=== PATIENT | male | born 1960 | race Caucasian/White ===

== ENCOUNTER 2017-01-05 20:09 | Emergency (ER) | payer BC ==
[~2017-01-05] VITALS: Ht 177.8 cm; Wt 93.2 kg
[~2017-01-05 20:09] MED LIST: AMLO10TA2 PO; ATEN50TA8 PO; CHLO10CA7 PO; OXYC1CAP5 PO; TRMCR130WC TOP; ZOLP10TA6 PO
[2017-01-05 20:14] VITALS: TEMP 36.7
[2017-01-05] MEDS ORDERED: SODIUM CHLORIDE 0.9% 1000ML 1,000 ML IV STA (20:44)
[2017-01-05] MEDS ORDERED: THIAMINE HCL 100 MG/ML 2 ML VIAL IV STA (20:44)
[2017-01-05 20:47] VITALS: Ht 177.8 cm; Wt 93.2 kg
--- NOTE | 2017-01-05 20:47 | EMERGENCY ROOM VISIT NOTE ---
History Report prepared by Shannonibe: Nia Carney Under the Supervision of: Dr. Mil Haskins D.O. First contact with patient: 20:24 Chief Complaint: BILATERAL LEG WEAKNESS Stated Complaint: LEG WEAKNESS History of Present Illness The patient is a 56 year old male who presents to the Emergency Room with complaints of persistent bilateral leg weakness. He is accompanied by his . He reports he was taking his dog for a walk earlier this evening, when as he was throwing sticks for his dog, both of his legs "gave out" and he fell down. He was able to crawl to his truck and call his for help. The patient recently underwent cataract surgery and reports the surgeon told him he had atrial fibrillation and was almost unable to have the surgery. He notes the atrial fibrillation is a very recent diagnoses and he does not take daily blood thinners. The patient reports he "smashed" his left shoulder 2 weeks ago after a fall. He does admit to heavy ETOH use but states he has cut back "90%". He denies any recent fevers, shortness of breath, chest pain, back pain, abdominal pain, nausea or vomiting. He admits to some neck pain but states this is chronic for him. 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 A total of 10 systems reviewed and were otherwise negative. Past Medical & Surgical Medical Problems: (1) Hypertension Surgical Problems: (1) History of appendectomy Family History Cancer Social History Smoking Status: Never Smoker Smokeless Tobacco Use: No Alcohol Use: heavy Drug Use: none Marital Status: Housing Status: lives with family Occupation Status: retired Current/Historical Medications Scheduled Alendronate Sodium (Fosamax), 70 MG PO WK Amlodipine Besylate (Norvasc), 10 MG PO DAILY Atenolol (Tenormin), 50 MG PO DAILY Chlordiazepoxide (Librium), 10 MG PO QID Omeprazole (Prilosec), 20 MG PO DAILY Ranitidine (Zantac), 300 MG PO HS Allergies Coded Allergies: Naltrexone (Verified Allergy, Unknown, Hallucinations, 01/05/17) ROSEANNE Inhibitors (Verified Adverse Reaction, Intermediate, Cough, 06/06/13) Physical Exam Vital Signs Date Time Temp Pulse Resp B/P (MAP) Pulse Ox O2 Delivery O2 Flow Rate FiO2 01/05/17 23:15 111 19 125/96 97 01/05/17 22:27 103 18 135/71 95 Room Air 01/05/17 21:21 108 01/05/17 20:55 94 Room Air 01/05/17 20:55 94 Room Air 01/05/17 20:14 36.7 90 18 124/84 94 Room Air Physical Exam GENERAL: Patient is awake, mildly intoxicated, but not anxious appearing. EYES: Horizontal nystagmus in both directions. The conjunctivae are clear. The pupils are round and reactive. EARS, NOSE, MOUTH AND THROAT: The nose is without any evidence of any deformity. Mucous membranes are moist tongue is midline NECK: The neck is nontender and supple. RESPIRATORY: Normal respiratory effort is noted there is no evidence of wheezing rhonchi or rales CARDIOVASCULAR: Regular rate and rhythm noted there no murmurs rubs or gallops normal S1 normal S2 GASTROINTESTINAL: The abdomen is soft. Bowel sounds are present in all quadrants. Abdomen is nontender MUSCULOSKELETAL/EXTREMITIES: There is no evidence of gross deformity full range of motion is noted in the hips and shoulders SKIN: Abrasions over both knees. Pedal edema noted bilaterally. No signs of cellulitis. There is no obvious evidence of any rash. There are no petechiae, pallor or cyanosis noted. NEUROLOGIC: Patient is awake alert and oriented x3 Patellar tendon reflexes 1+ bilaterally, patient did not have a drift in the lower extremities. Medical Decision & Procedures ER Provider Diagnostic Interpretation: Radiology results as stated below per my review and radiologist interpretation: CERVICAL SPINE CT CT DOSE: HISTORY: Trauma fall TECHNIQUE: Multiaxial CT images of the cervical spine were performed and reformatted in the sagittal and coronal plane without the use of contrast. COMPARISON: None. FINDINGS: No fractures. No subluxation. Prevertebral soft tissues and the C1-C2 interval are intact. No pneumothorax. Degenerative disc changes throughout IMPRESSION: No fractures within the cervical spine. Degenerative change Electronically signed by: Lalito Rowell M.D. 01/05/2017 9:41 PM CHEST ONE VIEW PORTABLE CLINICAL HISTORY: EVALUATE ALTERED MENTAL STATUS/WEAKNESS dyspnea COMPARISON STUDY: 01/03/2013 FINDINGS: Chronic left suprahilar and left apical glottic change. Lungs otherwise appear clear. Mild stable cardia megaly. Diaphragms smooth. IMPRESSION: Chronic change left apex. No acute process. Electronically signed by: Lalito Rowell M.D. 01/05/2017 9:[address]AST CT DOSE: 1143.26 mGy.cm HISTORY: Mental status change EVALUATE ALTERED MENTAL STATUS/WEAKNESS TECHNIQUE: Multiaxial CT images of the head were performed without the use of intravenous contrast. Comparison: None. Findings: The paranasal sinuses and mastoid air cells are clear. The calvarium and skull base are intact. The ventricles and sulci are within normal limits. There is no mass, hematoma, midline shift, or acute infarct. Impression: No acute intracranial abnormality. Electronically signed by: Lalito Rowell M.D. 01/05/2017 9:39 PM Laboratory Results 01/05/17 21:00 Red Blood Count 4.23, Mean Corpuscular Volume 91.3, Mean Corpuscular Hemoglobin 32.9, Mean Corpuscular Hemoglobin Concent 36.0, Mean Platelet Volume 8.8, Neutrophils (%) (Auto) 61.9, Lymphocytes (%) (Auto) 27.0, Monocytes (%) (Auto) 8.5, Eosinophils (%) (Auto) 2.1, Basophils (%) (Auto) 0.4, Neutrophils # (Auto) 4.12, Lymphocytes # (Auto) 1.80, Monocytes # (Auto) 0.57, Eosinophils # (Auto) 0.14, Basophils # (Auto) 0.03 01/05/17 21:00 Test 01/05/17 21:00 01/05/17 21:09 01/05/17 22:25 White Blood Count 6.67 K/uL (4.8-10.8) Red Blood Count 4.23 M/uL (4.7-6.1) Hemoglobin 13.9 g/dL (14.0-18.0) Hematocrit 38.6 % (42-52) Mean Corpuscular Volume 91.3 fL (80-100) Mean Corpuscular Hemoglobin 32.9 pg (25-34) Mean Corpuscular Hemoglobin Concent 36.0 g/dl (32-36) Platelet Count 296 K/uL (130-400) Mean Platelet Volume 8.8 fL (7.4-10.4) Neutrophils (%) (Auto) 61.9 % Lymphocytes (%) (Auto) 27.0 % Monocytes (%) (Auto) 8.5 % Eosinophils (%) (Auto) 2.1 % Basophils (%) (Auto) 0.4 % Neutrophils # (Auto) 4.12 K/uL (1.4-6.5) Lymphocytes # (Auto) 1.80 K/uL (1.2-3.4) Monocytes # (Auto) 0.57 K/uL (0.11-0.59) Eosinophils # (Auto) 0.14 K/uL (0-0.5) Basophils # (Auto) 0.03 K/uL (0-0.2) RDW Standard Deviation 43.7 fL (36.4-46.3) RDW Coefficient of Variation 13.1 % (11.5-14.5) Immature Granulocyte % (Auto) 0.1 % Immature Granulocyte # (Auto) 0.01 K/uL (0.00-0.02) Prothrombin Time 11.3 SECONDS (9.0-12.0) Prothromb Time International Ratio 1.1 (0.9-1.1) Activated Partial Thromboplast Time 27.3 SECONDS (21.0-31.0) Partial Thromboplastin Ratio 1.1 Anion Gap 13.0 mmol/L (3-11) Est Creatinine Clear Calc Drug Dose 105.2 ml/min Estimated GFR () 109.6 Estimated GFR (Non- 94.5 BUN/Creatinine Ratio 6.0 (10-20) Calcium Level 8.6 mg/dl (8.5-10.1) Magnesium Level 1.6 mg/dl (1.8-2.4) Total Bilirubin 0.3 mg/dl (0.2-1) Direct Bilirubin 0.1 mg/dl (0-0.2) Aspartate Amino Transf (AST/SGOT) 45 U/L (15-37) Alanine Aminotransferase (ALT/SGPT) 69 U/L (12-78) Alkaline Phosphatase 49 U/L (45-117) Total Creatine Kinase 177 U/L (39-308) Creatine Kinase MB 2.0 ng/ml (0.5-3.6) Creatine Kinase MB Ratio 1.1 (0-3.0) Troponin I < 0.015 ng/ml (0-0.045) Total Protein 8.0 gm/dl (6.4-8.2) Albumin 4.0 gm/dl (3.4-5.0) Lipase 142 U/L (73-393) Thyroid Stimulating Hormone (TSH) 1.330 uIu/ml (0.300-4.500) Free Thyroxine 1.03 ng/dl (0.80-1.60) Ethyl Alcohol mg/dL 336.0 mg/dl (0-3) Bedside Glucose 104 mg/dl (70-99) Urine Color YELLOW Urine Appearance CLEAR (CLEAR) Urine pH 5.0 (4.5-7.5) Urine Specific [place] 1.009 (1.000-1.030) Urine Protein NEG (NEG) Urine Glucose (UA) NEG (NEG) Urine Ketones NEG (NEG) Urine Occult Blood NEG (NEG) Urine Nitrite NEG (NEG) Urine Bilirubin NEG (NEG) Urine Urobilinogen NEG (NEG) Urine Leukocyte Esterase NEG (NEG) Urine Opiates Screen NEG (NEG) Urine Methadone, Qualitative NEG (NEG) Urine Barbiturates NEG (NEG) Urine Phencyclidine (PCP) Level NEG (NEG) Ur Amphetamine/Methamphetamine NEG (NEG) MDMA (Ecstasy) Screen NEG (NEG) Urine Benzodiazepines Screen POS (NEG) Urine Cocaine Metabolite NEG (NEG) Urine Marijuana (THC) NEG (NEG) Laboratory results per my review. Medications Administered Medications (Trade) Dose Ordered Sig/Oliva Route Start Time Stop Time Status Last Admin Dose Admin Sodium Chloride 1,000 ml @ 999 mls/hr Q1H1M STAT IV 01/05/17 20:44 01/05/17 21:44 DC 01/05/17 21:13 999 MLS/HR Thiamine HCl (Vitamin B-1 Inj) 100 mg NOW STAT IV 01/05/17 20:44 01/05/17 20:45 DC 01/05/17 21:14 100 MG Magnesium Sulfate (Magnesium Sulfate) 1 gm NOW STAT IV 01/05/17 21:38 01/05/17 21:39 DC 01/05/17 21:38 1 GM ECG Indication: weakness (bilateral leg weakness) Rate (beats per minute): 84 Rhythm: atrial fibrillation Findings: other (No PVC's, no acute ST segments abnormalities) Comparison ECG Date: Atrial fibrillation has replaced normal sinus rhythm compared to EKG from December 03, 2012 ED Course 2036: The patient was evaluated in room B2. A complete history and physical examination were performed. 2043: Thiamine HCl 100 mg IV, NSS 1000 ml @ 999 mls/hr IV. 2137: Magnesium Sulfate 1 gm IV. 2299: I reevaluated the patient. I discussed his results and discharge instructions and he verbalized complete understanding and agreement. Medical Decision Medication Reconciliation: I attest that I have personally reviewed the patient' s current medications list. Blood pressure screening: Patient was found to have normal blood pressure on screening and does not require follow-up. Prior records/ancillary studies reviewed and summarized above. Nursing notes reviewed. Differential diagnosis: Etiologies such as metabolic, infection, hypo/hyperglycemia, electrolyte abnormalities, cardiac sources, intracerebral event, toxicologic, neurologic, as well as others were entertained. The patient is a 56-year-old male who presented to the emergency department with his significant other for an evaluation of weakness in his lower extremity' s. The patient discusses that he was at an outdoor area with his dog when he started noticing inability to walk. The patient initially stated that he had a history of alcohol use in the past but states he has not drank alcohol in quite some time. I discussed the patient's laboratory and radiographic studies with him. The patient was found have a significant elevation in his alcohol level but I was more concerned that he would have an electrolyte abnormality such as potassium or magnesium that would be causing the patient's weakness. He did have fine mean and IV fluids in the emergency department. He was also treated with IV magnesium. I discussed the patient's laboratory and radiographic studies with him. On subsequent reevaluation he was feeling much better. I discussed his condition with his significant other is well. The patient was found have atrial fibrillation which she states is not new it was found recently when he was being treated for cataracts. At this time I discussed this diagnosis with him. He his rate is not uncontrolled and this is likely because of his other medications. The patient would not be a good candidate for anticoagulation at this time because of his chronic alcohol use. He states that he does fall from time to time. I discussed this with him as well as his significant other and stated that even his past medical history and age he should receive a formal workup by a pharmacy helper or his primary care physician to determine whether or not he could be started on anticoagulation as well as aggressive management to stop abusing alcohol. The patient was encouraged to rest and avoid any strenuous activity. He was also encouraged to continue all medications as prescribed. He was also encouraged return to the emergency department immediately if symptoms change worsen or the need arises. Impression Primary Impression: Alcohol intoxication Additional Impressions: Hypomagnesemia Weakness Atrial fibrillation Scribe Attestation The scribe's documentation has been prepared under my direction and personally reviewed by me in its entirety. I confirm that the note above accurately reflects all work, treatment, procedures, and medical decision making performed by me. Departure Information Dispostion Home / Self-Care Referrals Saumya Lala M.D. (PCP) Patient Instructions Atrial Fibrillation, ED Alcohol Abuse, My [facility] Additional Instructions Call your family to schedule follow-up appointment. You may require further workup and treatment for the atrial fibrillation. Drink plenty clear liquids. Avoid any further alcoholic beverages. Do not operate any heavy machinery including driving a vehicle for next 24 hours because your alcohol level was very elevated in the emergency department. Return to the emergency apartment immediately symptoms change worsen or the need arises. Problem Qualifiers Primary Impression: Alcohol intoxication Complication of substance-induced condition: uncomplicated Qualified Codes: F10.920 - Alcohol use, unspecified with intoxication, uncomplicated Additional Impressions: Atrial fibrillation Atrial fibrillation type: unspecified Qualified Codes: I48.91 - Unspecified atrial fibrillation
[2017-01-05 20:55] VITALS: O2SAT 94
[2017-01-05 21:15] LABS: BASO % 0.4 %; BASO ABS # 0.03 K/uL (0-0.2); COMPLETE YES; EOS % 2.1 %; HEMATOCRIT 38.6 % (42-52); IG% 0.1 %; MEAN CELL VOLUME 91.3 fL (80-100); MEAN CORPUSCULAR HEMOGLOBIN 32.9 pg (25-34); MEAN PLATELET VOLUME 8.8 fL (7.4-10.4); MONO % 8.5 %; NEUT % 61.9 %; PLATELET COUNT 296 K/uL (130-400); RED BLOOD COUNT 4.23 M/uL (4.7-6.1); WHITE BLOOD COUNT 6.67 K/uL (4.8-10.8)
[2017-01-05] MEDS ORDERED: ALEN70TA4 PO (21:21)
[2017-01-05] MEDS ORDERED: PRLSR20 PO (21:21)
[2017-01-05] MEDS ORDERED: RANI300T2 PO (21:21)
[2017-01-05 21:26] LABS: INR 1.1 (0.9-1.1); PARTIAL THROMBOPLASTIN RATIO 1.1; PROTHROMBIN TIME (PATIENT) 11.3 SECONDS (9.0-12.0)
[2017-01-05 21:30] LABS: ALT/SGPT 69 U/L (12-78); BLOOD UREA NITROGEN 6 mg/dl (7-18); CARBON DIOXIDE 23 mmol/L (21-32); CHLORIDE 95 mmol/L (98-107); CREATININE 0.91 mg/dl (0.60-1.40); GLUCOSE 102 mg/dl (70-99); MAGNESIUM 1.6 mg/dl (1.8-2.4); POTASSIUM 4.3 mmol/L (3.5-5.1); SODIUM 131 mmol/L (136-145)
--- NOTE | 2017-01-05 21:30 | DIAGNOSTIC IMAGING REPORT ---
CHEST ONE VIEW PORTABLE CLINICAL HISTORY: EVALUATE ALTERED MENTAL STATUS/WEAKNESS dyspnea COMPARISON STUDY: 01/03/2013 FINDINGS: Chronic left suprahilar and left apical glottic change. Lungs otherwise appear clear. Mild stable cardia megaly. Diaphragms smooth. IMPRESSION: Chronic change left apex. No acute process. Electronically signed by: Lalito Rowell M.D. 01/05/2017 9:29 PM Dictated Date/Time: 01/05/2017 9:28 PM
[2017-01-05] MEDS ORDERED: MAGNESIUM SULFATE 1GM / D5W 1 GM BAG IV STA (21:38)
[2017-01-05 21:40] LABS: AST/SGOT 45 U/L (15-37)
[2017-01-05 21:41] LABS: ALKALINE PHOSPHATASE 49 U/L (45-117); CKMB/CK RATIO 1.1 (0-3.0)
--- NOTE | 2017-01-05 21:41 | DIAGNOSTIC IMAGING REPORT ---
HEAD CT NONCONTRAST CT DOSE: 1143.26 mGy.cm HISTORY: Mental status change EVALUATE ALTERED MENTAL STATUS/WEAKNESS TECHNIQUE: Multiaxial CT images of the head were performed without the use of intravenous contrast. Comparison: None. Findings: The paranasal sinuses and mastoid air cells are clear. The calvarium and skull base are intact. The ventricles and sulci are within normal limits. There is no mass, hematoma, midline shift, or acute infarct. Impression: No acute intracranial abnormality. Electronically signed by: Lalito Rowell M.D. 01/05/2017 9:39 PM Dictated Date/Time: 01/05/2017 9:38 PM
--- NOTE | 2017-01-05 21:42 | DIAGNOSTIC IMAGING REPORT ---
CERVICAL SPINE CT CT DOSE: HISTORY: Trauma fall TECHNIQUE: Multiaxial CT images of the cervical spine were performed and reformatted in the sagittal and coronal plane without the use of contrast. COMPARISON: None. FINDINGS: No fractures. No subluxation. Prevertebral soft tissues and the C1-C2 interval are intact. No pneumothorax. Degenerative disc changes throughout IMPRESSION: No fractures within the cervical spine. Degenerative change Electronically signed by: Lalito Rowell M.D. 01/05/2017 9:41 PM Dictated Date/Time: 01/05/2017 9:40 PM
[2017-01-05 22:19] LABS: CALCIUM 8.6 mg/dl (8.5-10.1)
[2017-01-05 22:44] LABS: URINE APPEARANCE CLEAR (CLEAR); URINE BILIRUBIN NEG (NEG); URINE COLOR YELLOW; URINE NITRITE NEG (NEG); URINE SPECIFIC GRAVITY 1.009 (1.000-1.030); UROBILINOGEN NEG (NEG)
[2017-01-05 22:49] LABS: MANUAL MICROSCOPIC REQUIRED? NO; REVIEW REQ? NO
[2017-01-05 23:08] LABS: BENZODIAZEPINE, URINE POS (NEG); COCAINE,URINE NEG (NEG); PHENCYCLIDINE, URINE NEG (NEG)
[2017-01-05 23:15] VITALS: BP 125/96; PULSE 111; O2SAT 97
[2017-01-09 11:50] LABS: HYDROXYETHYLFLURAZEPAM CONF NEGATIVE NG/ML (CUTOFF=50); HYDROXYMIDAZOLAM NEGATIVE NG/ML (CUTOFF=50); HYDROXYTRIAZOLAM CONF NEGATIVE NG/ML (CUTOFF=50); TEMAZEPAM CONF NEGATIVE NG/ML (CUTOFF=50)
[2017-01-13] MEDS ORDERED: FLV1 PO (10:34)
[2017-01-13] MEDS ORDERED: METO50TA16 PO (10:34)
[2017-01-13] MEDS ORDERED: LPR100 PO (10:34)
[2017-01-13] MEDS ORDERED: THM100 PO (10:34)
[2017-01-13] MEDS ORDERED: CMD25 PO (10:34)
[2017-01-13] MEDS ORDERED: MULT-589 PO (10:34)
== END 2017-01-05 23:16 | disposition home or self-care (01) ==
LOC: C.EDB 20:11
DX: F10.920 Alcohol use, unspecified with intoxication, uncomplicated (principal); E83.42 Hypomagnesemia; R53.1 Weakness; I48.91 Unspecified atrial fibrillation; I10 Essential (primary) hypertension

== ENCOUNTER 2017-01-07 16:56 | Inpatient (IN) | payer BC ==
[~2017-01-07] VITALS: Ht 177.8 cm; Wt 89.6 kg
[~2017-01-07 16:56] MED LIST changes: +ALEN70TA4 PO; -OXYC1CAP5 PO; +PRLSR20 PO; +RANI300T2 PO; -TRMCR130WC TOP; -ZOLP10TA6 PO
[2017-01-07 18:10] VITALS: O2SAT 99
[2017-01-07] MEDS ORDERED: ONDANSETRON INJ 2 MG/ML 2 ML VIAL IV PRN (18:15)
[2017-01-07] MEDS ORDERED: PATIENT'S HEIGHT AND/OR WEIGHT NEEDED SCH (18:30)
[2017-01-07] MEDS ORDERED: IV FLUIDS COMPLETED PRN (18:30)
[2017-01-07 18:41] LABS: HEMATOCRIT 44.4 % (42-52); MEAN CELL VOLUME 91.4 fL (80-100); MEAN CORPUSCULAR HEMOGLOBIN 32.5 pg (25-34); MEAN PLATELET VOLUME 9.2 fL (7.4-10.4); PLATELET COUNT 331 K/uL (130-400); RED BLOOD COUNT 4.86 M/uL (4.7-6.1); WHITE BLOOD COUNT 6.12 K/uL (4.8-10.8)
[2017-01-07 18:43] LABS: MEAN CORPUSCULAR HGB CONC 35.6 g/dl (32-36)
[2017-01-07] MEDS ORDERED: CHLORDIAZEPOXIDE 10 MG CAP PO STA (18:49)
[2017-01-07 18:51] VITALS: BP 154/93; PULSE 107; TEMP 36.7; O2SAT 99; Ht 177.8 cm; Wt 89.6 kg
[2017-01-07 18:52] LABS: INR 1.1 (0.9-1.1); PROTHROMBIN TIME (PATIENT) 11.3 SECONDS (9.0-12.0)
--- NOTE | 2017-01-07 18:59 | DIAGNOSTIC IMAGING REPORT ---
CHEST ONE VIEW PORTABLE CLINICAL HISTORY: Atrial fibrillation COMPARISON STUDY: [id number] FINDINGS: The heart remains mildly enlarged. There are stable postsurgical changes within the left upper lobe. There is no overt failure. There is no acute parenchymal consolidation.[ No pleural effusions are visualized. IMPRESSION: Chronic left upper lobe changes. No acute findings. Electronically signed by: Manohar Zapata M.D. 01/07/2017 6:58 PM Dictated Date/Time: 01/07/2017 6:56 PM
[2017-01-07] MEDS ORDERED: GABAPENTIN 600 MG TAB PO SCH (19:00)
[2017-01-07] MEDS ORDERED: MAGN1TAB41 PO (19:08)
[2017-01-07] MEDS ORDERED: IBUP-1459 PO (19:08)
[2017-01-07] MEDS ORDERED: POLYSOL50 OPL (19:08)
[2017-01-07] MEDS ORDERED: KETO0.5S22 OPL (19:08)
[2017-01-07] MEDS ORDERED: OXYC1CAP5 PO (19:08)
[2017-01-07] MEDS ORDERED: METOPROLOL TARTRATE 1 MG/ML VIAL IV PRN (19:15)
[2017-01-07] MEDS ORDERED: OXYCODONE HCL IR 5 MG TAB (IMMEDIATE RELEASE) PO PRN (19:15)
[2017-01-07] MEDS ORDERED: RANITIDINE HCL 150 MG TAB PO PRN (19:15)
[2017-01-07] MEDS ORDERED: MULTI-VITAMIN INFUSION INJ 10 ML, THIAMINE HCL INJ 100 MG, FoLIC ACID INJ 1 MG in SODIU... IV STA (19:17)
[2017-01-07] MEDS ORDERED: PRED1SUS17 OPL (19:19)
[2017-01-07 19:27] LABS: BUN/CREATININE RATIO 6.7 (10-20); CALCIUM 8.8 mg/dl (8.5-10.1); CREATININE 0.73 mg/dl (0.60-1.40); MAGNESIUM 1.9 mg/dl (1.8-2.4); POTASSIUM 3.7 mmol/L (3.5-5.1)
[2017-01-07 19:59] LABS: CKMB/CK RATIO 0.9 (0-3.0)
[2017-01-07] MEDS ORDERED: GABAPENTIN 1200MG LOADING DOSE PO SCH (20:00)
[2017-01-07] MEDS: THIAMINE HCL 100 MG TAB PO SCH (20:05)
[2017-01-07] MEDS: CHLORDIAZEPOXIDE 10 MG CAP PO SCH (20:07)
--- NOTE | 2017-01-07 21:12 | History and Physical ---
History & Physical Date & Time of Service: Jan 07, 2017 at 19:19 Chief Complaint: Atrial Fibrillation Primary Care Physician: Saumya Lala M.D. History of Present Illness Source: patient, clinic records, hospital records This is a 56 year old male with PMH of hypertension, alcohol abuse, dyslipidemia , and other problems listed below who presents as a direct admission from Dr. Lala's office for recent onset atrial fibrillation. Patient states Afib was discovered incidentally at outpatient cataract surgery 4 days ago on 01/03. Patient had been sober since beginning of month until he started drinking beer again on Saturday and Saturday, states he drank "a lot" of beer, unclear how much. On Saturday he reports losing control of both of his hips while playing with his dog outside. No fall, injury, head trauma. This resolved after 30 minutes. Patient was seen in ER on Friday 01/[address] head and neck. Pt was noted to be in Afib with controlled rate. Alcohol level was 336. Mag was low and he was given IV replacement. Patient was seen by Dr. Lala today in follow up who noted he was still in Afib and sent him for direct admission. Last drink was yesterday. He reports prior history of alcohol withdrawal. No seizures. Pt has been on Librium at home. He is mildly tremulous with extending the upper extremities. He reports chronic c-spine pain and recent L shoulder fracture 1 month ago. Patient denies fever, chills, URI symptoms, cough, SOB, chest pain, palpitations, dizziness, syncope, abdominal pain, N/V/D, urinary changes, anxiety, calf pain, worsening of chronic BLLE edema. No prior hx of AF, CAD, CHF, DM, TIA, CVA. He reports history of GIB years ago, details unclear, but no recent abnormal bleeding. Past Medical/Surgical History Medical Problems: (1) Adjustment disorder with depressed mood Status: Chronic (2) Alcohol abuse Status: Chronic (3) Alcoholic liver damage Status: Chronic (4) Atrial fibrillation Status: Chronic (5) Cervical spinal stenosis Status: Chronic (6) Dyslipidemia Status: Chronic (7) Lung nodule Status: Chronic (8) Sarcoidosis of lung Status: Chronic Surgical Problems: (1) History of cataract surgery Status: Chronic (2) History of surgical removal of pilonidal cyst Status: Chronic (3) S/P appendectomy Status: Chronic (4) S/P thoracotomy Permanent Comment: 12/31/12- mediastinoscopy, biopsy of right supraclavicular node, biopsy anterior tracheal node, biopsy right 2R node, wedge resection left upper lobe x 2 with lesions Status: Chronic (5) S/P tonsillectomy Status: Chronic (6) S/P vasectomy Status: Chronic Family History Cancer FH: CAD (coronary artery disease) FATHER GRANDFATHER Hypertension FATHER Social History Drinks soda- decaffeinated. Smoking Status: Never Smoker Alcohol Use: heavy Drug Use: none Marital Status: Housing status: lives with significant other Immunizations History of Influenza Vaccine: Yes Influenza Vaccine Date: May 07, 2013 History of Tetanus Vaccine?: Yes Tetanus Immunization Date: Dec 31, 2010 History of Pneumococcal: No History of Hepatitis B Vaccine: No Allergies Coded Allergies: Naltrexone (Verified Allergy, Unknown, Hallucinations, 01/05/17) ROSEANNE Inhibitors (Verified Adverse Reaction, Intermediate, Cough, 06/06/13) Home Medications Scheduled Alendronate Sodium (Fosamax), 70 MG PO WK Amlodipine Besylate (Norvasc), 10 MG PO DAILY Atenolol (Tenormin), 50 MG PO DAILY Chlordiazepoxide (Librium), 10 MG PO QID Ketorolac Tromethamine (Ophth) (Ketorolac Tromethamine), Unknown Dose OPL QID Magnesium Oxide (Magnesium), Unknown Dose PO DAILY Omeprazole (Prilosec), 20 MG PO DAILY Polymyxin/Trimethoprim Oph (Polytrim Oph), Unknown Dose OPL QID Prednisolone Acetate (Ophth) (Prednisolone Acetate), Unknown Dose OPL QID Scheduled PRN Ibuprofen (Motrin), 400 MG PO BID PRN for Pain Oxycodone Hcl (Oxycodone Hcl), 1 CAP PO TID PRN for severe pain Ranitidine (Zantac), 300 MG PO HS PRN for Dyspepsia Review of Systems Ten systems reviewed and negative except as noted in HPI. Physical Exam General Appearance: WD/WN, no apparent distress, + pertinent finding (alert cooperative 56 year old male) Head: normocephalic, atraumatic Eyes: normal inspection, PERRL, EOMI, sclerae normal ENT: hearing grossly normal, pharynx normal Neck: supple, trachea midline Respiratory/Chest: lungs clear, normal breath sounds, no respiratory distress Cardiovascular: no murmur, normal peripheral pulses, + irregularly irregular ( rate 100's) Abdomen/GI: normal bowel sounds, non tender, soft Extremities/Musculoskelatal: no calf tenderness, + pertinent finding (1+ pretibial edema bilaterally- chronic per patient. LUE in sling. ) Neurologic/Psych: alert, normal mood/affect, oriented x 3, + pertinent finding (mild tremor of outstretched upper extremities. no focal deficit on gross examination. ) Skin: normal color, warm/dry, + pertinent finding (superficial abrasions on lower extremities) Diagnostics Laboratory Results Results Past 24 Hours Test 01/07/17 18:11 01/07/17 18:30 01/07/17 18:42 01/07/17 18:44 Range/Units White Blood Count 6.12 4.8-10.8 K/uL Red Blood Count 4.86 4.7-6.1 M/uL Hemoglobin 15.8 14.0-18.0 g/dL Hematocrit 44.4 42-52 % Mean Corpuscular Volume 91.4 80-100 fL Mean Corpuscular Hemoglobin 32.5 25-34 pg Mean Corpuscular Hemoglobin Concent 35.6 32-36 g/dl RDW Standard Deviation 44.6 36.4-46.3 fL RDW Coefficient of Variation 13.3 11.5-14.5 % Platelet Count 331 130-400 K/uL Mean Platelet Volume 9.2 7.4-10.4 fL Prothrombin Time 11.3 9.0-12.0 SECONDS Prothromb Time International Ratio 1.1 0.9-1.1 Activated Partial Thromboplast Time 27.0 21.0-31.0 SECONDS Partial Thromboplastin Ratio 1.0 Creatine Kinase MB Ratio 0-3.0 Test 01/07/17 18:51 01/07/17 19:18 Range/Units Diagnostic Radiology CHEST ONE VIEW PORTABLE CLINICAL HISTORY: Atrial fibrillation COMPARISON STUDY: [id number] FINDINGS: The heart remains mildly enlarged. There are stable postsurgical changes within the left upper lobe. There is no overt failure. There is no acute parenchymal consolidation.[ No pleural effusions are visualized. IMPRESSION: Chronic left upper lobe changes. No acute findings. EKG atrial fibrillation with RVR, 106 bpm, nonspecific T wave inversion in III Impression Assessment and Plan RECENTLY DIAGNOSED ATRIAL FIBRILLATION Discovered incidentally at outpatient eye surgery 01/03/17 Rate stable in 100's TSH was normal on ER visit 01/05, Mag low on 01/05- replaced Electrolytes WNL today, cardiac enzymes WNL Alcohol abuse noted- discussed with patient about importance of cessation CXR- no acute findings Check echo CHADS2 score is 1 for hypertension Start on IV heparin drip Continue atenolol 50 mg daily; add IV Lopressor 2.5 mg PRN HR >130 Consult cardiology in AM ALCOHOL ABUSE Monitor for withdrawal Last drink yesterday 01/06 Check alcohol level, urine drug screen Continue home dose of Librium Gabapentin per protocol Banana bag Thiamine daily 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 Lala for primary care Patient seen in collaboration with Dr. Duncan. Please see his addendum. Attending Addendum:: The patient was seen and examined History of moderate alcohol intake Noted to have Irregular Heart rhythm for the last 1 week Denies any symptoms Was sent in from doctor's office O/E Asymptomatic Hemodynamically stable but tachycardic Chest-clear to ausucltate bilaterally Heart-regular,no murmur Abdomen-benign,no masses,bowel sound present Labs and Imaging studies were reviewed Has AF-started on IV heparin,continue BB,cardiology consult Agree with the assessment and plan. DR Denise Duncan Advanced Directives Existing Living Will: No Existing Power of Cook Syrup Maker: No VTE Prophylaxis VTE Risk Assessment Done? Y/N: Yes Risk Level: Moderate
[2017-01-07] MEDS ORDERED: HEPARIN IV BOLUS 4,000 UNIT in SYRINGE 0 ML IV ONE (21:30)
[2017-01-07] MEDS: HEPARIN 25,000 UNIT/500ML D5W 500 ML IV PRN (21:35)
[2017-01-07 23:26] VITALS: BP 124/81; PULSE 106; TEMP 36.9; O2SAT 97
[2017-01-08 00:30] LABS: BENZODIAZEPINE, URINE POS (NEG); COCAINE,URINE NEG (NEG); PHENCYCLIDINE, URINE NEG (NEG)
[2017-01-08 03:56] LABS: PARTIAL THROMBOPLASTIN RATIO 1.4
[2017-01-08 04:00] VITALS: BP 153/96; PULSE 108; TEMP 36.8; O2SAT 96
[2017-01-08 04:10] LABS: BUN/CREATININE RATIO 6.7 (10-20); CALCIUM 8.8 mg/dl (8.5-10.1); CREATININE 0.88 mg/dl (0.60-1.40); MAGNESIUM 1.9 mg/dl (1.8-2.4); POTASSIUM 4.4 mmol/L (3.5-5.1)
[2017-01-08] MEDS: HEPARIN 25,000 UNIT/500ML D5W 500 ML IV PRN ×3 (04:33→19:20)
[2017-01-08] MEDS ORDERED: HEPARIN IV BOLUS 4,500 UNIT in SYRINGE 0 ML IV ONE (05:00)
[2017-01-08] MEDS: GABAPENTIN 600MG Q6H DOSE PO SCH ×2 (05:32→11:14)
[2017-01-08 07:12] VITALS: BP 120/81; PULSE 101; TEMP 36.9; O2SAT 97
[2017-01-08] MEDS ORDERED: PERFLUTREN LIPID MICROSPHERE (DEFINITY) IV ONE (07:36)
[2017-01-08] MEDS: CHLORDIAZEPOXIDE 10 MG CAP PO SCH ×4 (08:41→21:10)
[2017-01-08] MEDS: ACETAMINOPHEN 325 MG TAB PO PRN ×2 (08:41→16:47)
[2017-01-08] MEDS: AMLODIPINE BESYLATE 5 MG TAB PO SCH (08:42)
[2017-01-08] MEDS: PANTOprazole SOD 40 MG TAB PO SCH (08:42)
--- NOTE | 2017-01-08 08:56 | ECHOCARDIOGRAM REPORT ---
*NOTICE TO RECEIVING REPUBLICAN AGENCY This information is strictly Confidential and protected under [place] law. [place] law prohibits you from making any further disclosure of this information unless further disclosure is expressly permitted by the written consent of the person to whom it pertains or is authorized by law. A general authorization for the release of medical or other information is not sufficient for this purpose. Hospital accepts no responsibility if the information is made available to any other person, INCLUDING THE PATIENT. Interpretation Summary * Name: DAKOTA CID Study Date: 01/08/2017 07:10 AM BP: 153/96 mmHg * Patient Location: .2T\S\E219\S\1 HR: 105 * : 1960 (M/d/yyyy) Gender: Male Height: 70 in * Age: 56 yrs Ethnicity: CA Weight: 197 lb * Ordering Physician: Ary Irby * Referring Physician: Saumya Lala * Performed By: Blessing Escalera RDCS * * Reason For Study: AFIB * BSA: 2.1 m2 * -- Conclusions -- * Normal LV chamber size and wall thickness. * Mildly reduced LV systolic function, EF 40-45%. * Moderate to severe hypokinesis of the anterior, anterolateral, inferolateral and apical brown. * Moderate left atrial enlargement. * No significant valvular pathology. Procedure Details * A contrast injection of Definity was performed to improve assessment of LV function. * Contrast was injected into an intravenous site in the right arm. * One vial of Definity ultrasound contrast was diluted in normal saline to a total volume of 10 ml. A total of '2' ml of solution was administered during imaging. * Lot # [id number] of Definity utilized for procedure. * Expiration date FEB 05. * The attending nurse who injected the contrast agent was PHI AMBROSE. Left Ventricle * The left ventricle is normal in size. * There is normal left ventricular wall thickness. * Ejection Fraction = 40-45%. * Moderate to severe hypokinesis of the anterior, anterolateral, inferolateral and apical brown. Right Ventricle * The right ventricular cavity size is normal (basal dimension <4.2 cm in right ventricular apical 4-chamber view). * The right ventricular systolic function is normal as assessed by tricuspid annular plane systolic excursion (TAPSE) (normal >1.5 cm). Atria * The left atrium is moderately dilated. * Right atrial size is normal. * No ASD detected; PFO is not assessed. Mitral Valve * The mitral valve is normal in structure and function. Tricuspid Valve * The tricuspid valve is normal in structure and function. Aortic Valve * The aortic valve is not well visualized. * No hemodynamically significant valvular aortic stenosis. * There is no significant aortic regurgitation. Pulmonic Valve * The pulmonary valve is not well seen, but the Doppler examination is normal without significant regurgitation or stenosis. Great Vessels * Borderline aortic root dilatation. Pericardium/Pleural * There is no pericardial effusion. MMode 2D Measurements and Calculations IVSd 1.0 cm IVSs 1.8 cm LVIDd 5.5 cm LVIDs 4.3 cm LVPWd 1.1 cm LVPWs 1.3 cm IVS/LVPW 0.93 FS 22.0 % EDV(Teich) 145.3 ml ESV(Teich) 81.5 ml EF(Teich) 43.9 % EDV(cubed) 163.3 ml ESV(cubed) 77.6 ml EF(cubed) 52.5 % % IVS thick 72.1 % % LVPW thick 19.1 % LV mass(C)d 227.6 grams LV mass(C)dI 109.7 grams/m\S\2 LV mass(C)s 263.7 grams LV mass(C)sI 127.1 grams/m\S\2 SV(Teich) 63.8 ml SI(Teich) 30.8 ml/m\S\2 SV(cubed) 85.7 ml SI(cubed) 41.3 ml/m\S\2 Ao root diam 4.1 cm Ao root area 13.0 cm\S\2 LVAd ap4 33.6 cm\S\2 LVLd ap4 8.9 cm EDV(MOD-sp4) 101.5 ml EDV(sp4-el) 108.0 ml LVAs ap4 23.4 cm\S\2 LVLs ap4 7.6 cm ESV(MOD-sp4) 58.0 ml ESV(sp4-el) 60.9 ml EF(MOD-sp4) 42.8 % EF(sp4-el) 43.6 % LVAd ap2 25.1 cm\S\2 LVLd ap2 7.8 cm EDV(MOD-sp2) 66.6 ml EDV(sp2-el) 69.1 ml LVAs ap2 17.6 cm\S\2 LVLs ap2 7.3 cm ESV(MOD-sp2) 35.7 ml ESV(sp2-el) 35.9 ml EF(MOD-sp2) 46.4 % EF(sp2-el) 48.0 % LVLd %diff -14.12 % EDV(MOD-bp) 89.3 ml LVLs %diff -4.45 % ESV(MOD-bp) 45.6 ml EF(MOD-bp) 48.9 % SV(MOD-sp4) 43.5 ml SI(MOD-sp4) 21.0 ml/m\S\2 SV(MOD-sp2) 30.9 ml SI(MOD-sp2) 14.9 ml/m\S\2 SV(MOD-bp) 43.6 ml SI(MOD-bp) 21.0 ml/m\S\2 SV(sp4-el) 47.1 ml SI(sp4-el) 22.7 ml/m\S\2 SV(sp2-el) 33.1 ml SI(sp2-el) 16.0 ml/m\S\2 Doppler Measurements and Calculations MV E max cherelle 94.1 cm/sec MV dec time 0.18 sec Ao V2 max 122.2 cm/sec Ao max PG 6.0 mmHg Ao max PG (full) 4.0 mmHg LV V1 max PG 1.9 mmHg LV V1 max 69.4 cm/sec
[2017-01-08] MEDS ORDERED: POTASSIUM CHLORIDE 10 MEQ TABCR PO STA (10:06)
[2017-01-08 10:36] LABS: PARTIAL THROMBOPLASTIN RATIO 1.7
--- NOTE | 2017-01-08 10:37 | CARDIOLOGY CONSULTATION ---
DATE OF CONSULTATION: 01/08/2017 DATE OF CONSULTATION: 01/08/2017. CONSULTATION REQUESTED BY: Dr. Duncan. REASON FOR CONSULTATION: New onset atrial fibrillation. HISTORY OF PRESENT ILLNESS: Mr. Fountain is a very pleasant 56-year-old gentleman who was sent for direct admission to [facility] on 01/07/2017 from his primary care physician's office for atrial fibrillation. The patient has a longstanding history of alcoholism and he has been following very closely with Dr. Lala as an outpatient; however, recently he underwent cataract surgery on the and was found to be in atrial fibrillation at that time which was a new finding. He was then presented to [facility] on 01/05/2017 after an episode of severe alcohol intoxication for which the patient fell. He was then seen in followup with Dr. Lala on the , he was again found to be in atrial fibrillation and he was directly admitted to [facility] for further treatment. Currently, the patient states he feels fine. He states he has not had any symptoms from a cardiac standpoint and specifically denies experiencing any chest pain, shortness of breath, palpitations, lightheadedness, dizziness, or syncope. Unfortunately, the patient does have ongoing issues with alcohol. He admits to severe heavy alcohol use in the past. He states that he has been trying to get clean lately. He did not drink for several days last week; however, he got some upsetting news last week and so throughout the weekend he admits to drinking approximately 2 cases of beer. Again, this was associated with presentation to the Emergency Department for complaint of fall and being unable to move his legs. At that time the patient was found to be significantly inebriated with no neurologic deficits and he was discharged to home. Currently, the patient states he is very interested in resolving his alcoholism and he states he is never going to have another drink again because he wants to get clean and sober. PAST SURGICAL HISTORY: 1. Vasectomy. 2. Thoracotomy with left wedge resection. 3. Tonsil and adenoidectomy. 4. Appendectomy. 5. Colonoscopy. MEDICAL ILLNESSES: 1. Ongoing alcoholism. 2. History of alcohol withdrawal requiring hospitalization. 3. Alcoholic liver damage. 4. Hypertension. 5. Sarcoidosis. FAMILY HISTORY: Remarkable for mother who has atrial fibrillation and possible coronary artery disease. SOCIAL HISTORY: Denies any tobacco use. Again, he admits to ongoing alcoholism. Denies any recreational drug use. He is and lives at home with his and 2 children. REVIEW OF SYSTEMS: As per HPI, all other review of systems reviewed and negative at this time. ALLERGIES: 1. ROSEANNE INHIBITOR. 2. NALTREXONE. MEDICATIONS AN OUTPATIENT: 1. Oxycodone 5 mg 3 times a day as needed. 2. Librium 4 times a day. 3. Gabapentin 3 times a day. 4. Fosamax weekly. 5. Amlodipine 10 mg daily. 6. Atenolol 10 mg daily. PHYSICAL EXAMINATION: VITALS: Temperature 36.7, pulse 108, respiratory rate 12, blood pressure 125/96. GENERAL: Awake, alert, oriented x3. Resting and intention tremors, stuttering speech. HEAD, EYES, EARS, NOSE, AND THROAT: Normocephalic, atraumatic. Pupils equal, round and react to light and accommodation. Extraocular muscles intact. Anicteric sclerae. Moist mucous membranes. NECK: No JVD, no bruit. CARDIOVASCULAR: Irregularly irregular, unable to appreciate any murmurs, rubs or gallops. PULMONARY: Clear to auscultation bilaterally. No rales, rhonchi, or wheezing. ABDOMEN: Bowel sounds x4, soft. No rebound, guarding, tenderness. No organomegaly. EXTREMITIES: No clubbing, cyanosis or edema. +2 pedal pulses bilaterally. SKIN: Warm and dry. TEST RESULTS: A 12-lead EKG performed upon presentation independently reviewed at this time shows atrial fibrillation with rapid ventricular response at 106 beats per minute, normal axis, normal intervals, no signs of active ischemia. A 2D echocardiogram was read as normal LV chamber size and wall thickness, mildly reduced LV systolic function, EF 40-45%, moderate to severe hypokinesis of the anterior, anterolateral, inferolateral and apical brown. Moderate left atrial enlargement, no significant valvular pathology. IMPRESSIONS: 1. New onset atrial fibrillation with rapid ventricular response. 2. Reduced LV systolic function with wall motion abnormalities. 3. Ongoing alcoholism. 4. Recurrent falls including a humerus fracture. 5. Hypertension. RECOMMENDATIONS: It was my pleasure to see Mr. Fountain in consultation today. The pathophysiology and treatment options for atrial fibrillation were discussed with the patient at great lengths. He was counseled at this point the most prudent course of action will be for rate control as well as initiation of anticoagulation. The patient was counseled though that I am concerned of his ongoing drinking and recurrent falls, and will be hesitant to start anticoagulation. The patient states that he is absolutely done drinking. He is now in fear for his life and would want to avoid stroke at all costs, so as per his preference we will start him on Coumadin today and he will be maintained on a heparin bridge. At the same time, I will discontinue his atenolol, start him on Toprol-XL 25 mg daily for further rate control. I believe in the long-term what we will need to do is follow the patient for the next several months as an outpatient to see if he does remain alcohol free. If he does then we can proceed with possible cardioversion; however should his alcoholism continue then anticoagulation will likely have to be stopped due to concern for falls and possibly life-threatening hemorrhage. In regards to his echocardiogram the wall motion abnormalities are new and they can either be related to the alcoholism, atrial fibrillation or in fact underlying coronary artery disease. So to further discern this we will proceed with cardiac catheterization in the a.m. He will be made n.p.o. after midnight. The patient's last drink was approximately 42 hours ago and I think there is a significant concern for alcohol withdrawal and delirium tremens and the patient should be monitored closely for this. Obviously, should this occur then all cardiac plans will have to be modified.
[2017-01-08 11:15] VITALS: BP 147/84; PULSE 92; TEMP 36.9; O2SAT 95
[2017-01-08] MEDS ORDERED: HEPARIN IV BOLUS 3,000 UNIT in SYRINGE 0 ML IV ONE ×2 (11:30→19:00)
[2017-01-08] MEDS ORDERED: METOPROLOL SUCC 25MG EXT REL TAB PO SCH (12:00)
--- NOTE | 2017-01-08 13:16 | Progress Note ---
Internal Med Progress Note Date of Service: Jan 08, 2017. Provider Documentation: SUBJECTIVE: The patient was seen and examined Denies any symptoms of CP,Palpitation,SOB Agrees to quit drinking OBJECTIVE: Vital Signs-as noted below Exam: General-no distress at rest Eyes-normal ENT-normal Neck-supple Lungs-clear to ausucltate bilaterally Heart-Regular,no murmur appreciated Abdomen-Benign,no masses,bowel sound present Extremities-No edema Neuro-AAOx3 Minimal tremors of the outstretched hands Lab data as noted below. ASSESSMENT & PLAN: RECENTLY DIAGNOSED ATRIAL FIBRILLATION Discovered incidentally at outpatient eye surgery 01/03/17 Rate stable in 100's TSH was normal on ER visit 01/05, Mag low on 01/05- replaced Electrolytes WNL on admission. cardiac enzymes WNL Alcohol abuse noted- discussed with patient about importance of cessation CXR- no acute findings Check echo::: * Normal LV chamber size and wall thickness. * Mildly reduced LV systolic function, EF 40-45%. * Moderate to severe hypokinesis of the anterior, anterolateral, inferolateral and apical borwn. * Moderate left atrial enlargement. * No significant valvular pathology. 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 Lala for primary care Vital Signs: Date Time Temp Pulse Resp B/P (MAP) Pulse Ox O2 Delivery O2 Flow Rate FiO2 01/08/17 12:00 Room Air 01/08/17 11:15 36.9 92 18 147/84 (105) 95 Room Air 01/08/17 08:00 Room Air 01/08/17 07:12 36.9 101 19 120/81 (94) 97 Room Air 01/08/17 04:05 Room Air 01/08/17 04:00 36.8 108 18 153/96 (115) 96 Room Air 01/08/17 03:51 135 154/83 01/08/17 00:00 Room Air 01/07/17 23:26 36.9 106 18 124/81 (95) 97 Room Air 01/07/17 20:00 Room Air 01/07/17 18:51 36.7 107 20 154/93 99 Room Air 01/07/17 18:10 99 Room Air Lab Results: Results Past 24 Hours Test 01/07/17 18:30 01/07/17 18:42 01/07/17 19:44 01/07/17 23:57 Range/Units White Blood Count 6.12 4.8-10.8 K/uL Red Blood Count 4.86 4.7-6.1 M/uL Hemoglobin 15.8 14.0-18.0 g/dL Hematocrit 44.4 42-52 % Mean Corpuscular Volume 91.4 80-100 fL Mean Corpuscular Hemoglobin 32.5 25-34 pg Mean Corpuscular Hemoglobin Concent 35.6 32-36 g/dl RDW Standard Deviation 44.6 36.4-46.3 fL RDW Coefficient of Variation 13.3 11.5-14.5 % Platelet Count 331 130-400 K/uL Mean Platelet Volume 9.2 7.4-10.4 fL Prothrombin Time 11.3 9.0-12.0 SECONDS Prothromb Time International Ratio 1.1 0.9-1.1 Activated Partial Thromboplast Time 27.0 21.0-31.0 SECONDS Partial Thromboplastin Ratio 1.0 Sodium Level 140 136-145 mmol/L Potassium Level 3.7 3.5-5.1 mmol/L Chloride Level 104 98-107 mmol/L Carbon Dioxide Level 24 21-32 mmol/L Anion Gap 12.0 3-11 mmol/L Blood Urea Nitrogen 5 7-18 mg/dl Creatinine 0.73 0.60-1.40 mg/dl Est Creatinine Clear Calc Drug Dose 129.8 ml/min Estimated GFR () 121.0 Estimated GFR (Non- 104.4 BUN/Creatinine Ratio 6.7 10-20 Random Glucose 82 70-99 mg/dl Calcium Level 8.8 8.5-10.1 mg/dl Magnesium Level 1.9 1.8-2.4 mg/dl Total Bilirubin 0.6 0.2-1 mg/dl Aspartate Amino Transf (AST/SGOT) 36 15-37 U/L Alanine Aminotransferase (ALT/SGPT) 56 12-78 U/L Alkaline Phosphatase 54 45-117 U/L Total Creatine Kinase 217 39-308 U/L Creatine Kinase MB 2.0 0.5-3.6 ng/ml Creatine Kinase MB Ratio 0.9 0-3.0 Troponin I < 0.015 0-0.045 ng/ml Total Protein 8.1 6.4-8.2 gm/dl Albumin 4.1 3.4-5.0 gm/dl Globulin 4.0 2.5-4.0 gm/dl Albumin/Globulin Ratio 1.0 0.9-2 Ethyl Alcohol mg/dL 37.0 0-3 mg/dl Vitamin B12 Level 362 211-911 pg/mL Folate 11.17 >5.38 ng/mL Hepatitis C Antibody Screen NEG NEG Urine Opiates Screen NEG NEG Urine Methadone, Qualitative NEG NEG Urine Barbiturates NEG NEG Urine Phencyclidine (PCP) Level NEG NEG Ur Amphetamine/Methamphetamine NEG NEG MDMA (Ecstasy) Screen NEG NEG Urine Benzodiazepines Screen POS NEG Urine Cocaine Metabolite NEG NEG Urine Marijuana (THC) NEG NEG Test 01/08/17 03:40 01/08/17 10:16 Range/Units Activated Partial Thromboplast Time 37.3 44.8 21.0-31.0 SECONDS Partial Thromboplastin Ratio 1.4 1.7 Sodium Level 146 136-145 mmol/L Potassium Level 4.4 3.5-5.1 mmol/L Chloride Level 108 98-107 mmol/L Carbon Dioxide Level 30 21-32 mmol/L Anion Gap 8.0 3-11 mmol/L Blood Urea Nitrogen 6 7-18 mg/dl Creatinine 0.88 0.60-1.40 mg/dl Est Creatinine Clear Calc Drug Dose 107.7 ml/min Estimated GFR () 112.1 Estimated GFR (Non- 96.7 BUN/Creatinine Ratio 6.7 10-20 Random Glucose 95 70-99 mg/dl Calcium Level 8.8 8.5-10.1 mg/dl Magnesium Level 1.9 1.8-2.4 mg/dl
[2017-01-08] MEDS: WARFARIN SOD 5 MG TAB PO SCH (16:06)
[2017-01-08 16:14] VITALS: BP 120/91; PULSE 97; TEMP 36.4; O2SAT 100
[2017-01-08 18:29] LABS: PARTIAL THROMBOPLASTIN RATIO 1.8
[2017-01-08] MEDS: THIAMINE HCL 100 MG TAB PO SCH (19:20)
[2017-01-08] MEDS ORDERED: NURSING VERBAL MED ORDER ONE (19:30)
[2017-01-08 19:42] VITALS: BP 142/92; PULSE 80; TEMP 36.4; O2SAT 96
[2017-01-08] MEDS: OXYCODONE HCL IR 5 MG TAB (IMMEDIATE RELEASE) PO PRN (19:44)
[2017-01-08] MEDS: GABAPENTIN 600MG Q8H DOSE PO SCH (21:07)
[2017-01-08] MEDS: METOPROLOL SUCC 25MG EXT REL TAB PO SCH (21:07)
[2017-01-08] MEDS: POTASSIUM CHLORIDE 20 MEQ TABCR PO SCH (21:08)
[2017-01-09] VITALS (13 sets, daily range): BP systolic 91–134; BP diastolic 62–93; PULSE 56–103; TEMP 36.5–37; O2SAT 93–98
[2017-01-09] MEDS: GABAPENTIN 600MG Q8H DOSE PO SCH ×2 (06:04→14:34)
[2017-01-09] MEDS: METOPROLOL SUCC 25MG EXT REL TAB PO SCH (07:38)
[2017-01-09] MEDS: PANTOprazole SOD 40 MG TAB PO SCH (07:38)
[2017-01-09] MEDS: CHLORDIAZEPOXIDE 10 MG CAP PO SCH ×4 (07:38→22:19)
[2017-01-09] MEDS: POTASSIUM CHLORIDE 20 MEQ TABCR PO SCH ×2 (07:38→20:09)
[2017-01-09] MEDS: AMLODIPINE BESYLATE 5 MG TAB PO SCH (07:38)
[2017-01-09 07:48] LABS: PARTIAL THROMBOPLASTIN RATIO 1.8
[2017-01-09 09:08] LABS: INR 1.2 (0.9-1.1); PROTHROMBIN TIME (PATIENT) 12.7 SECONDS (9.0-12.0)
--- NOTE | 2017-01-09 09:44 | Cardiology Follow-Up ---
Subjective Subjective Date of Service: Jan 09, 2017. Pt evaluation today including: conversation w/ patient, physical exam, chart review, lab review, review of studies, conversation w/ product development consultant, review of inpatient medication list Additional Details: Pt seen and examined, states that he's feeling ok. No active withdrawal overnight. Continues to deny cp, sob, palpitations, lightheadedness or dizziness. Tele reviewed: atrial fibrillation in 's. Problem List Medical Problems: (1) Alcohol intoxication Status: Acute (2) Atrial fibrillation Status: Acute (3) Hypomagnesemia Status: Acute (4) Weakness Status: Acute Review of Systems Respiratory: No see HPI, No cough, No sputum, No wheezing, No shortness of breath, No dyspnea on exertion, No dyspnea at rest, No hemoptysis, No problem reported Cardiac: No see HPI, No chest pain, No orthopnea, No PND, No edema, No claudication, No palpitations, No problem reported Objective Vital Signs Last Vital Signs Documentation Date Time Temp Pulse Resp B/P (MAP) Pulse Ox O2 Delivery O2 Flow Rate FiO2 01/09/17 07:14 36.8 83 17 126/83 (97) 97 Room Air Physical Exam: General Appearance: WD/WN, no apparent distress, + pertinent finding ( intention tremor) Eyes: bilateral eyes normal inspection, bilateral eyes PERRL, bilateral eyes EOMI ENT: normal ENT inspection, hearing grossly normal, pharynx normal Neck: supple, no adenopathy, thyroid normal, no JVD Respiratory/Chest: chest non-tender, lungs clear, normal breath sounds, no respiratory distress, no accessory muscle use Cardiovascular: no edema, no JVD, no murmur, + irregularly irregular Abdomen: normal bowel sounds, non tender, soft, no organomegaly, no pulsatile mass Extremities: normal inspection, no pedal edema, no calf tenderness Neurologic/Psychiatric: dial polisher II-XII nml as tested, no motor/sensory deficits, alert, normal mood/affect, oriented x 3 Skin: normal color, warm/dry, no rash Lymphatic: no adenopathy Assessment and Plan 1. new onset afib heparin and coumadin started, avoiding NOAC due to ongoing alcoholism rates in 100's, will uptitrate metoprolol succinate to 50mg bid goal INR of 2-3 will need heparin until goal INR achieved will follow as an outpatient to determine retirement course of treatment, likely being based on alcohol consumption 2. cardiomyopathy with wall motion abnormalities unclear etiology: cad vs. afib vs. alcoholic cardiomyopathy for cath today 3. alcoholism no sign of withdrawal greater than 48 hours after last drink cont to monitor patient interested in treatment, outpatient vs. inpatient, likely dependent on insurance coverage cont to monitor
[2017-01-09] MEDS ORDERED: METOPROLOL SUCC 25MG EXT REL TAB PO ONE (09:45)
--- NOTE | 2017-01-09 12:21 | Progress Note ---
Subjective Date of Service: Jan 09, 2017. Subjective Pt evaluation today including: conversation w/ patient, physical exam, lab review, review of studies, review of inpatient medication list Saw/examined the patient in room 219 He's doing okay today; no chest pain/palpitations/shortness of breath Eager to quit alcohol intake; willing to take part in outpatient rehab; but states he doesn't need it and has the willpower to stop Problem List Medical Problems: (1) Alcohol intoxication Status: Acute (2) Atrial fibrillation Status: Acute (3) Hypomagnesemia Status: Acute (4) Weakness Status: Acute Review of Systems Constitutional: No fever, No chills, No weakness Respiratory: No shortness of breath Cardiac: No chest pain, No edema, No palpitations Abdomen: No pain, No nausea, No vomiting, No diarrhea Heme: No abnormal bleeding/bruising Medications Current Inpatient Medications Medications (Trade) Dose Ordered Sig/Oliva Route Start Time Stop Time Status Last Admin Dose Admin Acetaminophen (Tylenol Tab) 650 mg Q4H PRN PO 01/07/17 18:15 02/06/17 18:14 01/08/17 16:47 650 MG Ondansetron HCl (Zofran Inj) 4 mg Q6H PRN IV 01/07/17 18:15 02/06/17 18:14 Miscellaneous (Iv Fluids Completed) 1 ea PRN PRN N/A 01/07/17 18:30 01/07/18 18:29 Thiamine HCl (Vitamin B-1 Tab) 100 mg Q24H PO 01/07/17 19:30 02/06/17 19:29 01/08/17 19:20 100 MG Metoprolol Tartrate (Lopressor Iv) 2.5 mg Q6 PRN IV 01/07/17 19:15 02/06/17 19:14 01/08/17 03:51 2.5 MG Alendronate Sodium (Fosamax Tab) 70 mg Mo@0700 PO 01/14/17 07:00 02/13/17 06:59 Amlodipine Besylate (Norvasc Tab) 10 mg DAILY PO 01/08/17 09:00 02/07/17 08:59 01/09/17 07:38 10 MG Chlordiazepoxide (Librium Cap) 10 mg QID PO 01/07/17 21:00 02/06/17 20:59 01/09/17 07:38 10 MG Ranitidine HCl (zANTac TAB) 300 mg HS PRN PO 01/07/17 19:15 02/06/17 19:14 01/08/17 08:42 300 MG Pantoprazole Sodium (Protonix Tab) 40 mg QAM PO 01/08/17 09:00 02/07/17 08:59 01/09/17 07:38 40 MG Gabapentin (Neurontin Tab) 600 mg Q8 PO 01/08/17 22:00 01/09/17 14:01 01/09/17 06:04 600 MG Gabapentin (Neurontin Tab) 600 mg Q12H PO 01/10/17 00:00 01/10/17 12:01 Gabapentin (Neurontin Tab) 600 mg TODAY@1200 PO 01/11/17 12:00 01/11/17 12:01 Heparin Sodium/ Dextrose 500 ml @ 26 mls/hr [id number] PRN IV 01/07/17 21:30 02/06/17 21:29 Future Hold 01/08/17 19:20 26 MLS/HR Warfarin Sodium (Coumadin Tab) 5 mg DAILY@16 PO 01/08/17 16:00 02/07/17 15:59 01/08/17 16:06 5 MG Potassium Chloride (Klor-Con Tab) 20 meq BID PO 01/08/17 21:00 02/07/17 20:59 01/09/17 07:38 20 MEQ Oxycodone HCl (Roxicodone Immediate Rel Tab) 5 mg TID PRN PO 01/08/17 19:45 01/22/17 19:44 01/08/17 19:44 5 MG Metoprolol Succinate (Toprol Xl Tab) 50 mg BID PO 01/09/17 21:00 02/07/17 11:59 Objective Vital Signs Date Time Temp Pulse Resp B/P (MAP) Pulse Ox O2 Delivery O2 Flow Rate FiO2 01/09/17 11:24 36.7 83 17 130/93 (105) 97 Room Air 01/09/17 08:00 Room Air 01/09/17 07:14 36.8 83 17 126/83 (97) 97 Room Air 01/09/17 04:00 Room Air 01/09/17 03:51 36.7 94 18 128/82 (97) 98 Room Air 01/09/17 02:33 36.8 102 18 134/86 96 Room Air 01/09/17 00:00 36.8 102 18 134/86 (102) 96 Room Air 01/08/17 23:59 Room Air 01/08/17 20:00 Room Air 01/08/17 19:42 36.4 80 20 142/92 (109) 96 Room Air 01/08/17 16:14 36.4 97 18 120/91 (101) 100 Room Air 01/08/17 16:00 Room Air Physical Exam General Appearance: no apparent distress, + pertinent finding (tremulousness, slightly anxious) Respiratory/Chest: chest non-tender, lungs clear, normal breath sounds, no respiratory distress, no accessory muscle use Cardiovascular: no edema, no murmur, + tachycardia, + irregularly irregular Abdomen: normal bowel sounds, non tender, soft Extremities: non-tender, normal inspection, no pedal edema Neurologic/Psychiatric: no motor/sensory deficits, alert, + depressed affect ( anxious) Laboratory Results Last 24 Hours Test 01/08/17 18:01 01/09/17 01:40 01/09/17 06:36 01/09/17 06:37 Activated Partial Thromboplast Time 45.7 SECONDS 51.6 SECONDS 47.1 SECONDS Partial Thromboplastin Ratio 1.8 2.0 1.8 Prothrombin Time 12.7 SECONDS Prothromb Time International Ratio 1.2 Assessment and Plan This is a 56 year old male with a PMH of HTN, alcohol abuse, GERD, chronic cervical neck pain, presents with new onset A. Fib discovered incidentally as outpatient New Onset Atrial Fibrillation New onset, continues to be in A. Fib with accelerated rate this was discovered incidentally as outpatient for pre-op for cataract surgery Atenolol changed to Toprol by cardiology and dose is increased today (01/09) currently on IV heparin, bridging to Coumadin concern with alcoholism and bleeding risk - patient assures us that he will not drink again; will need close outpatient monitoring Cardiomyopathy and Wall Motion Abnormalities echo obtained during this admission * Normal LV chamber size and wall thickness. * Mildly reduced LV systolic function, EF 40-45%. * Moderate to severe hypokinesis of the anterior, anterolateral, inferolateral and apical brown. * Moderate left atrial enlargement. * No significant valvular pathology due to the wall motion abnormalities plan is for cardiac cath today to r/o coronary artery disease on 01/09 Alcoholism/Abuse no withdrawal symptoms noted takes Librium at home, Gabapentin protocol started and should continue Thiamine, folic acid, multivitamin check Mg daily social problems specialist consult Chronic Ne[facility] Continue home dose of oxycodone DVT ppx On IV heparin and oral Coumadin FULL CODE
[2017-01-09] MEDS ORDERED: HEPARIN SOD (PORCINE) 1000 UNIT/ML 10 ML VIAL ONE (12:59)
[2017-01-09] MEDS ORDERED: NiCARDipine HCL INJ 2.5 MG/ML 10 ML AMP ONE (12:59)
[2017-01-09] MEDS ORDERED: MIDAZOLAM HCL 1 MG/ML 2ML VIAL ONE (13:00)
[2017-01-09] MEDS ORDERED: FENTANYL CITRATE INJ 50 MCG/1 ML 2 ML VIAL ONE (13:00)
[2017-01-09] MEDS ORDERED: NITROGLYCERIN/D5W 100MCG/ML 20ML SYR ONE (13:00)
--- NOTE | 2017-01-09 13:20 | Procedure Note ---
Pre-Mod Sedation Assessment General Date of Moderate Sedation: Jan 09, 2017. Vital Signs: Vital Signs Past 12 Hours Date Time Temp Pulse Resp B/P (MAP) Pulse Ox O2 Delivery O2 Flow Rate FiO2 01/09/17 12:00 Room Air 01/09/17 11:24 36.7 83 17 130/93 (105) 97 Room Air 01/09/17 08:00 Room Air 01/09/17 07:14 36.8 83 17 126/83 (97) 97 Room Air 01/09/17 04:00 Room Air 01/09/17 03:51 36.7 94 18 128/82 (97) 98 Room Air 01/09/17 02:33 36.8 102 18 134/86 96 Room Air Review Cardiovascular: no gallop, + irregularly irregular Airway Class: II Pre-Sedation Airway Assessment Oral Cavity: Chipped Teeth, WNL Smoking Status: Never Smoker Mallampati Classification: Class III ASA Classification: Class III Procedure Planning Contraindications-for Mod Sed: None Yes Notes The planned sedation has been discussed with the patient and consent obtained. I have identified the patient, determined the appropriateness of sedation and have assessed the patient immediately prior to the procedure. All medicine(s) and interventions are by my order.
[2017-01-09] MEDS ORDERED: SODIUM CHLORIDE 0.9% 1000ML 250 ML IV PRN (14:39)
[2017-01-09] MEDS ORDERED: ACETAMINOPHEN 325 MG TAB PO PRN (14:45)
--- NOTE | 2017-01-09 14:53 | [facility] Post Operative Brief Note ---
Preliminary Procedure Note Procedure Date Jan 09, 2017. Pre-Procedure Diagnosis Cardiomyopathy AUC Score 7 Post-Procedure Diagnosis Mild CAD Procedure(s) Performed Coronary Angiography, Left Heart Cath, LV Angiography Auto [employer] Apprentice Dr. Pieter Simpson Button Buttonhole Marker(s) Elsa Naqvi Estimated Blood Loss <15cc Medication(s) Nicardipine (300mcg intraarterial after radial sheath insertion), Lidocaine 1% ( local infiltration) Preliminary Findings Right dominant coroanry anatomy LM Large caliber with mild irregularities LAD Type 3 with very large first diagonal. MIld atherosclerotic changes mid vessel 20% Ramus Large with mo disease RCA Large dominant with low posterior origin No disease LV diffuse hypokinesis EF 35-40% [id number] Recommendations Medical therapy and/or Counseling Specimens None Fluids (cc crystalloids) 80 Anesthesia Start 13:28 Versed 1mg IV, Fentatnyl 12.5 mcg IV Stop 1405 Procedural Complication(s) None Disposition PCU
[2017-01-09] MEDS: SODIUM CHLORIDE 0.9% 1000ML 1,000 ML IV SCH ×2 (15:00→22:19)
[2017-01-09] MEDS: WARFARIN SOD 5 MG TAB PO SCH (16:04)
[2017-01-09] MEDS: OXYCODONE HCL IR 5 MG TAB (IMMEDIATE RELEASE) PO PRN (16:07)
[2017-01-09] MEDS: THIAMINE HCL 100 MG TAB PO SCH (18:07)
[2017-01-09] MEDS: HEPARIN 25,000 UNIT/500ML D5W 500 ML IV PRN ×2 (19:26→22:38)
[2017-01-09] MEDS: METOPROLOL SUCC 50MG EXT REL TAB PO SCH (20:09)
[2017-01-09 20:57] LABS: PARTIAL THROMBOPLASTIN RATIO 1.5
[2017-01-09] MEDS ORDERED: HEPARIN IV BOLUS 4,500 UNIT in SYRINGE 0 ML IV ONE (22:30)
[2017-01-09] MEDS: GABAPENTIN 600MG Q12H DOSE PO SCH (23:44)
[2017-01-10] VITALS (10 sets, daily range): BP systolic 113–137; BP diastolic 78–90; PULSE 86–111; TEMP 36.5–37.3; O2SAT 95–97
[2017-01-10] MEDS: OXYCODONE HCL IR 5 MG TAB (IMMEDIATE RELEASE) PO PRN ×2 (03:11→21:15)
[2017-01-10 04:32] LABS: HEMATOCRIT 42.5 % (42-52); MEAN CELL VOLUME 95.7 fL (80-100); MEAN CORPUSCULAR HEMOGLOBIN 32.2 pg (25-34); MEAN CORPUSCULAR HGB CONC 33.6 g/dl (32-36); MEAN PLATELET VOLUME 9.5 fL (7.4-10.4); PLATELET COUNT 320 K/uL (130-400); RED BLOOD COUNT 4.44 M/uL (4.7-6.1); WHITE BLOOD COUNT 10.09 K/uL (4.8-10.8)
[2017-01-10 05:07] LABS: INR 1.3 (0.9-1.1); PARTIAL THROMBOPLASTIN RATIO 2.2
[2017-01-10 05:36] LABS: BUN/CREATININE RATIO 7.4 (10-20); CALCIUM 8.7 mg/dl (8.5-10.1); CREATININE 0.96 mg/dl (0.60-1.40); MAGNESIUM 1.9 mg/dl (1.8-2.4); POTASSIUM 4.7 mmol/L (3.5-5.1)
[2017-01-10] MEDS: SODIUM CHLORIDE 0.9% 1000ML 1,000 ML IV SCH (06:30)
[2017-01-10] MEDS: METOPROLOL SUCC 50MG EXT REL TAB PO SCH (07:26)
[2017-01-10] MEDS: PANTOprazole SOD 40 MG TAB PO SCH (07:26)
[2017-01-10] MEDS: POTASSIUM CHLORIDE 20 MEQ TABCR PO SCH ×2 (07:26→21:16)
[2017-01-10] MEDS: FLINTSTONES COMPLETE CHEWABLE TAB PO SCH (07:26)
[2017-01-10] MEDS: CHLORDIAZEPOXIDE 10 MG CAP PO SCH ×4 (07:26→21:15)
[2017-01-10] MEDS: AMLODIPINE BESYLATE 5 MG TAB PO SCH (07:27)
--- NOTE | 2017-01-10 07:39 | CARDIAC CATH REPORT ---
REFERRING: Dr. Victorino Harrison. PRIMARY CARE PHYSICIAN: Dr. Saumya Lala. INDICATIONS: Atrial fibrillation with newly noted diffuse cardiomyopathy. BRIEF CARDIAC HISTORY: The patient is a 56-year-old male, who was found, during a recent procedure, to be in atrial fibrillation by an ill-defined duration. Subsequent inpatient management has demonstrated diffuse LV dysfunction on echocardiogram, EF approximately 40%. In light of new cardiomyopathy, he is referred for diagnostic cardiac catheterization. Currently, patient not manifesting signs of heart failure or angina pectoris, atrial fibrillation rates are coming under control. Pre-catheterization evaluation included an echocardiography. Stress testing was not performed. PROCEDURE: Left heart catheterization, coronary and LV angiography. ACCESS: Right radial artery. CATHETERS: A 6-Indonesian long glide sheath, 5-Indonesian brachial 3.5, 5-Indonesian 3DRC, 5-Indonesian AR1, 5-Indonesian straight pigtail. CONTRAST: Nonionic x165 mL Visipaque. IV FLUIDS: 80 mL normal saline. RADIATION EXPOSURE: 14.6 minutes of fluoroscopy, 2296 milligrays, DAP score 1,6644. SEDATION: Start time 1328, end time 1405. Versed 1 mg IV. Fentanyl 12.5 mcg IV. COMPLICATIONS: None. RESULTS: CORONARY ANGIOGRAPHY: Coronary anatomy is right dominant with large caliber vessels: LEFT MAIN: Left main is large in caliber, modest in length. It trifurcates to give rise to left anterior descending, a moderately large ramus intermedius and the left circumflex. There are minimal irregularities of the distal left main without obstruction. LEFT ANTERIOR DESCENDING: The left anterior descending is type 3 in distribution, gives rise to a large septal branch opposite a large bifurcating diagonal branch in its mid proximal third, then courses to terminate beyond the apex. Within the LAD, beyond the diagonal branch, there is an area of moderate irregularities of 20% or less. There is thinning of the distal vessels, but no obstruction. RAMUS INTERMEDIUS: This is moderately large and free of disease. LEFT CIRCUMFLEX: Left circumflex consists of a large trifurcating obtuse marginal and 2 posterolateral branches that are very thin in caliber along the AV groove. There is no disease other than minor luminal irregularities in the circumflex system. RIGHT CORONARY ARTERY: The right coronary has a low and posterior takeoff, a prominent cedeno's crook and gives rise to a moderate size right ventricular branch in its mid portion, at the AV groove a long posterior descending artery and along the AV groove, 2 posterior ventricular branches, the largest is the most terminal vessel. Within the right coronary, there are mild irregularities and no obstructive disease. LV ANGIOGRAPHY: The left ventricle was nondilated. There is diffuse left ventricular dysfunction, EF 35%-40%. There is no significant mitral insufficiency. HEMODYNAMICS: Initial aortic root pressure was 117/83 with a mean of 99. LV pressure was 114/5 and EDP of 18. Following LV angiography, there is no transaortic valve gradient on pullback. The final aortic root pressure was 122/84 with mean pressure 101. FINAL IMPRESSIONS: 1. Nonischemic cardiomyopathy with diffuse left ventricular dysfunction, EF 35%-40%. 2. Large caliber right-dominant coronary anatomy with [id number] luminal irregularities, most significant 20% within the mid left anterior descending. RECOMMENDATION: Continued medical management.
[2017-01-10] MEDS ORDERED: WARFARIN SOD 5 MG TAB PO ONE (08:51)
--- NOTE | 2017-01-10 08:59 | Cardiology Follow-Up ---
Subjective Subjective Date of Service: Jan 10, 2017. Pt evaluation today including: conversation w/ patient, physical exam, chart review, lab review, review of studies, review of inpatient medication list Additional Details: Pt seen and examined, states that he is feeling well. No complaints, shakiness has resolved, no desire for a drink. Denies cp, sob, palpitations, lightheadedness or dizziness. Tele reviewed: afib, rates in 90's-100's. Problem List Medical Problems: (1) Alcohol intoxication Status: Acute (2) Atrial fibrillation Status: Acute (3) Hypomagnesemia Status: Acute (4) Weakness Status: Acute Review of Systems Constitutional: No fever, No chills, No weakness Respiratory: No shortness of breath Cardiac: No chest pain, No edema, No palpitations Abdomen: No pain, No nausea, No vomiting, No diarrhea Heme: No abnormal bleeding/bruising Objective Vital Signs Last Vital Signs Documentation Date Time Temp Pulse Resp B/P (MAP) Pulse Ox O2 Delivery O2 Flow Rate FiO2 01/10/17 07:31 36.8 86 18 136/90 (105) 96 Room Air Physical Exam: General Appearance: no apparent distress, + pertinent finding (tremulousness, slightly anxious) Eyes: bilateral eyes normal inspection, bilateral eyes PERRL, bilateral eyes EOMI ENT: normal ENT inspection, hearing grossly normal, pharynx normal Neck: supple, no adenopathy, thyroid normal, no JVD Respiratory/Chest: chest non-tender, lungs clear, normal breath sounds, no respiratory distress, no accessory muscle use Cardiovascular: no edema, no murmur, + tachycardia, + irregularly irregular Abdomen: normal bowel sounds, non tender, soft Extremities: non-tender, normal inspection, no pedal edema Neurologic/Psychiatric: no motor/sensory deficits, alert, + depressed affect ( anxious) Skin: normal color, warm/dry, no rash Lymphatic: no adenopathy Assessment and Plan 1. new onset afib heparin and coumadin started, avoiding NOAC due to alcoholism goal INR of 2-3 will need heparin until goal INR achieved will follow as an outpatient to determine termite treater helper course of treatment, likely being based on alcohol consumption will increase metoprolol succinate to 75mg bid 2. cardiomyopathy cardiac cath without obstructive disease likely tachycardia induced, or possibly alcoholic cardiomyopathy will cont BB history of allergy to ROSEANNE, will likely start arb 3. alcoholism no sign of withdrawal greater than 48 hours after last drink cont to monitor patient interested in treatment, outpatient vs. inpatient, likely dependent on insurance coverage cont to monitor
[2017-01-10] MEDS ORDERED: METOPROLOL SUCC 25MG EXT REL TAB PO ONE (09:00)
[2017-01-10] MEDS: GABAPENTIN 600MG Q12H DOSE PO SCH (12:39)
[2017-01-10] MEDS: HEPARIN 25,000 UNIT/500ML D5W 500 ML IV PRN (12:43)
--- NOTE | 2017-01-10 13:27 | Progress Note ---
Subjective Date of Service: Jan 10, 2017. Subjective Pt evaluation today including: conversation w/ patient, physical exam, lab review, review of studies, review of inpatient medication list Saw/examined the patient in room 219 Doing well today; no problem/issues related to his cardiac cath Problem List Medical Problems: (1) Alcohol intoxication Status: Acute (2) Atrial fibrillation Status: Acute (3) Hypomagnesemia Status: Acute (4) Weakness Status: Acute Review of Systems Constitutional: No fever, No chills, No weakness Respiratory: No cough, No sputum, No wheezing, No shortness of breath, No dyspnea on exertion, No dyspnea at rest Cardiac: No chest pain Abdomen: No pain, No nausea, No vomiting, No diarrhea Heme: No abnormal bleeding/bruising Medications Current Inpatient Medications Medications (Trade) Dose Ordered Sig/Oliva Route Start Time Stop Time Status Last Admin Dose Admin Acetaminophen (Tylenol Tab) 650 mg Q4H PRN PO 01/07/17 18:15 02/06/17 18:14 01/08/17 16:47 650 MG Ondansetron HCl (Zofran Inj) 4 mg Q6H PRN IV 01/07/17 18:15 02/06/17 18:14 Miscellaneous (Iv Fluids Completed) 1 ea PRN PRN N/A 01/07/17 18:30 01/07/18 18:29 Thiamine HCl (Vitamin B-1 Tab) 100 mg Q24H PO 01/07/17 19:30 02/06/17 19:29 01/09/17 18:07 100 MG Metoprolol Tartrate (Lopressor Iv) 2.5 mg Q6 PRN IV 01/07/17 19:15 02/06/17 19:14 01/08/17 03:51 2.5 MG Alendronate Sodium (Fosamax Tab) 70 mg Mo@0700 PO 01/14/17 07:00 02/13/17 06:59 Amlodipine Besylate (Norvasc Tab) 10 mg DAILY PO 01/08/17 09:00 02/07/17 08:59 01/10/17 07:27 10 MG Chlordiazepoxide (Librium Cap) 10 mg QID PO 01/07/17 21:00 02/06/17 20:59 01/10/17 12:39 10 MG Ranitidine HCl (zANTac TAB) 300 mg HS PRN PO 01/07/17 19:15 02/06/17 19:14 01/08/17 08:42 300 MG Pantoprazole Sodium (Protonix Tab) 40 mg QAM PO 01/08/17 09:00 02/07/17 08:59 01/10/17 07:26 40 MG Gabapentin (Neurontin Tab) 600 mg TODAY@1200 PO 01/11/17 12:00 01/11/17 12:01 Heparin Sodium/ Dextrose 500 ml @ 29 mls/hr [id number] PRN IV 01/07/17 21:30 02/06/17 21:29 Future hold 01/10/17 12:43 29 MLS/HR Warfarin Sodium (Coumadin Tab) 5 mg DAILY@16 PO 01/08/17 16:00 02/07/17 15:59 01/09/17 16:04 5 MG Potassium Chloride (Klor-Con Tab) 20 meq BID PO 01/08/17 21:00 02/07/17 20:59 01/10/17 07:26 20 MEQ Oxycodone HCl (Roxicodone Immediate Rel Tab) 5 mg TID PRN PO 01/08/17 19:45 01/22/17 19:44 01/10/17 03:11 5 MG Multivitamins (Flintstones Complete Tab) 1 tab QAM PO 01/10/17 09:00 02/09/17 08:59 01/10/17 07:26 1 TAB Folic Acid (Folvite Tab) 1 mg QAM PO 01/10/17 09:00 02/09/17 08:59 01/10/17 07:27 1 MG Sodium Chloride 250 ml @ 999 mls/hr Q16M PRN IV 01/09/17 14:39 02/08/17 14:38 Metoprolol Succinate (Toprol Xl Tab) 75 mg BID PO 01/10/17 21:00 02/07/17 20:59 Objective Vital Signs Date Time Temp Pulse Resp B/P (MAP) Pulse Ox O2 Delivery O2 Flow Rate FiO2 01/10/17 12:00 96 Room Air 01/10/17 11:24 36.8 93 22 137/84 (101) 97 Room Air 01/10/17 08:00 96 Room Air 01/10/17 07:31 36.8 86 18 136/90 (105) 96 Room Air 01/10/17 04:11 36.9 98 22 116/78 (91) 96 Room Air 01/10/17 04:00 Room Air 01/10/17 00:00 Room Air 01/09/17 23:32 37.0 100 20 117/76 (90) 95 Room Air 01/09/17 20:00 Room Air 01/09/17 19:16 36.8 98 18 113/63 (80) 94 Room Air 01/09/17 16:15 36.5 74 20 91/62 (72) 96 Room Air 01/09/17 16:00 Room Air 01/09/17 15:55 113/63 (80) 01/09/17 15:25 56 109/65 (80) 01/09/17 15:10 89 18 111/79 (90) 01/09/17 14:55 103 116/88 (97) 93 01/09/17 14:32 102 18 111/78 (89) 94 01/09/17 14:05 117 16 127/102 (110) 99 Room Air Physical Exam General Appearance: no apparent distress, + pertinent finding (+tremulousness) Respiratory/Chest: chest non-tender, lungs clear, normal breath sounds, no respiratory distress, no accessory muscle use Cardiovascular: no edema, no gallop, no JVD, no murmur, + irregularly irregular Abdomen: normal bowel sounds, non tender, soft Extremities: normal range of motion, non-tender, normal inspection, no pedal edema, no calf tenderness Neurologic/Psychiatric: rn cvor II-XII nml as tested, no motor/sensory deficits, alert, normal mood/affect, oriented x 3 Skin: normal color Lymphatic: no adenopathy Laboratory Results Last 24 Hours Test 01/09/17 20:32 01/10/17 04:15 Activated Partial Thromboplast Time 39.1 SECONDS 56.0 SECONDS Partial Thromboplastin Ratio 1.5 2.2 White Blood Count 10.09 K/uL Red Blood Count 4.44 M/uL Hemoglobin 14.3 g/dL Hematocrit 42.5 % Mean Corpuscular Volume 95.7 fL Mean Corpuscular Hemoglobin 32.2 pg Mean Corpuscular Hemoglobin Concent 33.6 g/dl RDW Standard Deviation 47.6 fL RDW Coefficient of Variation 13.7 % Platelet Count 320 K/uL Mean Platelet Volume 9.5 fL Prothrombin Time 14.0 SECONDS Prothromb Time International Ratio 1.3 Sodium Level 142 mmol/L Potassium Level 4.7 mmol/L Chloride Level 109 mmol/L Carbon Dioxide Level 28 mmol/L Anion Gap 5.0 mmol/L Blood Urea Nitrogen 7 mg/dl Creatinine 0.96 mg/dl Est Creatinine Clear Calc Drug Dose 98.0 ml/min Estimated GFR () 102.7 Estimated GFR (Non- 88.6 BUN/Creatinine Ratio 7.4 Random Glucose 101 mg/dl Calcium Level 8.7 mg/dl Magnesium Level 1.9 mg/dl Chemistry Specimen Hemolysis Assessment and Plan This is a 56 year old male with a PMH of HTN, alcohol abuse, GERD, chronic cervical neck pain, presents with new onset A. Fib discovered incidentally as outpatient New Onset Atrial Fibrillation New onset, continues to be in A. Fib with accelerated rate this was discovered incidentally as outpatient for pre-op for cataract surgery Atenolol changed to Toprol by cardiology - Toprol dose increased to 75mg BID () currently on IV heparin, bridging to Coumadin concern with alcoholism and bleeding risk - patient assures us that he will not drink again; will need close outpatient monitoring Cardiomyopathy and Wall Motion Abnormalities echo obtained during this admission * Normal LV chamber size and wall thickness. * Mildly reduced LV systolic function, EF 40-45%. * Moderate to severe hypokinesis of the anterior, anterolateral, inferolateral and apical brown. * Moderate left atrial enlargement. * No significant valvular pathology due to the wall motion abnormalities plan is for cardiac cath on 01/09 - no acute coronary findings Alcoholism/Abuse no withdrawal symptoms noted takes Librium at home, Gabapentin protocol started and should continue Thiamine, folic acid, multivitamin check Mg daily social services designee consult Chronic Ne[facility] Continue home dose of oxycodone DVT ppx On IV heparin and oral Coumadin FULL CODE
[2017-01-10 15:57] LABS: HYDROXYETHYLFLURAZEPAM CONF NEGATIVE NG/ML (CUTOFF=50); HYDROXYMIDAZOLAM NEGATIVE NG/ML (CUTOFF=50); HYDROXYTRIAZOLAM CONF NEGATIVE NG/ML (CUTOFF=50); TEMAZEPAM CONF NEGATIVE NG/ML (CUTOFF=50)
[2017-01-10] MEDS: WARFARIN SOD 5 MG TAB PO SCH (16:05)
[2017-01-10] MEDS: THIAMINE HCL 100 MG TAB PO SCH (18:53)
[2017-01-10] MEDS ORDERED: METOPROLOL SUCC 50MG EXT REL TAB PO SCH (21:00)
[2017-01-11] MEDS: OXYCODONE HCL IR 5 MG TAB (IMMEDIATE RELEASE) PO PRN (03:55)
[2017-01-11 04:29] VITALS: BP 136/94; PULSE 94; TEMP 36.8; O2SAT 96
[2017-01-11] MEDS: HEPARIN 25,000 UNIT/500ML D5W 500 ML IV PRN (04:47)
[2017-01-11 06:41] LABS: HEMATOCRIT 44.7 % (42-52); MEAN CELL VOLUME 95.5 fL (80-100); MEAN CORPUSCULAR HEMOGLOBIN 32.7 pg (25-34); MEAN CORPUSCULAR HGB CONC 34.2 g/dl (32-36); MEAN PLATELET VOLUME 9.9 fL (7.4-10.4); PLATELET COUNT 306 K/uL (130-400); RED BLOOD COUNT 4.68 M/uL (4.7-6.1); WHITE BLOOD COUNT 9.86 K/uL (4.8-10.8)
[2017-01-11 06:59] LABS: INR 3.7 (0.9-1.1); PARTIAL THROMBOPLASTIN RATIO 2.6; PROTHROMBIN TIME (PATIENT) 42.3 SECONDS (9.0-12.0)
[2017-01-11 07:09] LABS: CALCIUM 9.5 mg/dl (8.5-10.1); POTASSIUM 4.9 mmol/L (3.5-5.1)
[2017-01-11 07:37] VITALS: BP 121/87; PULSE 109; TEMP 36.8; O2SAT 96
--- NOTE | 2017-01-11 08:46 | Cardiology Follow-Up ---
Subjective Subjective Date of Service: Jan 11, 2017. Pt evaluation today including: conversation w/ patient, physical exam, chart review, lab review, review of studies, review of inpatient medication list Additional Details: Pt seen and examined, states that he's feeling well except for shoulder discomfort at the site of previous fracture (patient missed ortho follow up appt with [facility] since being admitted). Denies cp, sob, palpitations, lightheadedness or dizziness. Tele reviewed: afib in100's-120's. Problem List Medical Problems: (1) Alcohol intoxication Status: Acute (2) Atrial fibrillation Status: Acute (3) Hypomagnesemia Status: Acute (4) Weakness Status: Acute Review of Systems Constitutional: No fever, No chills, No weakness Respiratory: No cough, No sputum, No wheezing, No shortness of breath, No dyspnea on exertion, No dyspnea at rest Cardiac: No chest pain Abdomen: No pain, No nausea, No vomiting, No diarrhea Heme: No abnormal bleeding/bruising Objective Vital Signs Last Vital Signs Documentation Date Time Temp Pulse Resp B/P (MAP) Pulse Ox O2 Delivery O2 Flow Rate FiO2 01/11/17 07:37 36.8 109 20 121/87 (98) 96 Room Air Physical Exam: General Appearance: WD/WN, no apparent distress Eyes: bilateral eyes normal inspection, bilateral eyes PERRL, bilateral eyes EOMI ENT: normal ENT inspection, hearing grossly normal, pharynx normal Neck: supple, no adenopathy, thyroid normal, no JVD Respiratory/Chest: chest non-tender, lungs clear, normal breath sounds, no respiratory distress, no accessory muscle use Cardiovascular: no edema, no gallop, no JVD, no murmur, + irregularly irregular Abdomen: normal bowel sounds, non tender, soft Extremities: normal range of motion, non-tender, normal inspection, no pedal edema, no calf tenderness Neurologic/Psychiatric: 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 new onset afib INR jumped from 1.3 to 3.7, unclear as to cause received 3 doses of coumadin hold today's dose and follow will follow as an outpatient to determine intermediate manager course of treatment, likely being based on alcohol consumption will increase metoprolol succinate to 100mg bid may also add po cardizem later today if no improvement 2. cardiomyopathy cardiac cath without obstructive disease likely tachycardia induced, or possibly alcoholic cardiomyopathy will cont BB history of allergy to ROSEANNE, will likely start arb once rates controlled 3. alcoholism no sign of withdrawal greater than 48 hours after last drink cont to monitor patient interested in treatment, outpatient vs. inpatient, likely dependent on insurance coverage 4. humerus fracture spoke with ortho, will repeat shoulder x-ray and the will review appreciate input cont to monitor
[2017-01-11] MEDS ORDERED: METOPROLOL SUCC 50MG EXT REL TAB PO SCH (09:00)
[2017-01-11] MEDS ORDERED: NURSING VERBAL MED ORDER ONE (09:15)
[2017-01-11] MEDS: AMLODIPINE BESYLATE 5 MG TAB PO SCH (09:30)
[2017-01-11] MEDS: FLINTSTONES COMPLETE CHEWABLE TAB PO SCH (09:31)
[2017-01-11] MEDS: PANTOprazole SOD 40 MG TAB PO SCH (09:31)
[2017-01-11] MEDS: POTASSIUM CHLORIDE 20 MEQ TABCR PO SCH ×2 (09:31→20:45)
[2017-01-11] MEDS: CHLORDIAZEPOXIDE 10 MG CAP PO SCH ×4 (09:33→21:15)
--- NOTE | 2017-01-11 11:02 | DIAGNOSTIC IMAGING REPORT ---
LEFT SHOULDER 3 VIEWS CLINICAL HISTORY: Humeral fracture. FINDINGS: 3 portable views of the left shoulder are obtained. No prior studies are available for comparison at the time of dictation. The Skeletal structures are osteopenic. There is a minimally distracted fracture through the greater tuberosity of the humeral head. Mild overlying soft tissue edema is noted. Fracture does not extend through the humeral neck. Productive degenerative change is noted at the acromioclavicular joint. The glenohumeral articulation is preserved. The partially imaged left lung parenchyma appears clear. Suture material seen at the left apex. IMPRESSION: There is a minimally distracted fracture through the greater tuberosity of the left humeral head. Electronically signed by: Gee Suh M.D. 01/11/2017 11:01 AM Dictated Date/Time: 01/11/2017 10:59 AM
[2017-01-11 11:08] VITALS: BP 141/101; PULSE 111; TEMP 36.8; O2SAT 96
--- NOTE | 2017-01-11 11:18 | Progress Note ---
Subjective Date of Service: Jan 11, 2017. Subjective Pt evaluation today including: conversation w/ patient, physical exam, lab review, review of studies, review of inpatient medication list Saw/examined the patient in room 219 doing well today; no chest pain/palpitations/shortness of breath Feeling fine, eating well has some L shoulder pain Problem List Medical Problems: (1) Alcohol intoxication Status: Acute (2) Atrial fibrillation Status: Acute (3) Hypomagnesemia Status: Acute (4) Weakness Status: Acute Review of Systems Constitutional: No fever, No chills, No weakness Respiratory: No shortness of breath Cardiac: No chest pain, No edema, No palpitations Abdomen: No pain, No nausea, No vomiting, No diarrhea Musculoskeletal: + joint pain (L shoulder) Medications Current Inpatient Medications Medications (Trade) Dose Ordered Sig/Oliva Route Start Time Stop Time Status Last Admin Dose Admin Acetaminophen (Tylenol Tab) 650 mg Q4H PRN PO 01/07/17 18:15 02/06/17 18:14 01/08/17 16:47 650 MG Ondansetron HCl (Zofran Inj) 4 mg Q6H PRN IV 01/07/17 18:15 02/06/17 18:14 Miscellaneous (Iv Fluids Completed) 1 ea PRN PRN N/A 01/07/17 18:30 01/07/18 18:29 Thiamine HCl (Vitamin B-1 Tab) 100 mg Q24H PO 01/07/17 19:30 02/06/17 19:29 01/10/17 18:53 100 MG Metoprolol Tartrate (Lopressor Iv) 2.5 mg Q6 PRN IV 01/07/17 19:15 02/06/17 19:14 01/08/17 03:51 2.5 MG Alendronate Sodium (Fosamax Tab) 70 mg Mo@0700 PO 01/14/17 07:00 02/13/17 06:59 Amlodipine Besylate (Norvasc Tab) 10 mg DAILY PO 01/08/17 09:00 02/07/17 08:59 01/11/17 09:30 10 MG Chlordiazepoxide (Librium Cap) 10 mg QID PO 01/07/17 21:00 02/06/17 20:59 01/11/17 09:33 10 MG Ranitidine HCl (zANTac TAB) 300 mg HS PRN PO 01/07/17 19:15 02/06/17 19:14 01/08/17 08:42 300 MG Pantoprazole Sodium (Protonix Tab) 40 mg QAM PO 01/08/17 09:00 02/07/17 08:59 01/11/17 09:31 40 MG Gabapentin (Neurontin Tab) 600 mg TODAY@1200 PO 01/11/17 12:00 01/11/17 12:01 Warfarin Sodium (Coumadin Tab) 5 mg DAILY@16 PO 01/08/17 16:00 02/07/17 15:59 Future Hold 01/10/17 16:05 5 MG Potassium Chloride (Klor-Con Tab) 20 meq BID PO 01/08/17 21:00 02/07/17 20:59 01/11/17 09:31 20 MEQ Oxycodone HCl (Roxicodone Immediate Rel Tab) 5 mg TID PRN PO 01/08/17 19:45 01/22/17 19:44 01/11/17 03:55 5 MG Multivitamins (Flintstones Complete Tab) 1 tab QAM PO 01/10/17 09:00 02/09/17 08:59 01/11/17 09:31 1 TAB Folic Acid (Folvite Tab) 1 mg QAM PO 01/10/17 09:00 02/09/17 08:59 01/11/17 09:31 1 MG Sodium Chloride 250 ml @ 999 mls/hr Q16M PRN IV 01/09/17 14:39 02/08/17 14:38 Metoprolol Succinate (Toprol Xl Tab) 100 mg BID PO 01/11/17 09:00 02/07/17 20:59 01/11/17 09:30 100 MG Objective Vital Signs Date Time Temp Pulse Resp B/P (MAP) Pulse Ox O2 Delivery O2 Flow Rate FiO2 01/11/17 08:00 Room Air 01/11/17 07:37 36.8 109 20 121/87 (98) 96 Room Air 01/11/17 04:29 36.8 94 22 136/94 (108) 96 Room Air 01/11/17 04:00 Room Air 01/10/17 23:59 96 Room Air 01/10/17 23:41 37.3 105 20 122/82 (95) 95 Room Air 01/10/17 20:00 Room Air 01/10/17 19:54 36.7 111 20 113/89 (97) 96 Room Air 01/10/17 16:28 36.5 95 18 127/79 (95) 97 Room Air 01/10/17 16:27 36.5 95 20 127/79 (95) 97 Room Air 01/10/17 16:00 Room Air 01/10/17 12:00 96 Room Air 01/10/17 11:24 36.8 93 22 137/84 (101) 97 Room Air Physical Exam General Appearance: no apparent distress Respiratory/Chest: chest non-tender, lungs clear, normal breath sounds, no respiratory distress, no accessory muscle use Cardiovascular: no edema, no murmur, + irregularly irregular Abdomen: normal bowel sounds, non tender, soft Extremities: normal inspection, no pedal edema, + pertinent finding (painful ROM of the LUE) Laboratory Results Last 24 Hours Test 01/11/17 06:19 White Blood Count 9.86 K/uL Red Blood Count 4.68 M/uL Hemoglobin 15.3 g/dL Hematocrit 44.7 % Mean Corpuscular Volume 95.5 fL Mean Corpuscular Hemoglobin 32.7 pg Mean Corpuscular Hemoglobin Concent 34.2 g/dl RDW Standard Deviation 48.1 fL RDW Coefficient of Variation 13.8 % Platelet Count 306 K/uL Mean Platelet Volume 9.9 fL Prothrombin Time 42.3 SECONDS Prothromb Time International Ratio 3.7 Activated Partial Thromboplast Time 67.9 SECONDS Partial Thromboplastin Ratio 2.6 Sodium Level 138 mmol/L Potassium Level 4.9 mmol/L Chloride Level 103 mmol/L Carbon Dioxide Level 28 mmol/L Anion Gap 7.0 mmol/L Blood Urea Nitrogen 8 mg/dl Creatinine 1.00 mg/dl Est Creatinine Clear Calc Drug Dose 94.8 ml/min Estimated GFR () 97.8 Estimated GFR (Non- 84.4 BUN/Creatinine Ratio 8.0 Random Glucose 97 mg/dl Calcium Level 9.5 mg/dl Magnesium Level 2.0 mg/dl Assessment and Plan This is a 56 year old male with a PMH of HTN, alcohol abuse, GERD, chronic cervical neck pain, presents with new onset A. Fib discovered incidentally as outpatient New Onset Atrial Fibrillation 01/11 appreciate cardiology input HRs still elevated, Toprol increased to 100mg BID INR jumped to >3 stopped IV heparin hold Coumadin for today, recheck INR in AM 01/10 New onset, continues to be in A. Fib with accelerated rate this was discovered incidentally as outpatient for pre-op for cataract surgery Atenolol changed to Toprol by cardiology - Toprol dose increased to 75mg BID () currently on IV heparin, bridging to Coumadin concern with alcoholism and bleeding risk - patient assures us that he will not drink again; will need close outpatient monitoring Cardiomyopathy and Wall Motion Abnormalities echo obtained during this admission * Normal LV chamber size and wall thickness. * Mildly reduced LV systolic function, EF 40-45%. * Moderate to severe hypokinesis of the anterior, anterolateral, inferolateral and apical brown. * Moderate left atrial enlargement. * No significant valvular pathology due to the wall motion abnormalities plan is for cardiac cath on 01/09 - no acute coronary findings Alcoholism/Abuse no withdrawal symptoms noted takes Librium at home, Gabapentin protocol started and should continue Thiamine, folic acid, multivitamin check Mg daily psychiatric social worker supervisor consult Chronic Ne[facility] pain [facility] Continue home dose of oxycodone DVT ppx On IV heparin and oral Coumadin FULL CODE
[2017-01-11] MEDS ORDERED: GABAPENTIN 600MG X1 DOSE PO SCH (12:00)
[2017-01-11] MEDS ORDERED: DILTIAZEM HCL 180 MG CAPCR PO ONE (13:00)
[2017-01-11 15:42] VITALS: BP 110/77; PULSE 82; TEMP 36.6; O2SAT 96
[2017-01-11 19:11] VITALS: BP 105/65; PULSE 60; PULSE 93; TEMP 36.8; O2SAT 96
[2017-01-11] MEDS: THIAMINE HCL 100 MG TAB PO SCH (20:43)
[2017-01-11 23:13] VITALS: BP 116/77; PULSE 72; TEMP 36.8; O2SAT 97
[2017-01-12] VITALS (8 sets, daily range): BP systolic 100–147; BP diastolic 65–105; PULSE 78–112; TEMP 36.6–37.2; O2SAT 96–98
[2017-01-12 06:51] LABS: HEMATOCRIT 46.4 % (42-52); MEAN CELL VOLUME 94.3 fL (80-100); MEAN CORPUSCULAR HEMOGLOBIN 32.1 pg (25-34); MEAN CORPUSCULAR HGB CONC 34.1 g/dl (32-36); MEAN PLATELET VOLUME 9.7 fL (7.4-10.4); PLATELET COUNT 312 K/uL (130-400); RED BLOOD COUNT 4.92 M/uL (4.7-6.1)
[2017-01-12 07:02] LABS: INR 2.5 (0.9-1.1); PARTIAL THROMBOPLASTIN RATIO 1.4; PROTHROMBIN TIME (PATIENT) 28.2 SECONDS (9.0-12.0)
[2017-01-12 07:29] LABS: BUN/CREATININE RATIO 11.3 (10-20); CALCIUM 9.7 mg/dl (8.5-10.1); CREATININE 0.9 mg/dl (0.60-1.40); MAGNESIUM 2.1 mg/dl (1.8-2.4)
[2017-01-12] MEDS: FLINTSTONES COMPLETE CHEWABLE TAB PO SCH (08:08)
[2017-01-12] MEDS: POTASSIUM CHLORIDE 20 MEQ TABCR PO SCH ×2 (08:09→21:15)
[2017-01-12] MEDS: PANTOprazole SOD 40 MG TAB PO SCH (08:09)
[2017-01-12] MEDS: CHLORDIAZEPOXIDE 10 MG CAP PO SCH ×4 (08:11→21:14)
[2017-01-12] MEDS ORDERED: DILTIAZEM HCL 180 MG CAPCR PO SCH (09:00)
--- NOTE | 2017-01-12 11:12 | Progress Note ---
Internal Med Progress Note Date of Service: Jan 12, 2017. Provider Documentation: SUBJECTIVE: remains in rapid afib HR between 120-130's pt denies of any symptom of chest pain , SOB or palpitation says he never had any symptoms since admission upset that he may not be able to be discharged home today as HR is still elevated wants to know if he can take medication and go home and see doctor in Clinic pt is counselled -even medication is adjusted , he will need continued cardiac monitoring for at least 24 hrs to make sure Drugs are effective and HR is remains stable OBJECTIVE: Vital Signs-as noted below Exam: General-no sign of distress Eyes-sclera non icteric Lungs-CTA Heart-irregular , rapid , no lower ext edema , no JVD Abdomen-soft, non tender Extremities-no rash or deformity Neuro-AAO X3 no focal deficit Lab data as noted below. ASSESSMENT & PLAN: This is a 56 year old male with a PMH of HTN, alcohol abuse, GERD, chronic cervical neck pain, presents with new onset A. Fib discovered incidentally as outpatient New Onset Atrial Fibrillation still in rapid afib cont Tele monitor -pt denies of any symptoms On Cardizem 180mg PO daily will adjust PRN IV Lopressor 5 mg Q6 hr HR > 100 INR therapeutic will defer Cardiology recommendation for further adjustment of antiarrhythmics given hx of alcoholism -concern for fall while intoxicated /bleeding risk - patient assures us that he will not drink again; will need close outpatient monitoring Cardiomyopathy and Wall Motion Abnormalities -non ischemic cardiomyopathy -possible alcohol induced ? echo obtained during this admission * Normal LV chamber size and wall thickness. * Mildly reduced LV systolic function, EF 40-45%. * Moderate to severe hypokinesis of the anterior, anterolateral, inferolateral and apical brown. * Moderate left atrial enlargement. * No significant valvular pathology S/P cardiac cath on 01/09 - minimum coronary artery disease Alcoholism/Abuse no withdrawal symptoms noted takes Librium at home, Gabapentin protocol started and should continue Thiamine, folic acid, multivitamin healthcare social worker consult Coagulopathy : Had rapid climb of INR possibly due to hx of chronic alcohol abuse /alcoholic liver disease Coumadin has been on Hold as INR been elevated Coumadin can be resumed lower dose 1 -1.5 mg daily as INR < 2 will need close follow up at [facility] LEFT SHOULDER FX : IMPRESSION: There is a minimally distracted fracture through the greater tuberosity of the left humeral head. Follows with [facility]; Ortho eval requested , pt missed out pt follow ups Continue home dose of oxycodone DVT ppx INR therapeutic Coumadin on hold FULL CODE DISPOSITION expected to be discharged home when medically stable Medicine follow up with Dr Lala Will need Cardiology follow up will benefit form Alcohol rehab as out pt Vital Signs: Date Time Temp Pulse Resp B/P (MAP) Pulse Ox O2 Delivery O2 Flow Rate FiO2 01/12/17 08:01 96 Room Air 01/12/17 07:32 36.6 84 96 138/90 (106) 96 Room Air 01/12/17 04:00 Room Air 01/12/17 02:58 36.8 83 19 100/65 (77) 98 Room Air 01/12/17 00:01 Room Air 01/11/17 23:13 36.8 72 18 116/77 (90) 97 Room Air 01/11/17 20:00 Room Air 01/11/17 19:11 36.8 60 19 105/65 (78) 96 Room Air 01/11/17 16:00 Room Air 01/11/17 15:42 36.6 82 20 110/77 (88) 96 Room Air 01/11/17 12:00 Room Air Lab Results: Results Past 24 Hours Test 01/12/17 06:23 Range/Units White Blood Count 9.00 4.8-10.8 K/uL Red Blood Count 4.92 4.7-6.1 M/uL Hemoglobin 15.8 14.0-18.0 g/dL Hematocrit 46.4 42-52 % Mean Corpuscular Volume 94.3 80-100 fL Mean Corpuscular Hemoglobin 32.1 25-34 pg Mean Corpuscular Hemoglobin Concent 34.1 32-36 g/dl RDW Standard Deviation 46.7 36.4-46.3 fL RDW Coefficient of Variation 13.6 11.5-14.5 % Platelet Count 312 130-400 K/uL Mean Platelet Volume 9.7 7.4-10.4 fL Prothrombin Time 28.2 9.0-12.0 SECONDS Prothromb Time International Ratio 2.5 0.9-1.1 Activated Partial Thromboplast Time 37.3 21.0-31.0 SECONDS Partial Thromboplastin Ratio 1.4 Sodium Level 139 136-145 mmol/L Potassium Level 4.0 3.5-5.1 mmol/L Chloride Level 104 98-107 mmol/L Carbon Dioxide Level 26 21-32 mmol/L Anion Gap 9.0 3-11 mmol/L Blood Urea Nitrogen 10 7-18 mg/dl Creatinine 0.90 0.60-1.40 mg/dl Est Creatinine Clear Calc Drug Dose 103.6 ml/min Estimated GFR () 111.0 Estimated GFR (Non- 95.8 BUN/Creatinine Ratio 11.3 10-20 Random Glucose 103 70-99 mg/dl Calcium Level 9.7 8.5-10.1 mg/dl Magnesium Level 2.1 1.8-2.4 mg/dl
[2017-01-12] MEDS ORDERED: METOPROLOL TARTRATE 1 MG/ML VIAL IV PRN (12:00)
--- NOTE | 2017-01-12 12:25 | Cardiology Follow-Up ---
Subjective General Date of Service: Jan 12, 2017. Chief Complaint: follow-up atrial fibrillation, nonischemic cardiomyopathy Pt evaluation today including: conversation w/ patient, physical exam History of Present Illness The patient is a 56 year old male seen in cardiology follow-up. The patient was admitted with atrial fibrillation with rapid ventricular rate which had been found as a incidental finding when he presented for recent cataract surgery. On an outpatient EKG performed at Dr. Lala's office earlier this week he was found to be in atrial fibrillation 110 bpm. During his hospital stay, atenolol has been discontinued in favor of metoprolol succinate 100 mg twice a day. His ventricular rates remained above goal yesterday and therefore long-acting diltiazem was added. Last evening 01/11/17 at 1750 the patient was noted to have atrial fibrillation with slow ventricular rate down to 47 bpm prompting his metoprolol succinate to of been held last night and again this morning. He received diltiazem this morning. On telemetry this morning his ventricular rates were as high as 145 bpm and 11:46 AM. Most recently 3 down to 110 bpm. The patient is eager for discharge. He denies any subjective palpitations or subjective shortness of breath. He was found to have left ventricular systolic dysfunction with an ejection fraction of 40-45% range this admission. There was concern of regional wall motion after maladies and therefore he underwent coronary angiography which revealed very mild nonobstructive coronary disease and therefore it was felt that there is a nonischemic etiology to his cardiomyopathy. Allergies Coded Allergies: Naltrexone (Verified Allergy, Unknown, Hallucinations, 01/05/17) ROSEANNE Inhibitors (Verified Adverse Reaction, Intermediate, Cough, 06/06/13) Social History Smoking Status: Never Smoker Hx Tobacco Use In Past Year?: No Hx Alcohol Use - Type And Amou: Yes (beer 8-10 cans/day) Hx Substance Use - Type And Am: Yes Problem List Medical Problems: (1) Alcohol intoxication Status: Acute (2) Atrial fibrillation Status: Acute (3) Hypomagnesemia Status: Acute (4) Weakness Status: Acute Physical Exam Vital Signs Last Vital Signs Documentation Date Time Temp Pulse Resp B/P (MAP) Pulse Ox O2 Delivery O2 Flow Rate FiO2 01/12/17 11:39 37.2 112 20 138/100 (113) 97 Room Air 147/105 (119) Physical Exam Constitutional: Level of Distress: NAD Neck: supple Lungs: Auscultation: no wheezing, no rales/crackles Cardiovascular: Heart Auscultation: no murmurs, tachycardia, irregular rate rhythm Extremities: no edema Neurologic: Gait & Station: pertinent finding (no focal neurologic deficits) Assessment and Plan Assessment and Plan Last Resulted 01/12/17 06:23 Last Resulted 01/12/17 06:23 Past 24 Hours Test 01/12/17 06:23 Range/Units Prothromb Time International Ratio 2.5 H 0.9-1.1 Prothrombin Time 28.2 H 9.0-12.0 SECONDS Impression: 56-year-old male 1. Newly recognized atrial fibrillation, chronicity unknown 2. Nonischemic cardiomyopathy, mild left ventricular systolic dysfunction, compensated from a heart failure standpoint, etiologies include alcohol-related cardiomyopathy, tachycardia induced cardiomyopathy in the setting of atrial fibrillation with rapid ventricular rate of unknown chronicity, also he has a history of biopsy-proven sarcoid lung disease, and of course sarcoidosis is associated with conduction system disease. 3. Alcoholism, no withdrawal receiving Librium. Patient interested in alcohol cessation. Recommendations: 1. Resume metoprolol succinate 100 mg by mouth twice a day 2. Given atrial fibrillation with rapid ventricular rate interventricular systolic dysfunction, and digoxin, start with IV loading and then converted to oral. 3. Discontinue diltiazem for now as he had bradycardia shortly after receiving a combination of diltiazem and metoprolol succinate. Ideally would like to avoid calcium channel blockers given his systolic dysfunction, but given the need for rate control with suspicion of tachycardia induced cardiomyopathy, perhaps add diltiazem tach with short acting formulation necessary from heart rate control standpoint a combination of metoprolol and digoxin procedure be insufficient. 4. Continue Coumadin, check daily INR. Patient eager for discharge, But after discussion regarding trying to accomplish by further hospital stay he was agreeable to further hospitalization. I counseled him that I felt he needed more time for adequate titration of his heart rate control medications under telemetry observation. I offered that he was treated with hospital but that he would have to be AGAINST MEDICAL ADVICE if it was to occur today. Laboratory Results Last 24 Hours Test 01/12/17 06:23 White Blood Count 9.00 K/uL Red Blood Count 4.92 M/uL Hemoglobin 15.8 g/dL Hematocrit 46.4 % Mean Corpuscular Volume 94.3 fL Mean Corpuscular Hemoglobin 32.1 pg Mean Corpuscular Hemoglobin Concent 34.1 g/dl RDW Standard Deviation 46.7 fL RDW Coefficient of Variation 13.6 % Platelet Count 312 K/uL Mean Platelet Volume 9.7 fL Prothrombin Time 28.2 SECONDS Prothromb Time International Ratio 2.5 Activated Partial Thromboplast Time 37.3 SECONDS Partial Thromboplastin Ratio 1.4 Sodium Level 139 mmol/L Potassium Level 4.0 mmol/L Chloride Level 104 mmol/L Carbon Dioxide Level 26 mmol/L Anion Gap 9.0 mmol/L Blood Urea Nitrogen 10 mg/dl Creatinine 0.90 mg/dl Est Creatinine Clear Calc Drug Dose 103.6 ml/min Estimated GFR () 111.0 Estimated GFR (Non- 95.8 BUN/Creatinine Ratio 11.3 Random Glucose 103 mg/dl Calcium Level 9.7 mg/dl Magnesium Level 2.1 mg/dl
[2017-01-12] MEDS ORDERED: DIGOXIN IV 125 MCG in SYRINGE 9.5 ML IV ONE (13:00)
[2017-01-12] MEDS ORDERED: METOPROLOL SUCC 50MG EXT REL TAB PO ONE (13:00)
[2017-01-12] MEDS ORDERED: WARFARIN SOD 1 MG TAB PO SCH (16:00)
[2017-01-12] MEDS: THIAMINE HCL 100 MG TAB PO SCH (19:14)
[2017-01-12] MEDS ORDERED: METOPROLOL SUCC 50MG EXT REL TAB PO SCH (21:00)
[2017-01-12] MEDS: OXYCODONE HCL IR 5 MG TAB (IMMEDIATE RELEASE) PO PRN (21:14)
[2017-01-13] VITALS (7 sets, daily range): BP systolic 117–137; BP diastolic 75–89; PULSE 58–74; TEMP 36.4–37.2; O2SAT 95–97
[2017-01-13 07:13] LABS: INR 1.9 (0.9-1.1); PROTHROMBIN TIME (PATIENT) 21.1 SECONDS (9.0-12.0)
[2017-01-13 07:47] LABS: BUN/CREATININE RATIO 13.1 (10-20); CREATININE 0.85 mg/dl (0.60-1.40)
[2017-01-13 07:50] LABS: CHOLESTEROL/HDL RATIO 3.3
[2017-01-13 07:59] LABS: CALCIUM 9.5 mg/dl (8.5-10.1)
[2017-01-13] MEDS: PANTOprazole SOD 40 MG TAB PO SCH (08:31)
[2017-01-13] MEDS: POTASSIUM CHLORIDE 20 MEQ TABCR PO SCH (08:31)
[2017-01-13] MEDS: FLINTSTONES COMPLETE CHEWABLE TAB PO SCH (08:31)
[2017-01-13] MEDS: CHLORDIAZEPOXIDE 10 MG CAP PO SCH ×2 (08:33→12:55)
[2017-01-13] MEDS ORDERED: WARFARIN SOD 2.5 MG TAB PO ONE (09:17)
[2017-01-13] MEDS ORDERED: METOPROLOL TARTRATE 100 MG TAB PO ONE (10:01)
--- NOTE | 2017-01-13 10:14 | Cardiology Follow-Up ---
Subjective General Date of Service: Jan 13, 2017. Chief Complaint: follow-up atrial fibrillation, nonischemic cardiomyopathy Pt evaluation today including: conversation w/ patient, physical exam History of Present Illness The patient is a 56 year old male seen in follow up. Patient denies chest pain, SOB, lightheadedness or dizziness. Denies subjective palpitations. Walked in the hallway yesterday without assistance and demonstrated good balance. Allergies Coded Allergies: Naltrexone (Verified Allergy, Unknown, Hallucinations, 01/05/17) ROSEANNE Inhibitors (Verified Adverse Reaction, Intermediate, Cough, 06/06/13) Social History Smoking Status: Never Smoker Hx Tobacco Use In Past Year?: No Hx Alcohol Use - Type And Amou: Yes (beer 8-10 cans/day) Hx Substance Use - Type And Am: Yes Problem List Medical Problems: (1) Alcohol intoxication Status: Acute (2) Atrial fibrillation Status: Acute (3) Hypomagnesemia Status: Acute (4) Weakness Status: Acute Physical Exam Vital Signs Last Vital Signs Documentation Date Time Temp Pulse Resp B/P (MAP) Pulse Ox O2 Delivery O2 Flow Rate FiO2 01/13/17 07:31 36.7 74 20 137/83 (101) 95 Room Air Physical Exam Constitutional: Level of Distress: NAD Neck: supple Lungs: Auscultation: no wheezing, no rales/crackles Cardiovascular: Heart Auscultation: no murmurs, tachycardia, irregular rate rhythm Extremities: no edema Neurologic: Gait & Station: pertinent finding (no focal neurologic deficits) Assessment and Plan Assessment and Plan Last Resulted 01/12/17 06:23 Last Resulted 01/13/17 06:33 Past 24 Hours Test 01/13/17 06:33 Range/Units Prothromb Time International Ratio 1.9 H 0.9-1.1 Prothrombin Time 21.1 H 9.0-12.0 SECONDS Impression: 56-year-old male 1. Newly recognized atrial fibrillation, chronicity unknown 2. Nonischemic cardiomyopathy, mild left ventricular systolic dysfunction, compensated from a heart failure standpoint, etiologies include alcohol-related cardiomyopathy, tachycardia induced cardiomyopathy in the setting of atrial fibrillation with rapid ventricular rate of unknown chronicity, also he has a history of biopsy-proven sarcoid lung disease, and of course sarcoidosis is associated with conduction system disease. 3. Alcoholism, no withdrawal receiving Librium. Patient interested in alcohol cessation. Discussion / Recommendations: Patient's rates are much better controlled. Received a single dose of IV digoxin yesterday. Ventricular rates in the 70-80 bpm range in bed evening from 7 pm -9 pm. Overnight, had AF with slow ventricular response down to 37 bpm range with sleep. Looking back, he was on atenolol for years and this was transitioned to metoprolol on 01/08, current improved rate control (with nocturnal bradycardia) likely due to current dosing having reached steady state, and likely he is over the hump from and ETOH withdrawal perspective on librium. Stable for discharge on the follow ing medications. 1. Coumadin 2.5 mg daily, dose now before discharge. 2. Prior to hospital atenolol to be discontinued. 3. Ideally , given LV systolic dysfunction, would prefer for him to be on evidence based beta yohana, metoprolol succinate, however given bradycardia, I think it is safer to discharge patient on metoprolol tartrate 100 mg PO Q am, and 50 mg Q pm at bedtime. Will discontinue digoxin, although , if rates noted to be elevated at outpt follow up would be reasonable to increase the metoprolol or add back digoxin. No cardizem at discharge. No amdodipine at discharge, but can consider placing back on at follow up if needed for BP control. I think it is safer to am for resting ventricular rates in the 70-99 bpm range , than risk symptomatic bradycardia. Patient will need follow up with the [facility]. Cardiology follow up with Dr Harrison or Gracie within 1-2 weeks. Patient plans to cease alcohol use. Laboratory Results Last 24 Hours Test 01/13/17 06:33 Prothrombin Time 21.1 SECONDS Prothromb Time International Ratio 1.9 Sodium Level 139 mmol/L Potassium Level 4.0 mmol/L Chloride Level 104 mmol/L Carbon Dioxide Level 25 mmol/L Anion Gap 10.0 mmol/L Blood Urea Nitrogen 11 mg/dl Creatinine 0.85 mg/dl Est Creatinine Clear Calc Drug Dose 110.6 ml/min Estimated GFR () 113.7 Estimated GFR (Non- 98.1 BUN/Creatinine Ratio 13.1 Random Glucose 93 mg/dl Calcium Level 9.5 mg/dl Triglycerides Level 99 mg/dl Cholesterol Level 160 mg/dl HDL Cholesterol 48 mg/dl LDL Cholesterol, Calculated 92 mg/dl VLDL Cholesterol, Calculated 20 mg/dl Cholesterol/HDL Ratio 3.3
--- NOTE | 2017-01-13 10:31 | Progress Note ---
Subjective Date of Service: Jan 13, 2017. Subjective Pt evaluation today including: conversation w/ patient, physical exam, lab review, review of studies, review of inpatient medication list Saw/examined the patient in room 219 He has been doing well, no chest pain/palpitations/shortness of breath HRs improved overnight Problem List Medical Problems: (1) Alcohol intoxication Status: Acute (2) Atrial fibrillation Status: Acute (3) Hypomagnesemia Status: Acute (4) Weakness Status: Acute Review of Systems Constitutional: No fever, No chills Respiratory: No shortness of breath Cardiac: No chest pain, No edema, No palpitations Abdomen: No pain, No nausea, No vomiting, No diarrhea Heme: No abnormal bleeding/bruising Medications Current Inpatient Medications Medications (Trade) Dose Ordered Sig/Oliva Route Start Time Stop Time Status Last Admin Dose Admin Acetaminophen (Tylenol Tab) 650 mg Q4H PRN PO 01/07/17 18:15 02/06/17 18:14 01/08/17 16:47 650 MG Miscellaneous (Iv Fluids Completed) 1 ea PRN PRN N/A 01/07/17 18:30 01/07/18 18:29 Thiamine HCl (Vitamin B-1 Tab) 100 mg Q24H PO 01/07/17 19:30 02/06/17 19:29 01/12/17 19:14 100 MG Chlordiazepoxide (Librium Cap) 10 mg QID PO 01/07/17 21:00 02/06/17 20:59 01/13/17 08:33 10 MG Ranitidine HCl (zANTac TAB) 300 mg HS PRN PO 01/07/17 19:15 02/06/17 19:14 01/08/17 08:42 300 MG Pantoprazole Sodium (Protonix Tab) 40 mg QAM PO 01/08/17 09:00 02/07/17 08:59 01/13/17 08:31 40 MG Potassium Chloride (Klor-Con Tab) 20 meq BID PO 01/08/17 21:00 02/07/17 20:59 01/13/17 08:31 20 MEQ Oxycodone HCl (Roxicodone Immediate Rel Tab) 5 mg TID PRN PO 01/08/17 19:45 01/22/17 19:44 01/12/17 21:14 5 MG Multivitamins (Flintstones Complete Tab) 1 tab QAM PO 01/10/17 09:00 02/09/17 08:59 01/13/17 08:31 1 TAB Folic Acid (Folvite Tab) 1 mg QAM PO 01/10/17 09:00 02/09/17 08:59 01/13/17 08:31 1 MG Sodium Chloride 250 ml @ 999 mls/hr Q16M PRN IV 01/09/17 14:39 02/08/17 14:38 Metoprolol Tartrate (Lopressor Iv) 5 mg Q6 PRN IV 01/12/17 12:00 02/06/17 19:14 Warfarin Sodium (Coumadin Tab) 2.5 mg DAILY@16 PO 01/14/17 16:00 02/13/17 15:59 Metoprolol Tartrate (Lopressor Tab) 100 mg QAM PO 01/14/17 09:00 02/13/17 08:59 Metoprolol Tartrate (Lopressor Tab) 50 mg HS PO 01/13/17 21:00 02/12/17 20:59 Objective Vital Signs Date Time Temp Pulse Resp B/P (MAP) Pulse Ox O2 Delivery O2 Flow Rate FiO2 01/13/17 08:01 96 Room Air 01/13/17 07:31 36.7 74 20 137/83 (101) 95 Room Air 01/13/17 04:45 37.2 58 18 118/78 (91) 97 Room Air 01/13/17 04:00 Room Air 01/13/17 00:16 36.4 74 18 117/75 (89) 95 Room Air 01/12/17 23:59 Room Air 01/12/17 20:00 Room Air 01/12/17 19:19 36.8 78 16 129/83 (98) 98 Room Air 01/12/17 16:12 96 Room Air 01/12/17 15:42 36.9 84 16 119/80 (93) 97 Room Air 01/12/17 12:55 133 01/12/17 12:12 96 Room Air 01/12/17 11:39 37.2 112 20 138/100 (113) 97 Room Air 147/105 (119) Physical Exam General Appearance: no apparent distress Respiratory/Chest: chest non-tender, lungs clear, normal breath sounds, no respiratory distress, no accessory muscle use Cardiovascular: + irregularly irregular Abdomen: normal bowel sounds, non tender, soft Extremities: normal inspection, no pedal edema Neurologic/Psychiatric: no motor/sensory deficits, alert, normal mood/affect Laboratory Results Last 24 Hours Test 01/13/17 06:33 Prothrombin Time 21.1 SECONDS Prothromb Time International Ratio 1.9 Sodium Level 139 mmol/L Potassium Level 4.0 mmol/L Chloride Level 104 mmol/L Carbon Dioxide Level 25 mmol/L Anion Gap 10.0 mmol/L Blood Urea Nitrogen 11 mg/dl Creatinine 0.85 mg/dl Est Creatinine Clear Calc Drug Dose 110.6 ml/min Estimated GFR () 113.7 Estimated GFR (Non- 98.1 BUN/Creatinine Ratio 13.1 Random Glucose 93 mg/dl Calcium Level 9.5 mg/dl Triglycerides Level 99 mg/dl Cholesterol Level 160 mg/dl HDL Cholesterol 48 mg/dl LDL Cholesterol, Calculated 92 mg/dl VLDL Cholesterol, Calculated 20 mg/dl Cholesterol/HDL Ratio 3.3 Assessment and Plan This is a 56 year old male with a PMH of HTN, alcohol abuse, GERD, chronic cervical neck pain, presents with new onset A. Fib discovered incidentally as outpatient New Onset Atrial Fibrillation 01/13 HRs had been fluctuating yesterday overnight bradycardic slightly improving this morning in the 70s Cardizem and amlodipine stopped Digoxin was given yesterday, though stopped now plan is to d/c home with Metoprolol Tartrate 100mg AM and 50mg HS will also d/c with Coumadin 2.5mg - Anticoagulation clinic follow-up 01/11 appreciate cardiology input HRs still elevated, Toprol increased to 100mg BID INR jumped to >3 stopped IV heparin hold Coumadin for today, recheck INR in AM 01/10 New onset, continues to be in A. Fib with accelerated rate this was discovered incidentally as outpatient for pre-op for cataract surgery Atenolol changed to Toprol by cardiology - Toprol dose increased to 75mg BID () currently on IV heparin, bridging to Coumadin concern with alcoholism and bleeding risk - patient assures us that he will not drink again; will need close outpatient monitoring Cardiomyopathy and Wall Motion Abnormalities echo obtained during this admission * Normal LV chamber size and wall thickness. * Mildly reduced LV systolic function, EF 40-45%. * Moderate to severe hypokinesis of the anterior, anterolateral, inferolateral and apical brown. * Moderate left atrial enlargement. * No significant valvular pathology due to the wall motion abnormalities plan is for cardiac cath on 01/09 - no acute coronary findings Alcoholism/Abuse no withdrawal symptoms noted takes Librium at home, Gabapentin protocol started and should continue Thiamine, folic acid, multivitamin check Mg daily social work program coordinator consult [facility] Continue home dose of oxycodone DVT ppx On IV heparin and oral Coumadin FULL CODE
[2017-01-13] MEDS ORDERED: FLV1 PO (10:34)
[2017-01-13] MEDS ORDERED: METO50TA16 PO (10:34)
[2017-01-13] MEDS ORDERED: CMD25 PO (10:34)
[2017-01-13] MEDS ORDERED: THM100 PO (10:34)
[2017-01-13] MEDS ORDERED: MULT-589 PO (10:34)
[2017-01-13] MEDS ORDERED: LPR100 PO (10:34)
--- NOTE | 2017-01-13 10:38 | Discharge Instructions ---
Discharge Instructions Date of Service Jan 13, 2017. Admission Reason for Admission: Atrial Fibrillation Discharge Discharge Diagnosis / Problem: Atrial Fibrillation, EtOH abuse Discharge Goals Goal(s): Decrease discomfort, Improve function, Diagnostic testing, Therapeutic intervention Activity Recommendations Activity Limitations: resume your previous activity . Instructions / Follow-Up Instructions / Follow-Up Please follow-up with Dr. Lala on January 17 at 11:00AM Please follow-up with Dr. Harrison, cardiology, on January 21 at 12:45PM You will get a phone call with a date and time for an appointment with the Coumadin clinic * You will be discharged with metoprolol tartrate 100mg in the morning and 50mg in the evening * Stop taking atenolol and amlodipine * You will be discharged with folic acid, thiamine, and multivitamins - take these as well as Librium, which could be tapered off as per primary care physician Current Hospital Diet Patient's current hospital diet: AHA Diet (Heart Healthy) Discharge Diet Recommended Diet: AHA Diet (Heart Healthy) Pending Studies Studies pending at discharge: no Laboratory Results Lipid Panel Test 01/13/17 06:33 Range/Units Triglycerides Level 99 0-150 mg/dl Cholesterol Level 160 0-200 mg/dl HDL Cholesterol 48 mg/dl Cholesterol/HDL Ratio 3.3 LDL Cholesterol, Calculated 92 mg/dl Medical Emergencies . Who to Call and When: Medical Emergencies: If at any time you feel your situation is an emergency, please call 911 immediately. . Non-Emergent Contact Non-Emergency issues call your: Primary Care Provider, Law Office Manager . . "Provider Documentation" section prepared by Marcelina Pearl. . VTE Core Measure Inpt VTE Proph given/why not?: Warfarin (Coumadin)
--- NOTE | 2017-01-13 10:40 | Discharge Summary ---
Discharge Summary Date of Service Jan 13, 2017. Discharge Summary Admission Date: Jan 09, 2017 at 11:58 Discharge Date: Jan 13, 2017 Discharge Disposition: Home Principal Diagnosis: New onset atrial fibrillation Alcohol Abuse Medication Reconciliation New Medications: Multivitamins (Daily Maryjane) 1 Tab Tab 1 TAB PO DAILY for 30 Days, #30 TAB Folic Acid (Folic Acid) 1 Mg Tab 1 MG PO QAM for 30 Days, #30 TAB Metoprolol Tartrate (Metoprolol Tartrate) 100 Mg Tab 100 MG PO QAM for 30 Days, #30 TAB Metoprolol Tartrate (Lopressor) (Lopressor) 50 Mg Tab 50 MG PO HS for 30 Days, #30 TAB Thiamine HCl (Vitamin B-1) 100 Mg Tab 100 MG PO Q24H for 30 Days, #30 TAB Warfarin Sod (Coumadin) 2.5 Mg Tab 2.5 MG PO DAILY for 30 Days, #30 TAB Continued Medications: Alendronate Sodium (Fosamax) 70 Mg Tab 70 MG PO WK, TAB TAKE THIS MEDICATION ONCE WEEKLY 30 MINUTES BEFORE BREAKFAST WITH A FULL GLASS OF WATER. DO NOT LAY DOWN FOR 30 MINUTES AFTER TAKING. Chlordiazepoxide (Librium) 10 Mg Cap 10 MG PO QID, CAP Ibuprofen (Motrin) 400 Mg Tab 400 MG PO BID PRN for Pain, TAB PRN Ketorolac Tromethamine (Ophth) (Ketorolac Tromethamine) Unknown Strength Estela Unknown Dose OPL QID, #5 ML Magnesium Oxide (Magnesium) Unknown Strength Tab Unknown Dose PO DAILY Omeprazole (Prilosec) 20 Mg Capcr 20 MG PO DAILY, CAP Oxycodone Hcl (Oxycodone Hcl) 5 Mg Cap 1 CAP PO TID PRN for severe pain for 30 Days, #90 CAP Polymyxin/Trimethoprim Oph (Polytrim Oph) Unknown Strength Soln Unknown Dose OPL QID Prednisolone Acetate (Ophth) (Prednisolone Acetate) Unknown Strength Lisa Unknown Dose OPL QID for 5 Days, #5 ML Ranitidine (Zantac) 300 Mg Tab 300 MG PO HS PRN for Dyspepsia, TAB Discontinued Medications: Amlodipine Besylate (Norvasc) 10 Mg Tab 10 MG PO DAILY, TAB Atenolol (Tenormin) 50 Mg Tab 50 MG PO DAILY, TAB Admission Information HPI (per Admitting provider): This is a 56 year old male with PMH of hypertension, alcohol abuse, dyslipidemia , and other problems listed below who presents as a direct admission from Dr. Lala's office for recent onset atrial fibrillation. Patient states Afib was discovered incidentally at outpatient cataract surgery 4 days ago on 01/03. Patient had been sober since beginning of month until he started drinking beer again on Saturday and Saturday, states he drank "a lot" of beer, unclear how much. On Saturday he reports losing control of both of his hips while playing with his dog outside. No fall, injury, head trauma. This resolved after 30 minutes. Patient was seen in ER on Friday 01/[address] head and neck. Pt was noted to be in Afib with controlled rate. Alcohol level was 336. Mag was low and he was given IV replacement. Patient was seen by Dr. Lala today in follow up who noted he was still in Afib and sent him for direct admission. Last drink was yesterday. He reports prior history of alcohol withdrawal. No seizures. Pt has been on Librium at home. He is mildly tremulous with extending the upper extremities. He reports chronic c-spine pain and recent L shoulder fracture 1 month ago. Patient denies fever, chills, URI symptoms, cough, SOB, chest pain, palpitations, dizziness, syncope, abdominal pain, N/V/D, urinary changes, anxiety, calf pain, worsening of chronic BLLE edema. No prior hx of AF, CAD, CHF, DM, TIA, CVA. He reports history of GIB years ago, details unclear, but no recent abnormal bleeding. Physical Exam (per Admitting): General Appearance: WD/WN, no apparent distress, + pertinent finding (alert cooperative 56 year old male) Head: normocephalic, atraumatic Eyes: normal inspection, PERRL, EOMI, sclerae normal ENT: hearing grossly normal, pharynx normal Neck: supple, trachea midline Respiratory/Chest: lungs clear, normal breath sounds, no respiratory distress Cardiovascular: no murmur, normal peripheral pulses, + irregularly irregular (rate 100's) Abdomen/GI: normal bowel sounds, non tender, soft Extremities/Musculoskelatal: no calf tenderness, + pertinent finding (1+ pretibial edema bilaterally- chronic per patient. LUE in sling. ) Neurologic/Psych: alert, normal mood/affect, oriented x 3, + pertinent finding (mild tremor of outstretched upper extremities. no focal deficit on gross examination. ) Skin: normal color, warm/dry, + pertinent finding (superficial abrasions on lower extremities) Hospital Course This is a 56 year old male with a PMH of HTN, alcohol abuse, GERD, chronic cervical neck pain, presents with new onset A. Fib discovered incidentally as outpatient New Onset Atrial Fibrillation 01/13 HRs had been fluctuating yesterday overnight bradycardic slightly improving this morning in the 70s Cardizem and amlodipine stopped Digoxin was given yesterday, though stopped now plan is to d/c home with Metoprolol Tartrate 100mg AM and 50mg HS will also d/c with Coumadin 2.5mg - Anticoagulation clinic follow-up 01/11 appreciate cardiology input HRs still elevated, Toprol increased to 100mg BID INR jumped to >3 stopped IV heparin hold Coumadin for today, recheck INR in AM 01/10 New onset, continues to be in A. Fib with accelerated rate this was discovered incidentally as outpatient for pre-op for cataract surgery Atenolol changed to Toprol by cardiology - Toprol dose increased to 75mg BID () currently on IV heparin, bridging to Coumadin concern with alcoholism and bleeding risk - patient assures us that he will not drink again; will need close outpatient monitoring Cardiomyopathy and Wall Motion Abnormalities echo obtained during this admission * Normal LV chamber size and wall thickness. * Mildly reduced LV systolic function, EF 40-45%. * Moderate to severe hypokinesis of the anterior, anterolateral, inferolateral and apical brown. * Moderate left atrial enlargement. * No significant valvular pathology due to the wall motion abnormalities plan is for cardiac cath on 01/09 - no acute coronary findings Alcoholism/Abuse no withdrawal symptoms noted takes Librium at home, Gabapentin protocol started and should continue Thiamine, folic acid, multivitamin check Mg daily social media marketing manager consult Chronic Ne[facility] pain [facility] Continue home dose of oxycodone DVT ppx On IV heparin and oral Coumadin FULL CODE Total time spent on discharge = 45 minutes This includes examination of the patient, discharge planning, medication reconciliation, and communication with other providers. Discharge Instructions Please follow-up with Dr. Lala on January 17 at 11:00AM Please follow-up with Dr. Harrison, cardiology, on [address], [address] 3 at 12:45PM You will get a phone call with a date and time for an appointment with the Coumadin clinic * You will be discharged with metoprolol tartrate 100mg in the morning and 50mg in the evening * Stop taking atenolol and amlodipine * You will be discharged with folic acid, thiamine, and multivitamins - take these as well as Librium, which could be tapered off as per primary care physician
--- NOTE | 2017-01-13 11:13 | ORTHOPEDIC CONSULTATION ---
DATE OF CONSULTATION: 01/12/2017 TIME: 1:40 p.m. HISTORY OF PRESENT ILLNESS: The patient was seen at the request of the medical service as the patient had sustained a minimally displaced fracture of his left proximal humerus greater tuberosity, approximately 4 weeks ago. The patient was admitted to the hospital for atrial fibrillation and was using a sling intermittently for his left shoulder. At this time, the patient recalled that he has had several falls related to his "lower leg was feeling weak". The patient also recognize the fact that abusing alcohol for significant period of time period may or may not have been a contributing factor with his AFib. The patient denied any head or neck trauma, did have some minor neck spasm and discomfort which is intermittent. He had noticed some bruising on the left upper extremity. This has been improving somewhat over the last several days. PAST MEDICAL HISTORY: Alcohol abuse, adjustment disorder with depressed mood; alcohol liver damage, atrial fibrillation, cervical spinal stenosis, chronic; dyslipidemia, chronic lung nodule, sarcoidosis of the lung, chronic. PAST SURGICAL HISTORY: Cataract surgery, pilonidal cyst removal, appendectomy, thoracotomy in 2012, T&A, vasectomy. ALLERGIES: NALTREXONE, HALLUCINATIONS; ROSEANNE INHIBITORS, INTERMEDIATE COUGH. MEDICATION LIST: Fosamax weekly, Norvasc 10 mg daily, Tenormin 50 mg daily, Librium 10 mg four times per day, ketorolac q.i.d. p.r.n., Mag-Ox 400 mg daily, Prilosec 20 mg daily, Polytrim ophthalmic q.i.d., prednisolone acetate ophthalmic q.i.d., Motrin 400 mg p.o. b.i.d. p.r.n. pain, oxycodone 1 cap p.o. t.i.d. p.r.n. severe pain, Zantac 300 mg p.o. at bedtime p.r.n. dyspepsia. SOCIAL HISTORY: He drinks decaffeinated soda. He denies tobacco use. He is a heavy alcohol abuser. Denies drug use. He is and lives with his spouse. 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 PHYSICAL EXAMINATION: GENERAL: This is a 56-year-old gentleman, who appears older than his stated age. He is lying supine in her hospital room bed with the head upright. EXTREMITIES: Examination of the left upper extremity demonstrates skin warm, dry and intact. Cap refill less than 2 seconds. Radial pulse are 2/4. Radial, ulnar, median and axillary nerve sensory and motor function are intact. He has significant bruising on the left upper extremity. No skin lesions, no abrasions. He has tenderness to palpation diffusely in the proximal humerus. He has difficulty with active or passive range of motion of the left shoulder. Active and passive range of motion of the elbow, wrist and digits are within normal limits. IMAGING DATA: Radiographs of the left shoulder demonstrates a small, minimally displaced avulsion of the greater tuberosity of the left humerus. Some minor subchondral sclerosis of the glenohumeral joint. There is some hypertrophy of the acromioclavicular joint without significant joint space narrowing. IMPRESSION: 1. Left greater tuberosity avulsion without significant displacement. 2. Left shoulder bruising secondary to above. 3. Rotator cuff tendonitis secondary to above. RECOMMENDATIONS: Continue the use of sling when out of bed. May remove the sling while in bed. Pendulum and Codman's exercises were described and demonstrated for the patient. Ice to the shoulder p.r.n. Heat to the shoulder p.r.n. for comfort. Limited use of anti-inflammatories as needed for significant pain. Followup in clinic for repeat radiographs and then likely transition to physical therapy. Thank you for the opportunity to consult in the care of this patient. Of note: I attempted to dictate this report on January 12, 2017. I saw the patient and examined the patient on 01/12/2017 and attempted to dictate the report but the dictation system was inoperable at that time and was confirmed with the hospital eight arm operator and the IT department. LOLLY
--- NOTE | 2017-01-13 11:39 | Orthopedic Progress Note ---
Orthopedic Progress Note Date of Service Jan 13, 2017. Subjective Reports: feeling well, Denies: complaints, chest pain, SOB, nausea / vomiting Additional Notes: Left proximal shoulder discomfort stable, slightly improving. Objective N/V intact, capillary refill less than 2 sec., A&O x3 L UE radial pulse 2/4. + TTP proximal humerus. Limited AROM/PROM left shoulder secondary to pain. DNVSI Date Time Temp Pulse Resp B/P (MAP) Pulse Ox O2 Delivery O2 Flow Rate FiO2 01/13/17 08:01 96 Room Air 01/13/17 07:31 36.7 74 20 137/83 (101) 95 Room Air 01/13/17 04:45 37.2 58 18 118/78 (91) 97 Room Air 01/13/17 04:00 Room Air 01/13/17 00:16 36.4 74 18 117/75 (89) 95 Room Air 01/12/17 23:59 Room Air 01/12/17 20:00 Room Air 01/12/17 19:19 36.8 78 16 129/83 (98) 98 Room Air 01/12/17 16:12 96 Room Air 01/12/17 15:42 36.9 84 16 119/80 (93) 97 Room Air 01/12/17 12:55 133 01/12/17 12:12 96 Room Air 01/12/17 11:39 37.2 112 20 138/100 (113) 97 Room Air 147/105 (119) Laboratory Results 24 Hours: Test 01/13/17 06:33 Prothromb Time International Ratio 1.9 Prothrombin Time 21.1 SECONDS Assessment & Plan Assessment: Left proximal humerus minimally displaced greater tuberosity fracture Bruising L UE Left rotator cuff tendonitis Plan: Sling while ambulating May remove sling when in bed Codman's exercises F/U w/ [facility] as outpatient
[2017-01-13] MEDS ORDERED: DIGOXIN 0.125 MG TAB PO SCH (16:00)
[2017-01-13] MEDS ORDERED: METOPROLOL TARTRATE 50 MG TAB PO SCH (21:00)
[2017-01-14] MEDS ORDERED: ALENDRONATE SODIUM 70 MG TAB PO SCH (07:00)
[2017-01-14] MEDS ORDERED: METOPROLOL TARTRATE 100 MG TAB PO SCH (09:00)
[2017-01-14] MEDS ORDERED: WARFARIN SOD 2.5 MG TAB PO SCH (16:00)
== END 2017-01-13 15:56 | disposition home or self-care (01) | DRG 287 ==
LOC: C.2T 17:52 → INTOOBSV 17:52 → OBSVTOIN 01-09 11:58
PROVIDERS: ADMIT Hospitalist; ATTEND Family Medicine
PROC: 4A023N7 Measurement of Cardiac Sampling and Pressure, Left Heart, Percutaneous Approach (ICD-10-PCS; principal; 2017-01-10)
PROC: B2151ZZ Fluoroscopy of Left Heart using Low Osmolar Contrast (ICD-10-PCS; principal; 2017-01-10)
PROC: B2111ZZ Fluoroscopy of Multiple Coronary Arteries using Low Osmolar Contrast (ICD-10-PCS; principal; 2017-01-10)
DX: I48.91 Unspecified atrial fibrillation (principal); I10 Essential (primary) hypertension; F10.20 Alcohol dependence, uncomplicated; F43.21 Adjustment disorder with depressed mood; M48.02 Spinal stenosis, cervical region; S42.252D Displaced fracture of greater tuberosity of left humerus, subsequent encounter for fracture with routine healing; M77.8 Other enthesopathies, not elsewhere classified; T45.516A Underdosing of anticoagulants, initial encounter; D86.0 Sarcoidosis of lung; Z82.49 Family history of ischemic heart disease and other diseases of the circulatory system; K21.9 Gastro-esophageal reflux disease without esophagitis; I42.9 Cardiomyopathy, unspecified; E83.42 Hypomagnesemia; K70.9 Alcoholic liver disease, unspecified; R79.1 Abnormal coagulation profile; X58.XXXD Exposure to other specified factors, subsequent encounter; Y92.239 Unspecified place in hospital as the place of occurrence of the external cause

== ENCOUNTER 2017-03-27 19:32 | Inpatient (IN) | payer BC ==
[2017-03-27] VITALS (18 sets, daily range): BP systolic 98–208; BP diastolic 64–153; PULSE 113–135; TEMP 38.1; O2SAT 91–100; Ht 177.8 cm; Wt 79.2 kg
[~2017-03-27] VITALS: Ht 177.8 cm; Wt 79.2 kg
[~2017-03-27 19:32] MED LIST changes: -AMLO10TA2 PO; -ATEN50TA8 PO; +CMD25 PO; +FLV1 PO; +IBUP-1459 PO; +KETO0.5S22 OPL; +LPR100 PO; +MAGN1TAB41 PO; +METO50TA16 PO; +MULT-589 PO; +OXYC1CAP5 PO; +POLYSOL50 OPL; +PRED1SUS17 OPL; +RAPID SEQUENCE INDUCTION BAG ONE; +THM100 PO
[2017-03-27] MEDS ORDERED: LORAZEPAM 2 MG/ML 1 ML VIAL ONE ×2 (19:34→21:19)
[2017-03-27] MEDS ORDERED: LEVETIRACTAM 1000 MG in DEXTROSE 5% 100ML IV STA (19:37)
[2017-03-27] MEDS ORDERED: PROPOFOL IV EMULSION 10 MG/ML 100 ML VIAL IV ONE (19:38)
[2017-03-27] MEDS ORDERED: SODIUM CHLORIDE 0.9% 1000ML 2,000 ML IV STA (19:53)
[2017-03-27] MEDS ORDERED: DILTIAZEM BOLUS / DRIP IV STA (19:57)
[2017-03-27 20:00] LABS: ISTAT CREATININE 1.2 mg/dl (0.6-1.3); ISTAT IONIZED CALCIUM 1.09 mmol/l (1.12-1.32)
[2017-03-27] MEDS ORDERED: DILTIAZEM HCL 5 MG/ML 5 ML VIAL IV SCH (20:10)
--- NOTE | 2017-03-27 20:10 | DIAGNOSTIC IMAGING REPORT ---
ADDENDUM Addendum: A minimally displaced left humeral head fracture is noted. This was shown on exam of January 11, 2017. Electronically signed by: Reggie Villareal M.D. 03/27/2017 8:11 PM Dictated Date/Time: 03/27/2017 8:11 PM ORIGINAL REPORT CHEST ONE VIEW PORTABLE CLINICAL HISTORY: Intubation. COMPARISON STUDY: Chest radiograph January 07, 2017. TECHNIQUE: Portable supine AP chest radiograph obtained at 7:46 PM. FINDINGS: The tip of the endotracheal tube is 13 cm above the lisa. Subsequent chest radiograph showed the endotracheal tube to be advanced. There is no pneumothorax. Patient is rotated. Cardiomediastinal silhouette is stable. Postoperative findings within the left hemithorax are noted with a left suprahilar opacity which is unchanged. IMPRESSION: 1. Endotracheal tube 13 cm above the lisa. Subsequent chest radiograph showed the tube to be advanced appropriately. 2. Rotated study. 3. Pulmonary vascular congestion without overt edema. Electronically signed by: Reggie Villareal M.D. 03/27/2017 8:08 PM Dictated Date/Time: 03/27/2017 8:05 PM
--- NOTE | 2017-03-27 20:12 | DIAGNOSTIC IMAGING REPORT ---
CHEST ONE VIEW PORTABLE CLINICAL HISTORY: Tube placement. COMPARISON STUDY: Chest radiograph March 27, 2017 at 7:41 PM. FINDINGS: The tip of the endotracheal tube is 4.8 cm above the lisa. Patient is rotated. Lateral aspect of the lower left hemithorax was not included on this exam. There is no pneumothorax. Postsurgical findings within the left lung with left suprahilar opacity are unchanged. IMPRESSION: 1. Satisfactory positioning of the endotracheal tube. 2. Rotated study. 3. No pneumothorax. 4. Stable postoperative findings within the left lung. Electronically signed by: Reggie Villareal M.D. 03/27/2017 8:10 PM Dictated Date/Time: 03/27/2017 8:08 PM
[2017-03-27 20:13] LABS: BASO ABS # 0.01 K/uL (0-0.2); COMPLETE YES; HEMATOCRIT 43.8 % (42-52); IG% 0.7 %; LYMPH ABS # 1.27 K/uL (1.2-3.4); MEAN CORPUSCULAR HEMOGLOBIN 30.9 pg (25-34); MEAN CORPUSCULAR HGB CONC 33.6 g/dl (32-36); MEAN PLATELET VOLUME 9.6 fL (7.4-10.4); MONO % 4.3 %; PLATELET COUNT 419 K/uL (130-400); RED BLOOD COUNT 4.76 M/uL (4.7-6.1); WHITE BLOOD COUNT 21.17 K/uL (4.8-10.8)
[2017-03-27] MEDS ORDERED: DILTIAZEM HCL INJ 125 MG in DEXTROSE 5% 100ML IV PRN (20:15)
[2017-03-27] MEDS ORDERED: GABA-112 PO (20:17)
[2017-03-27] MEDS ORDERED: MAGN400T6 PO (20:17)
[2017-03-27] MEDS ORDERED: METO100T14 PO (20:17)
[2017-03-27] MEDS ORDERED: WARF2.5T8 PO ×2 (20:17)
[2017-03-27] MEDS ORDERED: IRBE-37 PO (20:17)
[2017-03-27 20:22] LABS: ISTAT ARTERIAL BLOOD GAS HCO3 16 meq/L (19-24); ISTAT ARTERIAL BLOOD GAS PCO2 59 mmHg (35-46); ISTAT ARTERIAL BLOOD GAS PO2 289 mmHg (80-95); ISTAT ARTERIAL BLOOD GAS pH 7.05 (7.35-7.45); ISTAT CARBON DIOXIDE 18 mEq/l (24-31)
[2017-03-27 20:31] LABS: BUN/CREATININE RATIO 7.1 (10-20); CALCIUM 7.5 mg/dl (8.5-10.1); CREATININE 1.4 mg/dl (0.60-1.40); MAGNESIUM 2.1 mg/dl (1.8-2.4); POTASSIUM 4.7 mmol/L (3.5-5.1)
[2017-03-27 20:34] LABS: MANUAL MICROSCOPIC REQUIRED? NO; REVIEW REQ? YES; URINE APPEARANCE CLOUDY (CLEAR); URINE BILIRUBIN NEG (NEG); URINE COLOR YELLOW; URINE EPITHELIAL CELL AUTO >30 /lpf (0-5); URINE NITRITE NEG (NEG); UROBILINOGEN NEG (NEG); ZZURINE CULT IF INDIC CATH YES
[2017-03-27 20:37] LABS: INR 3.9 (0.9-1.1); PARTIAL THROMBOPLASTIN RATIO 1.6; PROTHROMBIN TIME (PATIENT) 44.3 SECONDS (9.0-12.0)
[2017-03-27] MEDS ORDERED: SODIUM CHLORIDE 0.9% 1000ML 1,000 ML IV STA (20:40)
--- NOTE | 2017-03-27 20:41 | DIAGNOSTIC IMAGING REPORT ---
CT OF THE HEAD WITHOUT CONTRAST CLINICAL HISTORY: EVALUATE ALTERED MENTAL STATUS/WEAKNESS COMPARISON STUDY: Head CT January 05, 2017. TECHNIQUE: Helical axial images of the head were obtained without IV contrast. Automated exposure control was utilized for the study. A dose lowering technique was utilized adhering to the principles of ALARA. FINDINGS: Note is made of a 1.9 x 0.6 cm acute hematoma within the right external capsule with possible involvement of the right basal ganglia. This is new since exam of January 05, 2017. This exam is moderately compromised by motion artifact but no additional sites of intracranial hemorrhage are identified. Ventricular system is stable. The basilar cisterns are patent. There are no extra axial collections. Sensitivity for detection of calvarial fractures is diminished on this exam but none are identified. IMPRESSION: 1.9 x 0.6 cm acute intraparenchymal hematoma within the right external capsule and basal ganglia. Mild associated edema with no significant mass effect. This may reflect a hypertensive hemorrhage. Findings discussed with Dr. Solomon at time of dictation.. Electronically signed by: Reggie Villareal M.D. 03/27/2017 8:40 PM Dictated Date/Time: 03/27/2017 8:36 PM
[2017-03-27 20:42] LABS: URINE PATH CASTS 0-3 GRANULAR CASTS /lpf (0)
[2017-03-27] MEDS ORDERED: PHYTONADIONE INJ 10 MG in SODIUM CHLORIDE 0.9% 50ML 50 ML IV ONE ×2 (20:45→21:00)
--- NOTE | 2017-03-27 20:45 | DIAGNOSTIC IMAGING REPORT ---
CT OF THE CERVICAL SPINE WITHOUT CONTRAST CLINICAL HISTORY: Fall. COMPARISON STUDY: Cervical spine CT January 05, 2017. TECHNIQUE: Helical axial images of the cervical spine were obtained without IV contrast. Sagittal and coronal reconstructions were viewed. A dose lowering technique was utilized adhering to the principles of ALARA. FINDINGS: This exam is moderately compromised by motion artifact. No acute cervical spine fracture is identified. Endotracheal and nasogastric tubes are partially imaged. There is no prevertebral edema. Post operative findings within visualized portions of the left upper lobe are incidentally noted. No pneumothorax is shown within visualized portions of the lungs. There is moderate multilevel facet arthrosis with mild multilevel degenerative disc disease. IMPRESSION: Exam moderately compromised by motion artifact but no acute cervical spine fracture or subluxation identified. Electronically signed by: Reggie Villareal M.D. 03/27/2017 8:44 PM Dictated Date/Time: 03/27/2017 8:40 PM
[2017-03-27 20:46] LABS: ALB/GLOB RATIO 0.9 (0.9-2); THYROID STIMULATING HORMONE 1.16 uIu/ml (0.300-4.500)
[2017-03-27] MEDS ORDERED: LABETALOL HCL IV 5 MG/ML 20ML IV STA (20:57)
[2017-03-27] MEDS ORDERED: LABETALOL HCL IV 5 MG/ML 20ML IV ONE (20:58)
[2017-03-27] MEDS ORDERED: PROTHROMBIN COMP CONC- KCENTRA 2,000 UNIT in SYRINGE 0 ML IV ONE (21:00)
[2017-03-27] MEDS ORDERED: LORAZEPAM 2 MG/ML 1 ML VIAL IV STA (21:18)
[2017-03-27 21:40] LABS: BENZODIAZEPINE, URINE POS (NEG); COCAINE,URINE NEG (NEG); PHENCYCLIDINE, URINE NEG (NEG)
--- NOTE | 2017-03-27 22:11 | EMERGENCY ROOM VISIT NOTE ---
History Report prepared by Fartun: Kelli Osullivan Under the Supervision of: Dr. Gee Solomon M.D. 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 He presents to the ED by EMS. The patient was found unresponsive by his . It is unknown when he became unresponsive. He was found laying in his own urine. He had had no complaints prior to today. He was not seizing when EMS arrived. Around 1850, he started having a seizure. EMS estimates that he has started and stopped seizing around 4 times. He was given Ativan and versed in route. He was intubated in route. His blood sugar was 187. The patient has a history of alcohol abuse, cirrhosis, A fib, and sarcoidosis. He is on Coumadin. The history is limited due to the patient's AMS. 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 Review of Systems Unobtainable due to AMS. Past Medical & Surgical Medical Problems: (1) Adjustment disorder with depressed mood (2) Alcohol abuse (3) Alcoholic liver damage (4) Atrial fibrillation (5) Cervical spinal stenosis (6) Dyslipidemia (7) Hypertension (8) Lung nodule (9) Sarcoidosis of lung (10) Seizure Surgical Problems: (1) History of appendectomy (2) History of cataract surgery (3) History of surgical removal of pilonidal cyst (4) S/P appendectomy (5) S/P thoracotomy (6) S/P tonsillectomy (7) S/P vasectomy Family History Cancer FH: CAD (coronary artery disease) FATHER GRANDFATHER Hypertension FATHER Social History Smoking Status: Never Smoker Alcohol Use: heavy Drug Use: none Marital Status: Housing Status: lives with family Current/Historical Medications Scheduled Alendronate Sodium (Fosamax), 70 MG PO WK Folic Acid (Folic Acid), 1 MG PO QAM Gabapentin (Neurontin), 100 MG PO TID Irbesartan (Avapro), 300 MG PO HS Magnesium Oxide (Mag-Ox), 400 MG PO DAILY Metoprolol Tartrate (Lopressor) (Lopressor), 100 MG PO BID Multivitamins (Daily Maryjane), 1 TAB PO DAILY Omeprazole (Prilosec), 20 MG PO DAILY Thiamine HCl (Vitamin B-1), 100 MG PO Q24H Warfarin Sod (Jantoven), 2.5 MG PO 6XWK Warfarin Sod (Jantoven), 5 MG PO SATURDAY Scheduled PRN Ibuprofen (Motrin), 400 MG PO BID PRN for Pain Oxycodone Hcl (Oxycodone Hcl), 1 CAP PO TID PRN for severe pain Allergies Coded Allergies: Naltrexone (Verified Allergy, Unknown, Hallucinations, 03/27/17) ROSEANNE Inhibitors (Verified Adverse Reaction, Intermediate, Cough, 03/27/17) Physical Exam Vital Signs Date Time Temp Pulse Resp B/P (MAP) Pulse Ox O2 Delivery O2 Flow Rate FiO2 03/27/17 21:41 37.3 119 25 150/96 96 Mechanical Ventilator 50 03/27/17 21:36 118 27 177/111 96 Mechanical Ventilator 50 03/27/17 21:31 117 25 173/111 98 Mechanical Ventilator 50 03/27/17 21:26 118 25 177/113 98 Mechanical Ventilator 50 03/27/17 21:21 119 25 180/111 98 Mechanical Ventilator 50 03/27/17 21:16 119 25 171/106 97 Mechanical Ventilator 50 03/27/17 21:11 122 25 145/97 96 Mechanical Ventilator 50 03/27/17 21:06 129 25 132/84 96 Mechanical Ventilator 50 03/27/17 21:02 138 25 200/125 95 Mechanical Ventilator 50 03/27/17 21:01 136 25 198/123 96 Mechanical Ventilator 50 03/27/17 20:57 132 25 178/105 96 Mechanical Ventilator 50 03/27/17 20:50 50 03/27/17 20:49 130 25 177/108 94 03/27/17 20:46 188/108 96 03/27/17 20:41 155/94 96 03/27/17 20:33 142 29 84/64 96 03/27/17 20:18 146 23 108/71 96 03/27/17 20:01 144 19 141/101 99 Mechanical Ventilator 03/27/17 19:46 148 20 125/77 100 Mechanical Ventilator 03/27/17 19:38 156 03/27/17 19:36 100 Mechanical Ventilator 50 03/27/17 19:36 98 Mechanical Ventilator 03/27/17 19:36 37.3 152 19 112/77 100 Mechanical Ventilator Physical Exam GENERAL: Patient is intubated and actively seizing. HEENT: No acute trauma, normocephalic atraumatic, no scalp hematoma, mucous membranes moist, oral endotracheal tube in place, nasal airway in place, no scleral icterus. NECK: No posterior bony step off, trachea midline, no stridor. LUNGS: Breath sounds equal bilaterally, no wheezing, overbreathing the ventilator. HEART: Tachycardic rate and regular rhythm, no murmurs. ABDOMEN: Soft, nontender, bowel sounds positive, no hernias, no peritonitis. EXTREMITIES: No cyanosis or edema, full range of motion of all the joints without pain or difficulty, no signs for acute trauma. NEUROLOGIC: Active tonic clonic seizure activity noted, unresponsive to pain, intubated. SKIN: No rash, no jaundice, no diaphoresis. Medical Decision & Procedures ER Provider Diagnostic Interpretation: X-ray results as stated below per interpretation by me and the radiologist. Radiology results as stated below per my review and radiologist interpretation: ADDENDUM Addendum: A minimally displaced left humeral head fracture is noted. This was shown on exam of January 11, 2017. Electronically signed by: Reggie Villareal M.D. 03/27/2017 8:11 PM Dictated Date/Time: 03/27/2017 8:11 PM ORIGINAL REPORT CHEST ONE VIEW PORTABLE CLINICAL HISTORY: Intubation. COMPARISON STUDY: Chest radiograph January 07, 2017. TECHNIQUE: Portable supine AP chest radiograph obtained at 7:46 PM. FINDINGS: The tip of the endotracheal tube is 13 cm above the lisa. Subsequent chest radiograph showed the endotracheal tube to be advanced. There is no pneumothorax. Patient is rotated. Cardiomediastinal silhouette is stable. Postoperative findings within the left hemithorax are noted with a left suprahilar opacity which is unchanged. IMPRESSION: 1. Endotracheal tube 13 cm above the lisa. Subsequent chest radiograph showed the tube to be advanced appropriately. 2. Rotated study. 3. Pulmonary vascular congestion without overt edema. Electronically signed by: Reggie Villareal M.D. 03/27/2017 8:08 PM Dictated Date/Time: 03/27/2017 8:05 PM CHEST ONE VIEW PORTABLE CLINICAL HISTORY: Tube placement. COMPARISON STUDY: Chest radiograph March 27, 2017 at 7:41 PM. FINDINGS: The tip of the endotracheal tube is 4.8 cm above the lisa. Patient is rotated. Lateral aspect of the lower left hemithorax was not included on this exam. There is no pneumothorax. Postsurgical findings within the left lung with left suprahilar opacity are unchanged. IMPRESSION: 1. Satisfactory positioning of the endotracheal tube. 2. Rotated study. 3. No pneumothorax. 4. Stable postoperative findings within the left lung. Electronically signed by: Reggie Villareal M.D. 03/27/2017 8:10 PM Dictated Date/Time: 03/27/2017 8:[address] OF THE HEAD WITHOUT CONTRAST CLINICAL HISTORY: EVALUATE ALTERED MENTAL STATUS/WEAKNESS COMPARISON STUDY: Head CT January 05, 2017. TECHNIQUE: Helical axial images of the head were obtained without IV contrast. Automated exposure control was utilized for the study. A dose lowering technique was utilized adhering to the principles of ALARA. FINDINGS: Note is made of a 1.9 x 0.6 cm acute hematoma within the right external capsule with possible involvement of the right basal ganglia. This is new since exam of January 05, 2017. This exam is moderately compromised by motion artifact but no additional sites of intracranial hemorrhage are identified. Ventricular system is stable. The basilar cisterns are patent. There are no extra axial collections. Sensitivity for detection of calvarial fractures is diminished on this exam but none are identified. IMPRESSION: 1.9 x 0.6 cm acute intraparenchymal hematoma within the right external capsule and basal ganglia. Mild associated edema with no significant mass effect. This may reflect a hypertensive hemorrhage. Findings discussed with Dr. Solomon at time of dictation.. Electronically signed by: Reggie Villareal M.D. 03/27/2017 8:40 PM Dictated Date/Time: 03/27/2017 8:[address] OF THE CERVICAL SPINE WITHOUT CONTRAST CLINICAL HISTORY: Fall. COMPARISON STUDY: Cervical spine CT January 05, 2017. TECHNIQUE: Helical axial images of the cervical spine were obtained without IV contrast. Sagittal and coronal reconstructions were viewed. A dose lowering technique was utilized adhering to the principles of ALARA. FINDINGS: This exam is moderately compromised by motion artifact. No acute cervical spine fracture is identified. Endotracheal and nasogastric tubes are partially imaged. There is no prevertebral edema. Post operative findings within visualized portions of the left upper lobe are incidentally noted. No pneumothorax is shown within visualized portions of the lungs. There is moderate multilevel facet arthrosis with mild multilevel degenerative disc disease. IMPRESSION: Exam moderately compromised by motion artifact but no acute cervical spine fracture or subluxation identified. Electronically signed by: Reggie Villareal M.D. 03/27/2017 8:44 PM Dictated Date/Time: 03/27/2017 8:40 PM Laboratory Results 03/27/17 19:37 Red Blood Count 4.76, Mean Corpuscular Volume 92.0, Mean Corpuscular Hemoglobin 30.9, Mean Corpuscular Hemoglobin Concent 33.6, Mean Platelet Volume 9.6, Neutrophils (%) (Auto) 89.0, Lymphocytes (%) (Auto) 6.0, Monocytes (%) (Auto) 4.3, Eosinophils (%) (Auto) 0.0, Basophils (%) (Auto) 0.0, Neutrophils # (Auto) 18.84, Lymphocytes # (Auto) 1.27, Monocytes # (Auto) 0.90, Eosinophils # (Auto) 0.01, Basophils # (Auto) 0.01 03/27/17 19:37 Test 03/27/17 19:37 03/27/17 19:46 03/27/17 19:48 03/27/17 20:10 White Blood Count 21.17 K/uL (4.8-10.8) Red Blood Count 4.76 M/uL (4.7-6.1) Hemoglobin 14.7 g/dL (14.0-18.0) Hematocrit 43.8 % (42-52) Mean Corpuscular Volume 92.0 fL (80-100) Mean Corpuscular Hemoglobin 30.9 pg (25-34) Mean Corpuscular Hemoglobin Concent 33.6 g/dl (32-36) Platelet Count 419 K/uL (130-400) Mean Platelet Volume 9.6 fL (7.4-10.4) Neutrophils (%) (Auto) 89.0 % Lymphocytes (%) (Auto) 6.0 % Monocytes (%) (Auto) 4.3 % Eosinophils (%) (Auto) 0.0 % Basophils (%) (Auto) 0.0 % Neutrophils # (Auto) 18.84 K/uL (1.4-6.5) Lymphocytes # (Auto) 1.27 K/uL (1.2-3.4) Monocytes # (Auto) 0.90 K/uL (0.11-0.59) Eosinophils # (Auto) 0.01 K/uL (0-0.5) Basophils # (Auto) 0.01 K/uL (0-0.2) RDW Standard Deviation 43.5 fL (36.4-46.3) RDW Coefficient of Variation 12.9 % (11.5-14.5) Immature Granulocyte % (Auto) 0.7 % Immature Granulocyte # (Auto) 0.14 K/uL (0.00-0.02) Activated Partial Thromboplast Time 42.1 SECONDS (21.0-31.0) Partial Thromboplastin Ratio 1.6 Est Creatinine Clear Calc Drug Dose 61.7 ml/min Estimated GFR () 65.1 Estimated GFR (Non- 56.2 BUN/Creatinine Ratio 7.1 (10-20) Calcium Level 7.5 mg/dl (8.5-10.1) Magnesium Level 2.1 mg/dl (1.8-2.4) Total Bilirubin 0.2 mg/dl (0.2-1) Aspartate Amino Transf (AST/SGOT) 56 U/L (15-37) Alanine Aminotransferase (ALT/SGPT) 34 U/L (12-78) Alkaline Phosphatase 78 U/L (45-117) Troponin I 0.069 ng/ml (0-0.045) Total Protein 8.0 gm/dl (6.4-8.2) Albumin 3.7 gm/dl (3.4-5.0) Globulin 4.3 gm/dl (2.5-4.0) Albumin/Globulin Ratio 0.9 (0.9-2) Thyroid Stimulating Hormone (TSH) 1.160 uIu/ml (0.300-4.500) Ethyl Alcohol mg/dL < 3.0 mg/dl (0-3) Bedside Troponin I 0.040 ng/ml (0-0.045) Bedside Chloride 99 mEq/L (101-112) Bedside Total CO2 17 mEq/l (24-31) Anion Gap 21.0 mmol/L (16-25) Bedside Blood Urea Nitrogen 10 mg/dl (7-18) Bedside Creatinine 1.2 mg/dl (0.6-1.3) Bedside Glucose (other) 163 mg/dl (70-99) Bedside Ionized Calcium (Priti) 1.09 mmol/l (1.12-1.32) Urine Color YELLOW Urine Appearance CLOUDY (CLEAR) Urine pH 5.0 (4.5-7.5) Urine Specific [place] 1.020 (1.000-1.030) Urine Protein 2+ (NEG) Urine Glucose (UA) NEG (NEG) Urine Ketones NEG (NEG) Urine Occult Blood 3+ (NEG) Urine Nitrite NEG (NEG) Urine Bilirubin NEG (NEG) Urine Urobilinogen NEG (NEG) Urine Leukocyte Esterase NEG (NEG) Urine WBC (Auto) 1-5 /hpf (0-5) Urine RBC (Auto) 0-4 /hpf (0-4) Urine Hyaline Casts (Auto) /lpf (0-5) Urine Epithelial Cells (Auto) >30 /lpf (0-5) Urine Bacteria (Auto) NEG (NEG) Urine Pathogenic Casts 0-3 GRANULAR CASTS /lpf (0) Urine Yeast (Auto) (NONE PRSENT) Urine Opiates Screen NEG (NEG) Urine Methadone, Qualitative NEG (NEG) Urine Barbiturates NEG (NEG) Urine Phencyclidine (PCP) Level NEG (NEG) Ur Amphetamine/Methamphetamine NEG (NEG) MDMA (Ecstasy) Screen NEG (NEG) Urine Benzodiazepines Screen POS (NEG) Urine Cocaine Metabolite NEG (NEG) Urine Marijuana (THC) NEG (NEG) Test 03/27/17 20:14 03/27/17 20:36 Lactic Acid Level 7.1 mmol/L (0.4-2.0) Bedside Prothrombin Time INR 3.5 (0.9-1.1) Laboratory results reviewed by me. Medications Administered Medications (Trade) Dose Ordered Sig/Oliva Route Start Time Stop Time Status Last Admin Dose Admin Lorazepam (Ativan Inj) 4 mg STK-MED ONCE .ROUTE 03/27/17 19:34 03/27/17 19:35 DC 03/27/17 19:34 4 MG Levetiracetam 1000 mg/Dextrose 110 ml @ 440 mls/hr NOW STAT IV 03/27/17 19:37 03/27/17 19:51 DC 03/27/17 19:37 440 MLS/HR Propofol (Diprivan Iv Emulsion 100ml Vial) 1 dose STK-MED ONCE IV 03/27/17 19:38 03/27/17 19:39 DC 03/27/17 19:38 1 DOSE Sodium Chloride 2,000 ml @ 999 mls/hr Q2H1M STAT IV 03/27/17 19:53 03/27/17 21:53 DC 03/27/17 19:53 999 MLS/HR Diltiazem HCl (Cardizem Inj) 10 mg TODAY@2009 IV 03/27/17 20:10 03/27/17 20:11 DC 03/27/17 20:17 10 MG Sodium Chloride 1,000 ml @ 999 mls/hr Q1H1M STAT IV 03/27/17 20:40 03/27/17 21:40 DC 03/27/17 20:55 999 MLS/HR Phytonadione 10 mg/Sodium Chloride 51 ml @ 101 mls/hr NOW ONCE IV 03/27/17 21:00 03/27/17 21:30 DC 03/27/17 21:00 101 MLS/HR Prothrombin Complex Concent (Human) 2000 unit/ Syringe 80 ml @ 10 mls/min NOW ONCE IV 03/27/17 21:00 03/27/17 21:07 DC 03/27/17 20:48 10 MLS/MIN Labetalol HCl (Normodyne IV) 10 mg NOW STAT IV 03/27/17 20:57 03/27/17 20:58 DC 03/27/17 21:08 10 MG Lorazepam (Ativan Inj) 2 mg NOW STAT IV 03/27/17 21:18 03/27/17 21:19 DC 03/27/17 21:21 2 MG ECG Indication: altered mental status Rate (beats per minute): 147 Rhythm: other (narrow complex tachycardia likely atrial flutter) Findings: no acute ischemic change, no ectopy Change: Repeat EKG: sinus tachycardia, rate 118, old inferior and anterior infarct, no acute ischemia, no ectopy. ED Course 1932: The patient was evaluated in room B1. A complete history and physical exam was performed. 1933: Lorazepam 4 mg IV. 1936: Levetiracetam 1000mg/Dextrose 110 ml @ 440 mls/hr IV. 1937: Diprivan Iv Emulsion 100ml Vial 1 dose IV. 1953: NSS 2000 ml @ 999 mls/hr IV. 2009: Diltiazem HCl 10 mg IV. 2014: I spoke with the patients family, , and mother. His has not seen him since this morning. She reports that he has not had any alcohol since December when he was in the ED. 2021: I discussed the patient's case with the ICU attending. He is in agreement with the plan and has no other suggestions at this time. He will see the patient upstairs. 2032: I spoke with Dr. Villareal of radiology. He discussed the CT findings with me. 2033: I reevaluated the patient. I updated the family on the results. 2039: NSS 1000 ml @ 999 mls/hr IV. 2044: I discussed the patient's case with Dr. Hawkins, [facility] emergency medicine. They have accepted the patient for transfer. We will get in contact with the [place] ICU. 2049: [facility] is unable to fly due to the weather. 2056: Labetalol HCl 10 mg IV. 2099: Prothrombin Complex Concent (Human) 2000 unit/Syringe 80 ml @ 10 mls/min IV, Phytonadione 10 mg/Sodium Chloride 51 ml @ 101 mls/hr IV. 2109: I discussed the patient's case with Dr. Wilhelm, [facility] babbitter. 2117: Lorazepam 2 mg IV. 2118: I discussed with the ICU attending again. I updated him on the plan. The patient will stay in the ICU here. 2128: I discussed with Dr. Wilhelm again. I informed them that the patient cannot be flown because the weather does not permit. The patient will stay in the ICU here. 2136: I discussed the patient's case with Dr. Ayala, [facility] hospitalist. He will put orders in for admission. 2139: Upon reexamination the patient is stable. I discussed results and treatment plan with the patient's family. They verbalize agreement and understanding. The patient will be evaluated for further management. 5: The patient has been taken to the ICU. Medical Decision Differential diagnoses considered include withdrawal, alcohol withdrawal seizure , intracranial bleeding, dehydration, electrolyte imbalance, dysrhythmia, SD, drug abuse, infection, trauma. There is a significant leukocytosis at 20,000, this could be consistent with the stress of his situation or possibly infection. No concerning anemia. No significant electrolyte abnormality or kidney failure. There was no hepatitis. The patient appeared to be in a euthyroid state. Urinalysis did not show infection. INR was elevated at over 3 consistent with his Coumadin use. Lactic acid level was quite elevated at greater than 7, this could be consistent with dehydration or possibly infection. ABG showed an acidosis with a pH just over 7. The acidosis was respiratory as well as metabolic. Blood cultures are pending. Total CK was elevated consistent with his seizure history. Alcohol level was undetectable. Urine tox was positive for benzos only. EKG showed a possible atrial flutter versus SVT. No acute ischemia. Of note, the patient has a history of A. fib/A flutter. Cardiac troponin was slightly elevated consistent with cardiac strain/injury.. Initial chest film did not show pneumonia but the endotracheal tube was high. It was advanced 4 cm and a repeat film showed better positioning, no pneumonia or pneumothorax. C -spine CT did not show any acute fracture. Brain CT showed a small right sided intraparenchymal hemorrhage. The patient received 2-3 L of IV saline during his ER stay. He immediately received 4 mg of IV Ativan which seemed to halt his seizures. He received 1 g of IV Keppra. He received multiple medications to help with sedation and to help control his blood pressure. He was given several doses of IV labetalol, he received IV propofol as a bolus and was placed on a drip. At one point, he received an IV diltiazem bolus and was placed on a diltiazem drip however, the drip was halted when the heart rate decreased to about 120. A repeat EKG demonstrated a sinus tachycardia, no acute ischemic change. Old infarcts were seen. The patient was eventually paralyzed with IV vecuronium. A second dose was given during his ER stay to maintain paralysis. He did receive some additional IV Ativan to help with sedation. Repeat ABG demonstrates a marked improvement. Of note, the patient's respiratory rate on the vent had been increased to 25. Total ventilation volume was around 500. With these vent settings, we demonstrated improvement in the acidosis. I spoke to the babbitter at [facility] in [place]. They accepted the patient in transfer however, we were unable to fly due to weather. Since the patient was unstable, ground transport was not felt feasible. I spoke with the babbitter at this hospital multiple times. The patient is going to be brought into our intensive care unit and can be flown to [facility] when a window opens in the weather. The [facility] hospitalist was consulted as well. I spoke to the family, I spent significant time in the room titrating medications and controlling the blood pressure and sedation. I do believe the patient has shown improvement in his vital signs. He seems to respond best to propofol IV as a bolus when his blood pressure spikes. Some of the hypertension I believe is related to agitation. The patient is critically ill. I expressed my concerns to the family. They seem to be in complete understanding. At this time, is not known if the bleeding caused the seizures, if the seizure led to the bleeding. Certainly, trauma from a fall could have caused the intracranial findings. Elevated blood pressure could have caused the intracranial bleeding. Hopefully, a better understanding of the events can be determined through his hospital stay. The coagulation dairy nutrition consultant was consulted. At her recommendation, the patient received IV vitamin K and IV K Centra. These medications were given to reverse the coagulopathy. Consults Time Called: 2015 Consulting Physician: ICU attending Returned Call: 2021 I discussed the patient's case with the ICU attending. He is in agreement with the plan and has no other suggestions at this time. He will see the patient upstairs. Additional Consults: Time Called: 2039 Consulted Physician: Dr. Hawkins, [facility] emergency medicine Returned Call: 2044 Additional Comments: I discussed the patient's case with Dr. Hawkins, [facility] emergency medicine. They have accepted the patient for transfer. We will get in contact with the [place] ICU. Time Called: 2049 Consulted Physician: Dr. Wilhelm [facility] babbitter Returned Call: 2109 Additional Comments: I discussed the patient's case with Dr[facility] Wilhelm [facility] [place] [facility]. Impression Primary Impression: Status epilepticus Additional Impressions: Hypertension Intracranial bleeding Respiratory failure Acidosis Tachycardia Critical Care I have personally spent greater than 80 minutes of critical care time in the direct management of this patient. This includes bedside care, interpretation of diagnostic studies, and testing, discussion with consultants, patient, and family members, and other required patient management activities. This 80 minutes is in excess of all separately billable procedures. Scribe Attestation The scribe's documentation has been prepared under my direction and personally reviewed by me in its entirety. I confirm that the note above accurately reflects all work, treatment, procedures, and medical decision making performed by me. Departure Information Dispostion Being Evaluated By Hospitalist Referrals Saumya Lala M.D. (PCP) Patient Instructions [facility] Problem Qualifiers
[2017-03-27] MEDS ORDERED: NiCARDipine IV 25 MG in SODIUM CHLORIDE 0.9% 250ML 240 ML IV PRN (22:17)
[2017-03-27 22:32] LABS: ISTAT ARTERIAL BLOOD GAS HCO3 17 meq/L (19-24); ISTAT ARTERIAL BLOOD GAS PCO2 34 mmHg (35-46); ISTAT ARTERIAL BLOOD GAS PO2 78 mmHg (80-95); ISTAT ARTERIAL BLOOD GAS pH 7.31 (7.35-7.45); ISTAT CARBON DIOXIDE 18 mEq/l (24-31); ISTAT HEMATOCRIT 43 % (42-52); ISTAT HEMOGLOBIN 14.6 g/dl (14.0-18.0); ISTAT SODIUM 132 mEq/L (135-144)
[2017-03-27 22:58] LABS: INR 1.3 (0.9-1.1)
[2017-03-27] MEDS ORDERED: METOPROLOL TARTRATE 1 MG/ML VIAL ONE (23:00)
[2017-03-27] MEDS ORDERED: ACETAMINOPHEN SOLN 500 MG/15.62 ML UDP PO PRN ×2 (23:15→23:45)
[2017-03-27] MEDS ORDERED: DILTIAZEM HCL 5 MG/ML 5 ML VIAL ONE (23:19)
[2017-03-27] MEDS ORDERED: DILTIAZEM HCL 5 MG/ML 5 ML VIAL IV STA (23:19)
[2017-03-27] MEDS ORDERED: MIDAZOLAM HCL 5 MG/ML 1 ML VIAL IV STA (23:19)
[2017-03-27] MEDS ORDERED: ACETAMINOPHEN 500 MG TAB PO ONE (23:23)
[2017-03-27] MEDS ORDERED: MIDAZOLAM 125MG/250ML D5W IV ONE (23:30)
[2017-03-28] VITALS (30 sets, daily range): BP systolic 47–183; BP diastolic 19–89; PULSE 87–131; TEMP 38.3–39.5; O2SAT 98–100
[2017-03-28 00:07] LABS: PHOSPHORUS 1.8 mg/dl (2.5-4.9)
[2017-03-28] MEDS ORDERED: DILTIAZEM BOLUS / DRIP IV STA (00:09)
[2017-03-28] MEDS ORDERED: VANCOMYCIN INJ 1,000 MG in SODIUM CHLORIDE 0.9% 250ML 250 ML IV ONE (00:14)
[2017-03-28] MEDS ORDERED: PIPERACILL/TAZOBAC IV 3.375 GM in DEXTROSE 5% 100ML 100 ML IV ONE (00:14)
[2017-03-28] MEDS ORDERED: DILTIAZEM HCL 5 MG/ML 5 ML VIAL IV SCH (00:15)
[2017-03-28] MEDS ORDERED: DILTIAZEM HCL INJ 125 MG in DEXTROSE 5% 100ML IV PRN (00:15)
[2017-03-28] MEDS ORDERED: SODIUM PHOSPHATE 3 MMOL/1 ML INFUSION IV STA (00:48)
[2017-03-28] MEDS ORDERED: VANCOMYCIN INJ 2,000 MG in SODIUM CHLORIDE 0.9% 500ML 500 ML IV STA (00:58)
[2017-03-28] MEDS ORDERED: PIPERACILL/TAZOBAC CONSULT ACTIVE PRN (01:00)
[2017-03-28] MEDS ORDERED: SODIUM PHOSPHATE INJ 21 MMOL in SODIUM CHLORIDE 0.9% 500ML 500 ML IV SCH (01:00)
[2017-03-28] MEDS ORDERED: VANCOMYCIN CONSULT ACTIVE PRN (01:24)
[2017-03-28] MEDS: METOPROLOL TARTRATE 1 MG/ML VIAL IV PRN ×2 (01:42→03:10)
--- NOTE | 2017-03-28 01:42 | Critical Care Consultation ---
Critical Care Consultation Date of Consultation: Mar 28, 2017. Attending Physician: Anna Duncan M.D. Reason for Consultation: external capsule and basal ganglia bleed with status epilepticus History of Present Illness This is a 56 yo male patient with multiple medical comorbidities described below who was noted to have A fin in November 2016 as part of cataract surgery workup. he was started on coumadin back then per his . Today the left to go to work at 7 am and when she returned at 630 pm shefound him on the floor in the bathroom covered with urine. No feces, no bleed, echymosis noted. She called EMS and then noted him to have generalized tonic clonic seizures. She has no eact duration but believes it is of order of minutes EMS reported to ED that he had 4 rounds of seizure acitivity. he was intubated and had a witnessed seizure in the ED. He received [address] Solomon and then 1 gm of Keppra. He was taked to CT of the head where he was found to have a 1.9x0.6x 2.5 cm bleed. He was given Kcentra as his INR was found to be 3.5 His lactate was 7 pH 7.05 with CK of 2400+ He was hyperventilated with adequate response of pH to 7.31, BP was noted to be widely fluctuating up to 199/120s. ED physician spared no effort to try to fly him to [facility] but given inclement weather they were unable to. He was admitted to manage in MICU. I started nicardepine drip and BP was controlled 100-130sysolic 70-80 diastolic. Within 30 minutes we held the nicardepine. he received total of 20 mg of metoprolol and 20 mg of cardizem to control HR which is now 115-130. A cardizem drip was started. At bedside I notied he was having myoclonic decerebrate like jerks and called in Dr Peña who referred me to Dr Choi but Dr Ross actually called back. I asked for continuous EEG for possible ongoing seizure and need for pentobarbital coma. However, about 30 minutes of changing him to versed 8 mg/hr and stopping propfol the decerebrate like jerks stopped. Dr Ross and Mr Johnson started a continuous EEG monitoring and it does not show any bursts at this time. patient had T 38.2 cultures urine and blood had been drawn Past Medical/Surgical History (1) Adjustment disorder with depressed mood (2) Alcohol abuse (3) Alcoholic liver damage (4) Atrial fibrillation (5) Cervical spinal stenosis (6) Dyslipidemia (7) Hypertension (8) Lung nodule (9) Sarcoidosis of lung (10) Seizure Surgical Problems: (1) History of appendectomy (2) History of cataract surgery (3) History of surgical removal of pilonidal cyst (4) S/P appendectomy (5) S/P thoracotomy (6) S/P tonsillectomy (7) S/P vasectomy Family History Cancer FH: CAD (coronary artery disease) FATHER GRANDFATHER Hypertension FATHER non contributory at this point. Social History Smoking Status: Never Smoker Drug Use: none Marital Status: Housing Status: lives with family Allergies Coded Allergies: Naltrexone (Verified Allergy, Unknown, Hallucinations, 03/27/17) ROSEANNE Inhibitors (Verified Adverse Reaction, Intermediate, Cough, 03/27/17) Home Medications Scheduled Alendronate Sodium (Fosamax), 70 MG PO WK Folic Acid (Folic Acid), 1 MG PO QAM Gabapentin (Neurontin), 100 MG PO TID Irbesartan (Avapro), 300 MG PO HS Magnesium Oxide (Mag-Ox), 400 MG PO DAILY Metoprolol Tartrate (Lopressor) (Lopressor), 100 MG PO BID Multivitamins (Daily Maryjane), 1 TAB PO DAILY Omeprazole (Prilosec), 20 MG PO DAILY Thiamine HCl (Vitamin B-1), 100 MG PO Q24H Warfarin Sod (Jantoven), 2.5 MG PO 6XWK Warfarin Sod (Jantoven), 5 MG PO SATURDAY Scheduled PRN Ibuprofen (Motrin), 400 MG PO BID PRN for Pain Oxycodone Hcl (Oxycodone Hcl), 1 CAP PO TID PRN for severe pain Current Inpatient Medications Current Inpatient Medications Medications (Trade) Dose Ordered Sig/Oliva Route Start Time Stop Time Status Last Admin Dose Admin Pantoprazole Sodium 40 mg/ Syringe 10 ml @ 5 mls/min DAILY IV 03/28/17 09:00 04/27/17 08:59 Nicardipine HCl 25 mg/Sodium Chloride 250 ml @ 2 mls/hr Q24H PRN IV 03/27/17 22:17 04/26/17 22:16 03/27/17 22:42 2 MLS/HR Sodium Bicarbonate 250 meq/Empty Bag 250 ml @ 10 mls/hr Q24H IV 03/27/17 22:30 04/26/17 22:29 Metoprolol Tartrate (Lopressor Iv) 5 mg Q5M PRN IV 03/27/17 23:00 04/26/17 22:59 Acetaminophen (Tylenol Soln) 1,000 mg Q6H PRN PO 03/27/17 23:45 04/26/17 23:44 Diltiazem HCl (Cardizem Bolus / Drip) 1 ea NOW STAT IV 03/28/17 00:09 03/28/17 00:10 UNV Diltiazem HCl (Cardizem Inj) 10 mg TODAY@0015 IV 03/28/17 00:15 03/28/17 00:16 Diltiazem HCl 125 mg/Dextrose 125 ml @ 0 mls/hr Q0M PRN IV 03/28/17 00:15 04/27/17 00:14 Review of Systems unable to provide sedated and intubated Physical Exam Date Time Temp Pulse Resp B/P (MAP) Pulse Ox O2 Delivery O2 Flow Rate FiO2 03/27/17 23:23 135 24 208/135 100 Mechanical Ventilator 03/27/17 22:36 50 03/27/17 22:19 125 25 147/97 96 03/27/17 22:16 125 25 147/97 96 03/27/17 22:11 130 25 199/130 97 03/27/17 22:06 127 25 180/125 95 03/27/17 22:01 127 27 150/110 97 03/27/17 21:56 125 25 149/95 96 03/27/17 21:51 122 19 141/96 95 03/27/17 21:51 122 25 141/96 95 Mechanical Ventilator 50 03/27/17 21:46 120 28 153/105 96 Mechanical Ventilator 50 03/27/17 21:41 37.3 119 25 150/96 96 Mechanical Ventilator 50 03/27/17 21:36 118 27 177/111 96 Mechanical Ventilator 50 03/27/17 21:31 117 25 173/111 98 Mechanical Ventilator 50 03/27/17 21:26 118 25 177/113 98 Mechanical Ventilator 50 03/27/17 21:21 119 25 180/111 98 Mechanical Ventilator 50 03/27/17 21:16 119 25 171/106 97 Mechanical Ventilator 50 03/27/17 21:11 122 25 145/97 96 Mechanical Ventilator 50 03/27/17 21:06 129 25 132/84 96 Mechanical Ventilator 50 03/27/17 21:02 138 25 200/125 95 Mechanical Ventilator 50 03/27/17 21:01 136 25 198/123 96 Mechanical Ventilator 50 03/27/17 20:57 132 25 178/105 96 Mechanical Ventilator 50 03/27/17 20:50 50 03/27/17 20:49 130 25 177/108 94 03/27/17 20:46 188/108 96 03/27/17 20:41 155/94 96 03/27/17 20:33 142 29 84/64 96 03/27/17 20:18 146 23 108/71 96 03/27/17 20:01 144 19 141/101 99 Mechanical Ventilator 03/27/17 19:46 148 20 125/77 100 Mechanical Ventilator 03/27/17 19:38 156 03/27/17 19:36 100 Mechanical Ventilator 50 03/27/17 19:36 98 Mechanical Ventilator 03/27/17 19:36 37.3 152 19 112/77 100 Mechanical Ventilator General Appearance: other (sedated intubated and stopped having myoclonic type activity) Head: normocephalic, atraumatic Eyes: sclerae normal, other (pupils constricted 3 mm but react to light bilaterally directly and consensually) ENT: normal ear exam, other (no JVD no LN) Neck: normal range of motion, trachea midline, no stridor Respiratory: clear to auscultation Cardiovasular: normal S1S2 Abdomen: non tender, hypoactive bowel sounds Back: normal inspection Upper Extremities: no edema Lower Extremities: no edema Neuro: other (non responsive had myoclonic like activity initially but with versed he became densely sedated and had minimal to no response to painful stimuli in all four extremities) Laboratory Results Last 24 Hours Test 03/27/17 19:37 03/27/17 19:46 03/27/17 19:48 03/27/17 19:53 White Blood Count 21.17 K/uL Red Blood Count 4.76 M/uL Hemoglobin 14.7 g/dL Hematocrit 43.8 % Mean Corpuscular Volume 92.0 fL Mean Corpuscular Hemoglobin 30.9 pg Mean Corpuscular Hemoglobin Concent 33.6 g/dl Platelet Count 419 K/uL Mean Platelet Volume 9.6 fL Neutrophils (%) (Auto) 89.0 % Lymphocytes (%) (Auto) 6.0 % Monocytes (%) (Auto) 4.3 % Eosinophils (%) (Auto) 0.0 % Basophils (%) (Auto) 0.0 % Neutrophils # (Auto) 18.84 K/uL Lymphocytes # (Auto) 1.27 K/uL Monocytes # (Auto) 0.90 K/uL Eosinophils # (Auto) 0.01 K/uL Basophils # (Auto) 0.01 K/uL RDW Standard Deviation 43.5 fL RDW Coefficient of Variation 12.9 % Immature Granulocyte % (Auto) 0.7 % Immature Granulocyte # (Auto) 0.14 K/uL Prothrombin Time 44.3 SECONDS Prothromb Time International Ratio 3.9 Activated Partial Thromboplast Time 42.1 SECONDS Partial Thromboplastin Ratio 1.6 Sodium Level 132 mmol/L Potassium Level 4.7 mmol/L Chloride Level 99 mmol/L Carbon Dioxide Level 17 mmol/L Anion Gap 16.0 mmol/L 21.0 mmol/L Blood Urea Nitrogen 10 mg/dl Creatinine 1.40 mg/dl Est Creatinine Clear Calc Drug Dose 61.7 ml/min Estimated GFR () 65.1 Estimated GFR (Non- 56.2 BUN/Creatinine Ratio 7.1 Random Glucose 161 mg/dl Calcium Level 7.5 mg/dl Magnesium Level 2.1 mg/dl Total Bilirubin 0.2 mg/dl Aspartate Amino Transf (AST/SGOT) 56 U/L Alanine Aminotransferase (ALT/SGPT) 34 U/L Alkaline Phosphatase 78 U/L Total Creatine Kinase 2496 U/L Troponin I 0.069 ng/ml Total Protein 8.0 gm/dl Albumin 3.7 gm/dl Globulin 4.3 gm/dl Albumin/Globulin Ratio 0.9 Thyroid Stimulating Hormone (TSH) 1.160 uIu/ml Ethyl Alcohol mg/dL < 3.0 mg/dl Bedside Troponin I 0.040 ng/ml Bedside Hemoglobin 16.0 g/dl Bedside Hematocrit 47 % Bedside Sodium 132 mEq/L Bedside Potassium 4.7 mEq/L Bedside Chloride 99 mEq/L Bedside Total CO2 17 mEq/l Bedside Blood Urea Nitrogen 10 mg/dl Bedside Creatinine 1.2 mg/dl Bedside Glucose (other) 163 mg/dl Bedside Ionized Calcium (Priti) 1.09 mmol/l Bedside Blood Gas pH (LAB) 7.05 Bedside Blood Gas pCO2 (LAB) 59 mmHg Bedside Blood Gas pO2 (LAB) 289 mmHg Bedside Blood Gas HCO3 (LAB) 16 meq/L Bedside Blood Gas Total CO2 18 mEq/l Bedside Blood Gas Base Excess (LAB) -14.0 meq/L Bedside Blood Gas O2 Saturation 100.0 % Test 03/27/17 20:10 03/27/17 20:14 03/27/17 20:36 03/27/17 22:16 Urine Color YELLOW Urine Appearance CLOUDY Urine pH 5.0 Urine Specific [place] 1.020 Urine Protein 2+ Urine Glucose (UA) NEG Urine Ketones NEG Urine Occult Blood 3+ Urine Nitrite NEG Urine Bilirubin NEG Urine Urobilinogen NEG Urine Leukocyte Esterase NEG Urine WBC (Auto) 1-5 /hpf Urine RBC (Auto) 0-4 /hpf Urine Hyaline Casts (Auto) /lpf Urine Epithelial Cells (Auto) >30 /lpf Urine Bacteria (Auto) NEG Urine Pathogenic Casts 0-3 GRANULAR CASTS /lpf Urine Yeast (Auto) Urine Opiates Screen NEG Urine Methadone, Qualitative NEG Urine Barbiturates NEG Urine Phencyclidine (PCP) Level NEG Ur Amphetamine/Methamphetamine NEG MDMA (Ecstasy) Screen NEG Urine Benzodiazepines Screen POS Urine Cocaine Metabolite NEG Urine Marijuana (THC) NEG Lactic Acid Level 7.1 mmol/L Bedside Prothrombin Time INR 3.5 Bedside Hemoglobin 14.6 g/dl Bedside Hematocrit 43 % Bedside Blood Gas pH (LAB) 7.31 Bedside Blood Gas pCO2 (LAB) 34 mmHg Bedside Blood Gas pO2 (LAB) 78 mmHg Bedside Blood Gas HCO3 (LAB) 17 meq/L Bedside Blood Gas Total CO2 18 mEq/l Bedside Blood Gas Base Excess (LAB) -9.0 meq/L Bedside Blood Gas O2 Saturation 94.0 % Bedside Sodium 132 mEq/L Bedside Potassium 4.0 mEq/L Test 03/27/17 22:42 03/27/17 23:13 Prothrombin Time 14.0 SECONDS Prothromb Time International Ratio 1.3 Phosphorus Level 1.8 mg/dl Total Creatine Kinase 5421 U/L Assessment & Plan 56 yo male with above medical comorbidities admitted with IC bleed iatrogenic coagulopathy and status epilepticus The patient was acidotic and has elevated CK He is intubated and sedated Continue Keppra Continue sedation with versed rather than propofol continuous EEG monitoring repeat CT scan at 1230 am showed no significant increase in the size of the basal ganglia bleed 1.6x0.7x2.5 cm ICH score of 2 (GCS) otherwise, age <80 no intraventricular bleed and size <30 ml his mortality risk is around or <24% monitor in MICU with neuro checks repeat CT in 24-48 hours continue MV RR24, TV 500 PEEP 5 and FiO2 40% ABG in am will add albuterol and ipratropium cardizem drip with PRN metoprolol to achieve a HR <110 target SBP <140. We held the nicardipine drip hold coumadin received vitamin K repeat INR 1.3 from 3.5 post Kcentra ID cultures sent vancomycin and zosyn on board for possible aspiration in nosocomial setting tylenol to normalize T around 36 centigrade DVT prophylaxis with mechanical SCDs NPO for now placed A line. Bashir in and needed for I/O sugar is controlled He will be transferred to neurosurgical tertiary care center in am. I spent a total of 65 minutes of CC time exclusive of procedure managing him this am.
--- NOTE | 2017-03-28 02:17 | Neurology Consultation ---
Neurology Consultation Date of Consultation: Mar 28, 2017. Attending Physician: Anna Duncan M.D. Primary Care Physician: Saumya Lala M.D. Reason for Consultation: Seizure activity History of Present Illness Source: hospital records The patient is a 56-year-old male who was found unresponsive by his lying in his urine. EMS were summoned and observed several generalized seizure-like episodes. He has not regained consciousness. The patient was administered paralytics and placed on the mechanical ventilator in the emergency department. He has been given Keppra for presumed status epilepticus. He does not have a history of seizure disorder. Past medical history is notable for atrial fibrillation, currently prescribed warfarin, alcohol abuse, cirrhosis, and sarcoidosis. A CT of the head completed at 8:25 PM revealed a 1.9 x 0.6 cm acute hemorrhage within the right basal ganglia with mild associated edema, without associated mass effect. The finding is potentially consistent with a hypertensive hemorrhage. I reviewed the radiologist's interpretation as well as the images pertaining to this test and agree. This patient's anticoagulation was reversed with vitamin K. I had discussed this patient's case with the wash mill operator as well who is concerned about persistent seizure activity versus decerebrate posturing. He had observed episodes of extension of both upper limbs with associated pronation occurring in rapid succession. These abnormal movements resolved, however, after administration of Versed. A follow-up CT of the head completed at 12:35 AM appears essentially unchanged from the previous study done at 8:25 PM. Intensivists indicates that he has attempted to have the patient transferred to a tertiary center with neurosurgical backup. However, poor flight conditions have made this transfer impossible. The patient was also considered to be too unstable for a ground transfer. The patient was subsequently placed on the continuous EEG monitor. There is evidence of generalized slowing. There is no evidence of seizure activity at this time per my review. The patient has not exhibited any further seizure-like movements. Past Medical/Surgical History Medical Problems: (1) Acidosis Status: Acute (2) Alcohol intoxication Status: Acute (3) Atrial fibrillation Status: Acute (4) Hypomagnesemia Status: Acute (5) Intracranial bleeding Status: Acute (6) Respiratory failure Status: Acute (7) Status epilepticus Status: Acute (8) Tachycardia Status: Acute (9) Weakness Status: Acute Family History There is a family history of hypertension in the father Social History Smoking Status: Never smoker Drug Use: none Marital Status: Housing Status: lives with family Allergies Coded Allergies: Naltrexone (Verified Allergy, Unknown, Hallucinations, 03/27/17) ROSEANNE Inhibitors (Verified Adverse Reaction, Intermediate, Cough, 03/27/17) Current Inpatient Medications Current Inpatient Medications Medications (Trade) Dose Ordered Sig/Oliva Route Start Time Stop Time Status Last Admin Dose Admin Pantoprazole Sodium 40 mg/ Syringe 10 ml @ 5 mls/min DAILY IV 03/28/17 09:00 04/27/17 08:59 Nicardipine HCl 25 mg/Sodium Chloride 250 ml @ 2 mls/hr Q24H PRN IV 03/27/17 22:17 04/26/17 22:16 03/27/17 22:42 2 MLS/HR Sodium Bicarbonate 250 meq/Empty Bag 250 ml @ 10 mls/hr Q24H IV 03/27/17 22:30 04/26/17 22:29 Metoprolol Tartrate (Lopressor Iv) 5 mg Q5M PRN IV 03/27/17 23:00 04/26/17 22:59 Acetaminophen (Tylenol Soln) 1,000 mg Q6H PRN PO 03/27/17 23:45 04/26/17 23:44 Diltiazem HCl 125 mg/Dextrose 125 ml @ 0 mls/hr Q0M PRN IV 03/28/17 00:15 04/27/17 00:14 03/28/17 00:45 5 MLS/HR Piperacillin Sod/ Tazobactam Sod 3.375 gm/Dextrose 115 ml @ 28 mls/hr Q8H IV 03/28/17 06:00 04/04/17 05:59 Vancomycin HCl (Consult) 1 ea DAILY PRN N/A 03/28/17 01:24 04/27/17 01:23 Sodium Phosphate 21 mmol/Sodium Chloride 507 ml @ 88 mls/hr TODAY@0100 IV 03/28/17 01:00 03/28/17 06:46 Vancomycin HCl 2000 mg/Sodium Chloride 540 ml @ 200 mls/hr NOW STAT IV 03/28/17 00:58 03/28/17 03:39 03/28/17 01:13 200 MLS/HR Piperacillin Sod/ Tazobactam Sod (Consult) 1 ea UD PRN N/A 03/28/17 01:00 04/27/17 00:59 Review of Systems Unable to obtain a review of systems as the patient is unresponsive Physical Exam Vital Signs (Past 24 Hrs): Date Time Temp Pulse Resp B/P (MAP) Pulse Ox O2 Delivery O2 Flow Rate FiO2 03/27/17 23:23 135 24 208/135 100 Mechanical Ventilator 03/27/17 23:00 122 03/27/17 22:36 50 03/27/17 22:19 125 25 147/97 96 03/27/17 22:16 125 25 147/97 96 03/27/17 22:11 130 25 199/130 97 03/27/17 22:06 127 25 180/125 95 03/27/17 22:01 127 27 150/110 97 03/27/17 21:56 125 25 149/95 96 03/27/17 21:51 122 19 141/96 95 03/27/17 21:51 122 25 141/96 95 Mechanical Ventilator 50 03/27/17 21:46 120 28 153/105 96 Mechanical Ventilator 50 03/27/17 21:41 37.3 119 25 150/96 96 Mechanical Ventilator 50 03/27/17 21:36 118 27 177/111 96 Mechanical Ventilator 50 03/27/17 21:31 117 25 173/111 98 Mechanical Ventilator 50 03/27/17 21:26 118 25 177/113 98 Mechanical Ventilator 50 03/27/17 21:21 119 25 180/111 98 Mechanical Ventilator 50 03/27/17 21:16 119 25 171/106 97 Mechanical Ventilator 50 03/27/17 21:11 122 25 145/97 96 Mechanical Ventilator 50 03/27/17 21:06 129 25 132/84 96 Mechanical Ventilator 50 03/27/17 21:02 138 25 200/125 95 Mechanical Ventilator 50 03/27/17 21:01 136 25 198/123 96 Mechanical Ventilator 50 03/27/17 20:57 132 25 178/105 96 Mechanical Ventilator 50 03/27/17 20:50 50 03/27/17 20:49 130 25 177/108 94 03/27/17 20:46 188/108 96 03/27/17 20:41 155/94 96 03/27/17 20:33 142 29 84/64 96 03/27/17 20:18 146 23 108/71 96 03/27/17 20:01 144 19 141/101 99 Mechanical Ventilator 03/27/17 19:46 148 20 125/77 100 Mechanical Ventilator 03/27/17 19:38 156 03/27/17 19:36 100 Mechanical Ventilator 50 03/27/17 19:36 98 Mechanical Ventilator 03/27/17 19:36 37.3 152 19 112/77 100 Mechanical Ventilator A complete neurological examination cannot be completed as this patient is unresponsive, sedated, and on the mechanical ventilator. The patient does not respond to voice or noxious stimulation. He does not exhibit any abnormal spontaneous movements. Pupils are both 3 mm, round, and react to light. There is no gaze preference. There is no gaze divergence. Corneal reflexes and gag reflex are silent at this time. Tone is diffusely flaccid. The patient does not withdraw his limbs to stimulation. Plantar responses silent bilaterally. Laboratory Results Past 24 Hours: 03/27/17 19:37 Red Blood Count 4.76, Mean Corpuscular Volume 92.0, Mean Corpuscular Hemoglobin 30.9, Mean Corpuscular Hemoglobin Concent 33.6, Mean Platelet Volume 9.6, Neutrophils (%) (Auto) 89.0, Lymphocytes (%) (Auto) 6.0, Monocytes (%) (Auto) 4.3, Eosinophils (%) (Auto) 0.0, Basophils (%) (Auto) 0.0, Neutrophils # (Auto) 18.84, Lymphocytes # (Auto) 1.27, Monocytes # (Auto) 0.90, Eosinophils # (Auto) 0.01, Basophils # (Auto) 0.01 03/27/17 19:37 Test 03/27/17 19:37 03/27/17 19:46 03/27/17 19:48 03/27/17 20:10 White Blood Count 21.17 K/uL (4.8-10.8) Red Blood Count 4.76 M/uL (4.7-6.1) Hemoglobin 14.7 g/dL (14.0-18.0) Hematocrit 43.8 % (42-52) Mean Corpuscular Volume 92.0 fL (80-100) Mean Corpuscular Hemoglobin 30.9 pg (25-34) Mean Corpuscular Hemoglobin Concent 33.6 g/dl (32-36) Platelet Count 419 K/uL (130-400) Mean Platelet Volume 9.6 fL (7.4-10.4) Neutrophils (%) (Auto) 89.0 % Lymphocytes (%) (Auto) 6.0 % Monocytes (%) (Auto) 4.3 % Eosinophils (%) (Auto) 0.0 % Basophils (%) (Auto) 0.0 % Neutrophils # (Auto) 18.84 K/uL (1.4-6.5) Lymphocytes # (Auto) 1.27 K/uL (1.2-3.4) Monocytes # (Auto) 0.90 K/uL (0.11-0.59) Eosinophils # (Auto) 0.01 K/uL (0-0.5) Basophils # (Auto) 0.01 K/uL (0-0.2) RDW Standard Deviation 43.5 fL (36.4-46.3) RDW Coefficient of Variation 12.9 % (11.5-14.5) Immature Granulocyte % (Auto) 0.7 % Immature Granulocyte # (Auto) 0.14 K/uL (0.00-0.02) Activated Partial Thromboplast Time 42.1 SECONDS (21.0-31.0) Partial Thromboplastin Ratio 1.6 Est Creatinine Clear Calc Drug Dose 61.7 ml/min Estimated GFR () 65.1 Estimated GFR (Non- 56.2 BUN/Creatinine Ratio 7.1 (10-20) Calcium Level 7.5 mg/dl (8.5-10.1) Magnesium Level 2.1 mg/dl (1.8-2.4) Total Bilirubin 0.2 mg/dl (0.2-1) Aspartate Amino Transf (AST/SGOT) 56 U/L (15-37) Alanine Aminotransferase (ALT/SGPT) 34 U/L (12-78) Alkaline Phosphatase 78 U/L (45-117) Troponin I 0.069 ng/ml (0-0.045) Total Protein 8.0 gm/dl (6.4-8.2) Albumin 3.7 gm/dl (3.4-5.0) Globulin 4.3 gm/dl (2.5-4.0) Albumin/Globulin Ratio 0.9 (0.9-2) Thyroid Stimulating Hormone (TSH) 1.160 uIu/ml (0.300-4.500) Ethyl Alcohol mg/dL < 3.0 mg/dl (0-3) Bedside Troponin I 0.040 ng/ml (0-0.045) Bedside Chloride 99 mEq/L (101-112) Bedside Total CO2 17 mEq/l (24-31) Anion Gap 21.0 mmol/L (16-25) Bedside Blood Urea Nitrogen 10 mg/dl (7-18) Bedside Creatinine 1.2 mg/dl (0.6-1.3) Bedside Glucose (other) 163 mg/dl (70-99) Bedside Ionized Calcium (Priti) 1.09 mmol/l (1.12-1.32) Urine Color YELLOW Urine Appearance CLOUDY (CLEAR) Urine pH 5.0 (4.5-7.5) Urine Specific [place] 1.020 (1.000-1.030) Urine Protein 2+ (NEG) Urine Glucose (UA) NEG (NEG) Urine Ketones NEG (NEG) Urine Occult Blood 3+ (NEG) Urine Nitrite NEG (NEG) Urine Bilirubin NEG (NEG) Urine Urobilinogen NEG (NEG) Urine Leukocyte Esterase NEG (NEG) Urine WBC (Auto) 1-5 /hpf (0-5) Urine RBC (Auto) 0-4 /hpf (0-4) Urine Hyaline Casts (Auto) /lpf (0-5) Urine Epithelial Cells (Auto) >30 /lpf (0-5) Urine Bacteria (Auto) NEG (NEG) Urine Pathogenic Casts 0-3 GRANULAR CASTS /lpf (0) Urine Yeast (Auto) (NONE PRSENT) Urine Opiates Screen NEG (NEG) Urine Methadone, Qualitative NEG (NEG) Urine Barbiturates NEG (NEG) Urine Phencyclidine (PCP) Level NEG (NEG) Ur Amphetamine/Methamphetamine NEG (NEG) MDMA (Ecstasy) Screen NEG (NEG) Urine Benzodiazepines Screen POS (NEG) Urine Cocaine Metabolite NEG (NEG) Urine Marijuana (THC) NEG (NEG) Test 03/27/17 20:14 03/27/17 20:36 03/27/17 22:16 03/27/17 22:42 Lactic Acid Level 7.1 mmol/L (0.4-2.0) Bedside Prothrombin Time INR 3.5 (0.9-1.1) Bedside Hemoglobin 14.6 g/dl (14.0-18.0) Bedside Hematocrit 43 % (42-52) Bedside Blood Gas pH (LAB) 7.31 (7.35-7.45) Bedside Blood Gas pCO2 (LAB) 34 mmHg (35-46) Bedside Blood Gas pO2 (LAB) 78 mmHg (80-95) Bedside Blood Gas HCO3 (LAB) 17 meq/L (19-24) Bedside Blood Gas Total CO2 18 mEq/l (24-31) Bedside Blood Gas Base Excess (LAB) -9.0 meq/L (-9-1.8) Bedside Blood Gas O2 Saturation 94.0 % (90-95) Bedside Sodium 132 mEq/L (135-144) Bedside Potassium 4.0 mEq/L (3.3-5.0) Prothrombin Time 14.0 SECONDS (9.0-12.0) Prothromb Time International Ratio 1.3 (0.9-1.1) Test 03/27/17 23:13 Phosphorus Level 1.8 mg/dl (2.5-4.9) Total Creatine Kinase 5421 U/L (39-308) Impression Acute right basal ganglia hemorrhage in a 56-year-old male with a history of atrial fibrillation who had been prescribed warfarin. His anticoagulation has been reversed. The hemorrhage appears stable on a follow-up CT of the head completed about 4 hours later. The reported seizure activity has ceased with treatment. He remains unresponsive but appears to be clinically stable. Plan Case again discussed with the wash mill operator at bedside. He will remain on the continuous video EEG monitoring overnight. I have not recommended any changes in his therapy at this time. I would continue with Keppra 1000 mg IV every 12 hours. This patient will need to be transferred to a tertiary center with comprehensive neuro critical care services when such expedited travel may be done safely as dictated by the weather. Greater than 50% of today's 70 minute encounter was spent coordinating care with the wash mill operator and instructor adjunct surgical technician.
--- NOTE | 2017-03-28 03:06 | History and Physical ---
History & Physical Date & Time of Service: Mar 28, 2017 at 02:09 Chief Complaint: Seizure Primary Care Physician: Saumya Lala M.D. History of Present Illness Source: family, clinic records, hospital records 56 year old male with history of Atrial Fibrillation on coumadin, Hypertension, other problems noted below presenting with unresponsiveness. Follows with Dr. Lala for PCP and Dr. Harrison for Special Police Officer. History obtained from patient's at bedside as patient is intubated. Per his , patient was feeling fine the past few days, although he reports to her that his blood pressure has not been under good control lately and that his medications are being adjusted by his doctors. Patient was last seen by his this morning before she went to work. Upon arriving this evening from work, patient's found him in the bathroom, unresponsive, incontinent of urine, and was breathing heavily. She then called 911. En route to the ER, patient was noted to have seizures and was given Ativan and Versed, eventually intubated. At the ER, patient was still having continuous seziures, prompting Propofol drip and Keppra to be started. He was also noted be hypertensive, and was given Labetalol. CT head revealed : 1.9 x 0.6 cm acute intraparenchymal hematoma within the right external capsule and basal ganglia. Mild associated edema with no significant mass effect. This may reflect a hypertensive hemorrhage. INR was found to be 3.5 and patient was given Vit K. On my exam, patient is intubated, not in distress, no signs of active seizure. Pupils ~3mm equal, reactive to light. Past Medical/Surgical History Medical Problems: (1) Adjustment disorder with depressed mood Status: Chronic (2) Alcohol abuse Status: Chronic (3) Alcoholic liver damage Status: Chronic (4) Atrial fibrillation Status: Chronic (5) Cervical spinal stenosis Status: Chronic (6) Dyslipidemia Status: Chronic (7) Lung nodule Status: Chronic (8) Sarcoidosis of lung Status: Chronic Surgical Problems: (1) History of cataract surgery Status: Chronic (2) History of surgical removal of pilonidal cyst Status: Chronic (3) S/P appendectomy Status: Chronic (4) S/P thoracotomy Permanent Comment: 12/31/12- mediastinoscopy, biopsy of right supraclavicular node, biopsy anterior tracheal node, biopsy right 2R node, wedge resection left upper lobe x 2 with lesions Status: Chronic (5) S/P tonsillectomy Status: Chronic (6) S/P vasectomy Status: Chronic Family History Cancer FH: CAD (coronary artery disease) FATHER GRANDFATHER Hypertension FATHER Social History Smoking Status: Never Smoker Drug Use: none Marital Status: Housing status: lives with significant other Immunizations History of Influenza Vaccine: Yes Influenza Vaccine Date: May 07, 2013 History of Tetanus Vaccine?: Yes Tetanus Immunization Date: Dec 31, 2010 History of Pneumococcal: No History of Hepatitis B Vaccine: No Allergies Coded Allergies: Naltrexone (Verified Allergy, Unknown, Hallucinations, 03/27/17) ROSEANNE Inhibitors (Verified Adverse Reaction, Intermediate, Cough, 03/27/17) Home Medications Scheduled Alendronate Sodium (Fosamax), 70 MG PO WK Folic Acid (Folic Acid), 1 MG PO QAM Gabapentin (Neurontin), 100 MG PO TID Irbesartan (Avapro), 300 MG PO HS Magnesium Oxide (Mag-Ox), 400 MG PO DAILY Metoprolol Tartrate (Lopressor) (Lopressor), 100 MG PO BID Multivitamins (Daily Maryjane), 1 TAB PO DAILY Omeprazole (Prilosec), 20 MG PO DAILY Thiamine HCl (Vitamin B-1), 100 MG PO Q24H Warfarin Sod (Jantoven), 2.5 MG PO 6XWK Warfarin Sod (Jantoven), 5 MG PO SATURDAY Scheduled PRN Ibuprofen (Motrin), 400 MG PO BID PRN for Pain Oxycodone Hcl (Oxycodone Hcl), 1 CAP PO TID PRN for severe pain Review of Systems please refer to above difficult to assess fully as patient intubated Physical Exam Vital Signs Date Time Temp Pulse Resp B/P (MAP) Pulse Ox O2 Delivery O2 Flow Rate FiO2 03/28/17 01:42 133 171/63 03/27/17 23:23 135 24 208/135 100 Mechanical Ventilator 03/27/17 23:00 122 03/27/17 22:36 50 03/27/17 22:19 125 25 147/97 96 03/27/17 22:16 125 25 147/97 96 03/27/17 22:11 130 25 199/130 97 03/27/17 22:06 127 25 180/125 95 03/27/17 22:01 127 27 150/110 97 03/27/17 21:56 125 25 149/95 96 03/27/17 21:51 122 19 141/96 95 03/27/17 21:51 122 25 141/96 95 Mechanical Ventilator 50 03/27/17 21:46 120 28 153/105 96 Mechanical Ventilator 50 03/27/17 21:41 37.3 119 25 150/96 96 Mechanical Ventilator 50 03/27/17 21:36 118 27 177/111 96 Mechanical Ventilator 50 03/27/17 21:31 117 25 173/111 98 Mechanical Ventilator 50 03/27/17 21:26 118 25 177/113 98 Mechanical Ventilator 50 03/27/17 21:21 119 25 180/111 98 Mechanical Ventilator 50 03/27/17 21:16 119 25 171/106 97 Mechanical Ventilator 50 03/27/17 21:11 122 25 145/97 96 Mechanical Ventilator 50 03/27/17 21:06 129 25 132/84 96 Mechanical Ventilator 50 03/27/17 21:02 138 25 200/125 95 Mechanical Ventilator 50 03/27/17 21:01 136 25 198/123 96 Mechanical Ventilator 50 03/27/17 20:57 132 25 178/105 96 Mechanical Ventilator 50 03/27/17 20:50 50 03/27/17 20:49 130 25 177/108 94 03/27/17 20:46 188/108 96 03/27/17 20:41 155/94 96 03/27/17 20:33 142 29 84/64 96 03/27/17 20:18 146 23 108/71 96 03/27/17 20:01 144 19 141/101 99 Mechanical Ventilator 03/27/17 19:46 148 20 125/77 100 Mechanical Ventilator 03/27/17 19:38 156 03/27/17 19:36 100 Mechanical Ventilator 50 03/27/17 19:36 98 Mechanical Ventilator 03/27/17 19:36 37.3 152 19 112/77 100 Mechanical Ventilator General Appearance: no apparent distress, + pertinent finding (intubated, sedated) Head: normocephalic, atraumatic Eyes: normal inspection, PERRL ENT: normal ENT inspection, + pertinent finding (intubated) Neck: no adenopathy, thyroid normal, no JVD, trachea midline Respiratory/Chest: lungs clear, normal breath sounds, no respiratory distress, no accessory muscle use Cardiovascular: no edema, no JVD, no murmur, + tachycardia Abdomen/GI: normal bowel sounds, soft, no organomegaly Extremities/Musculoskelatal: normal inspection, no calf tenderness, no pedal edema Neurologic/Psych: + pertinent finding (pupils equal round reactive to light) Skin: normal color, warm/dry, no rash Lymphatic: no adenopathy Diagnostics Laboratory Results Results Past 24 Hours Test 03/27/17 19:37 03/27/17 19:46 03/27/17 19:48 03/27/17 19:53 Range/Units White Blood Count 21.17 4.8-10.8 K/uL Red Blood Count 4.76 4.7-6.1 M/uL Hemoglobin 14.7 14.0-18.0 g/dL Hematocrit 43.8 42-52 % Mean Corpuscular Volume 92.0 80-100 fL Mean Corpuscular Hemoglobin 30.9 25-34 pg Mean Corpuscular Hemoglobin Concent 33.6 32-36 g/dl Platelet Count 419 130-400 K/uL Mean Platelet Volume 9.6 7.4-10.4 fL Neutrophils (%) (Auto) 89.0 % Lymphocytes (%) (Auto) 6.0 % Monocytes (%) (Auto) 4.3 % Eosinophils (%) (Auto) 0.0 % Basophils (%) (Auto) 0.0 % Neutrophils # (Auto) 18.84 1.4-6.5 K/uL Lymphocytes # (Auto) 1.27 1.2-3.4 K/uL Monocytes # (Auto) 0.90 0.11-0.59 K/uL Eosinophils # (Auto) 0.01 0-0.5 K/uL Basophils # (Auto) 0.01 0-0.2 K/uL RDW Standard Deviation 43.5 36.4-46.3 fL RDW Coefficient of Variation 12.9 11.5-14.5 % Immature Granulocyte % (Auto) 0.7 % Immature Granulocyte # (Auto) 0.14 0.00-0.02 K/uL Prothrombin Time 44.3 9.0-12.0 SECONDS Prothromb Time International Ratio 3.9 0.9-1.1 Activated Partial Thromboplast Time 42.1 21.0-31.0 SECONDS Partial Thromboplastin Ratio 1.6 Sodium Level 132 136-145 mmol/L Potassium Level 4.7 3.5-5.1 mmol/L Chloride Level 99 98-107 mmol/L Carbon Dioxide Level 17 21-32 mmol/L Anion Gap 16.0 21.0 16-25 mmol/L Blood Urea Nitrogen 10 7-18 mg/dl Creatinine 1.40 0.60-1.40 mg/dl Est Creatinine Clear Calc Drug Dose 61.7 ml/min Estimated GFR () 65.1 Estimated GFR (Non- 56.2 BUN/Creatinine Ratio 7.1 10-20 Random Glucose 161 70-99 mg/dl Calcium Level 7.5 8.5-10.1 mg/dl Magnesium Level 2.1 1.8-2.4 mg/dl Total Bilirubin 0.2 0.2-1 mg/dl Aspartate Amino Transf (AST/SGOT) 56 15-37 U/L Alanine Aminotransferase (ALT/SGPT) 34 12-78 U/L Alkaline Phosphatase 78 45-117 U/L Total Creatine Kinase 2496 39-308 U/L Troponin I 0.069 0-0.045 ng/ml Total Protein 8.0 6.4-8.2 gm/dl Albumin 3.7 3.4-5.0 gm/dl Globulin 4.3 2.5-4.0 gm/dl Albumin/Globulin Ratio 0.9 0.9-2 Thyroid Stimulating Hormone (TSH) 1.160 0.300-4.500 uIu/ml Ethyl Alcohol mg/dL < 3.0 0-3 mg/dl Bedside Troponin I 0.040 0-0.045 ng/ml Bedside Hemoglobin 16.0 14.0-18.0 g/dl Bedside Hematocrit 47 42-52 % Bedside Sodium 132 135-144 mEq/L Bedside Potassium 4.7 3.3-5.0 mEq/L Bedside Chloride 99 101-112 mEq/L Bedside Total CO2 17 24-31 mEq/l Bedside Blood Urea Nitrogen 10 7-18 mg/dl Bedside Creatinine 1.2 0.6-1.3 mg/dl Bedside Glucose (other) 163 70-99 mg/dl Bedside Ionized Calcium (Priti) 1.09 1.12-1.32 mmol/l Bedside Blood Gas pH (LAB) 7.05 7.35-7.45 Bedside Blood Gas pCO2 (LAB) 59 35-46 mmHg Bedside Blood Gas pO2 (LAB) 289 80-95 mmHg Bedside Blood Gas HCO3 (LAB) 16 19-24 meq/L Bedside Blood Gas Total CO2 18 24-31 mEq/l Bedside Blood Gas Base Excess (LAB) -14.0 -9-1.8 meq/L Bedside Blood Gas O2 Saturation 100.0 90-95 % Test 03/27/17 20:10 03/27/17 20:14 03/27/17 20:36 03/27/17 22:16 Range/Units Urine Color YELLOW Urine Appearance CLOUDY CLEAR Urine pH 5.0 4.5-7.5 Urine Specific [place] 1.020 1.000-1.030 Urine Protein 2+ NEG Urine Glucose (UA) NEG NEG Urine Ketones NEG NEG Urine Occult Blood 3+ NEG Urine Nitrite NEG NEG Urine Bilirubin NEG NEG Urine Urobilinogen NEG NEG Urine Leukocyte Esterase NEG NEG Urine WBC (Auto) 1-5 0-5 /hpf Urine RBC (Auto) 0-4 0-4 /hpf Urine Hyaline Casts (Auto) 0-5 /lpf Urine Epithelial Cells (Auto) >30 0-5 /lpf Urine Bacteria (Auto) NEG NEG Urine Pathogenic Casts 0-3 GRANULAR CASTS 0 /lpf Urine Yeast (Auto) NONE PRSENT Urine Opiates Screen NEG NEG Urine Methadone, Qualitative NEG NEG Urine Barbiturates NEG NEG Urine Phencyclidine (PCP) Level NEG NEG Ur Amphetamine/Methamphetamine NEG NEG MDMA (Ecstasy) Screen NEG NEG Urine Benzodiazepines Screen POS NEG Urine Cocaine Metabolite NEG NEG Urine Marijuana (THC) NEG NEG Lactic Acid Level 7.1 0.4-2.0 mmol/L Bedside Prothrombin Time INR 3.5 0.9-1.1 Bedside Hemoglobin 14.6 14.0-18.0 g/dl Bedside Hematocrit 43 42-52 % Bedside Blood Gas pH (LAB) 7.31 7.35-7.45 Bedside Blood Gas pCO2 (LAB) 34 35-46 mmHg Bedside Blood Gas pO2 (LAB) 78 80-95 mmHg Bedside Blood Gas HCO3 (LAB) 17 19-24 meq/L Bedside Blood Gas Total CO2 18 24-31 mEq/l Bedside Blood Gas Base Excess (LAB) -9.0 -9-1.8 meq/L Bedside Blood Gas O2 Saturation 94.0 90-95 % Bedside Sodium 132 135-144 mEq/L Bedside Potassium 4.0 3.3-5.0 mEq/L Test 03/27/17 22:42 03/27/17 23:13 Range/Units Prothrombin Time 14.0 9.0-12.0 SECONDS Prothromb Time International Ratio 1.3 0.9-1.1 Phosphorus Level 1.8 2.5-4.9 mg/dl Total Creatine Kinase 5421 39-308 U/L Microbiology Results 03/27/17 Blood Culture, Received Pending 03/27/17 Blood Culture, Received Pending 03/27/17 MRSA DNA Surveillance Screen, Received Pending 03/27/17 Urine Culture, Received Pending Diagnostic Radiology CT OF THE HEAD WITHOUT CONTRAST CLINICAL HISTORY: EVALUATE ALTERED MENTAL STATUS/WEAKNESS COMPARISON STUDY: Head CT January 05, 2017. TECHNIQUE: Helical axial images of the head were obtained without IV contrast. Automated exposure control was utilized for the study. A dose lowering technique was utilized adhering to the principles of ALARA. FINDINGS: Note is made of a 1.9 x 0.6 cm acute hematoma within the right external capsule with possible involvement of the right basal ganglia. This is new since exam of January 05, 2017. This exam is moderately compromised by motion artifact but no additional sites of intracranial hemorrhage are identified. Ventricular system is stable. The basilar cisterns are patent. There are no extra axial collections. Sensitivity for detection of calvarial fractures is diminished on this exam but none are identified. IMPRESSION: 1.9 x 0.6 cm acute intraparenchymal hematoma within the right external capsule and basal ganglia. Mild associated edema with no significant mass effect. This may reflect a hypertensive hemorrhage. Findings discussed with Dr. Solomon at time of dictation.. EKG sinus tach, prolonged qt Impression Assessment and Plan 56 year old male with history of Atrial Fibrillation on coumadin, Hypertension, other problems noted below presenting with unresponsiveness. INTRACRANIAL HEMORRHAGE- RIGHT EXTERNAL CAPSULE, BASAL GANGLIA CHRONIC ANTICOAGULATION WITH COUMADIN - INR 3.5 , given Vitamin K IV INR 1.3 - repeat CT head ordered - on mechanical ventilation - discussed with Dr. Damian, further management per [employer] Sales Associate - ultimate plan is to transfer to [facility], when weather improves STATUS EPILEPTICUS - given multiple boluses of Diprivan at the ER on Keppra - likely from #1 - Neurology consulted METABOLIC AND RESPIRATORY ACIDOSIS - pH improved from 7.05 to 7.3 - [facility] vent management per [employer] - received IV fluids monitor Lactic acid HYPERTENSION - on Nicardipine drip ATRIAL FIBRILLATION ON COUMADIN - currently on sinus rhythm hold coumadin for intracranial bleed HISTORY OF ALCOHOL ABUSE - last drink December 2016 DVT PROPH - SCDs only in light of intracranial bleed FULL CODE PER DISPOSITION pending awaiting transfer to [facility] discussed with patient's and mother at bedside, they are comfortable and agreeable with plan of care Advanced Directives Existing Living Will: No Existing Power of Carpenter Form: No VTE Prophylaxis VTE Risk Assessment Done? Y/N: Yes Risk Level: Moderate Given or contraindicated: SCD's
[2017-03-28 05:58] LABS: INR 1.4 (0.9-1.1); PROTHROMBIN TIME (PATIENT) 14.7 SECONDS (9.0-12.0)
[2017-03-28] MEDS ORDERED: PIPERACILL/TAZOBAC IV 3.375 GM in DEXTROSE 5% 100ML 100 ML IV SCH (06:00)
[2017-03-28 06:30] LABS: BUN/CREATININE RATIO 10.2 (10-20); CALCIUM 7.6 mg/dl (8.5-10.1); CREATININE 0.84 mg/dl (0.60-1.40); MAGNESIUM 1.7 mg/dl (1.8-2.4); POTASSIUM 3.2 mmol/L (3.5-5.1)
[2017-03-28 06:35] LABS: HEMATOCRIT 41.4 % (42-52); MEAN CELL VOLUME 87.5 fL (80-100); MEAN CORPUSCULAR HEMOGLOBIN 30.2 pg (25-34); MEAN CORPUSCULAR HGB CONC 34.5 g/dl (32-36); MEAN PLATELET VOLUME 9.4 fL (7.4-10.4); PLATELET COUNT 307 K/uL (130-400); RED BLOOD COUNT 4.73 M/uL (4.7-6.1); WHITE BLOOD COUNT 18.99 K/uL (4.8-10.8)
--- NOTE | 2017-03-28 06:41 | DIAGNOSTIC IMAGING REPORT ---
HEAD WITHOUT CONTRAST (CT) CLINICAL HISTORY: 56 years-old Male with FU brain bleed. Acute intracranial hemorrhage follow-up exam TECHNIQUE: Multiple axial CT images of the head were obtained without contrast. A dose lowering technique was utilized adhering to the principles of ALARA. CT DOSE: 614.27 mGy.cm COMPARISON: CT abdomen 03/27/2017. FINDINGS: Focal intraparenchymal hemorrhage within the right lentiform nucleus and external capsule region again seen, 1.9 x 0.6 cm, previously 1.8 x 0.6 cm. Additional smaller 3 mm focal hemorrhage is seen within the globus pallidus, unchanged in size and appearance. Mild amount of surrounding vasogenic edema is noted with leftward midline shift of 2 mm, unchanged. Mild background cerebral atrophy is present. There is no intraventricular hemorrhage extension. No hydrocephalus or extra-axial fluid collections identified. Bones are intact. Mastoid air cells and middle ear cavities are clear. There is minimal right maxillary sinus disease. Soft tissues and orbits are unremarkable. IMPRESSION: 1. Unchanged size and appearance of intraparenchymal hematoma within the right lentiform nucleus and external capsule region with mild amount of surrounding vasogenic edema and only minimal leftward midline shift, also stable. 2. No hydrocephalus or intraventricular hemorrhage extension. The above report was generated using voice recognition software. It may contain grammatical, syntax or spelling errors. Electronically signed by: Kristopher Mooney M.D. 03/28/2017 6:39 AM Dictated Date/Time: 03/28/2017 6:35 AM
[2017-03-28 06:46] LABS: PHOSPHORUS 3.1 mg/dl (2.5-4.9)
[2017-03-28 07:57] LABS: COMPLETE YES; IG% 0.4 %; LYMPH % 3.7 %; LYMPH ABS # 0.71 K/uL (1.2-3.4); MONO % 7.4 %; NEUT % 88.5 %
[2017-03-28] MEDS ORDERED: PANTOprazole INJ 40 MG in SYRINGE 0 ML IV SCH (09:00)
[2017-03-28] MEDS ORDERED: VANCOMYCIN INJ 1,000 MG in SODIUM CHLORIDE 0.9% 250ML 250 ML IV SCH (09:00)
--- NOTE | 2017-03-28 09:04 | EEG Procedure Note ---
EEG Procedure Note Date of Service Mar 28, 2017. Start / End Times Start Time: 03/28/2017 at 1:15 AM End Time: 03/28/2017 at 9:19 AM Referring Physician Moshe Ross History This is 56-year-old male who presented with seizure-like activity/status and brain hemorrhage. Continuous EEG for further evaluation and management of seizures. Home Medication List Scheduled Alendronate Sodium (Fosamax), 70 MG PO WK Folic Acid (Folic Acid), 1 MG PO QAM Gabapentin (Neurontin), 100 MG PO TID Irbesartan (Avapro), 300 MG PO HS Magnesium Oxide (Mag-Ox), 400 MG PO DAILY Metoprolol Tartrate (Lopressor) (Lopressor), 100 MG PO BID Multivitamins (Daily Maryjane), 1 TAB PO DAILY Omeprazole (Prilosec), 20 MG PO DAILY Thiamine HCl (Vitamin B-1), 100 MG PO Q24H Warfarin Sod (Jantoven), 2.5 MG PO 6XWK Warfarin Sod (Jantoven), 5 MG PO SATURDAY Scheduled PRN Ibuprofen (Motrin), 400 MG PO BID PRN for Pain Oxycodone Hcl (Oxycodone Hcl), 1 CAP PO TID PRN for severe pain Inpatient Medication List Current Inpatient Medications Medications (Trade) Dose Ordered Sig/Oliva Route Start Time Stop Time Status Last Admin Dose Admin Pantoprazole Sodium 40 mg/ Syringe 10 ml @ 5 mls/min DAILY IV 03/28/17 09:00 04/27/17 08:59 03/28/17 08:26 5 MLS/MIN Nicardipine HCl 25 mg/Sodium Chloride 250 ml @ 2 mls/hr Q24H PRN IV 03/27/17 22:17 04/26/17 22:16 03/27/17 22:42 2 MLS/HR Sodium Bicarbonate 250 meq/Empty Bag 250 ml @ 10 mls/hr Q24H IV 03/27/17 22:30 04/26/17 22:29 Metoprolol Tartrate (Lopressor Iv) 5 mg Q5M PRN IV 03/27/17 23:00 04/26/17 22:59 03/28/17 03:10 5 MG Acetaminophen (Tylenol Soln) 1,000 mg Q6H PRN PO 03/27/17 23:45 04/26/17 23:44 03/28/17 05:00 1,000 MG Diltiazem HCl 125 mg/Dextrose 125 ml @ 0 mls/hr Q0M PRN IV 03/28/17 00:15 04/27/17 00:14 03/28/17 00:45 5 MLS/HR Piperacillin Sod/ Tazobactam Sod 3.375 gm/Dextrose 115 ml @ 28 mls/hr Q8H IV 03/28/17 06:00 04/04/17 05:59 03/28/17 06:36 28 MLS/HR Vancomycin HCl (Consult) 1 ea DAILY PRN N/A 03/28/17 01:24 04/27/17 01:23 Piperacillin Sod/ Tazobactam Sod (Consult) 1 ea UD PRN N/A 03/28/17 01:00 04/27/17 00:59 Description This is a 21 electrode continuous video EEG with a single channel dedicated to limited EKG on [employer] equipment. The electrodes were placed in accordance with the International 10-20 system. Post processing with an event detection algorithm is applied to the continuous data collection for the purpose of identifying abnormal epochs. These detections are reviewed and all candidate seizures are processed for further analysis. Data is reviewed in its raw format and patient events are processed, edited and stored. At the start of this recording the patient was unresponsive, sedated, and intubated in the ICU. Background was poorly organized with no anterior to posterior gradient. Background was composed of symmetric predominantly moderate amplitude 1-2 Hz delta frequencies with superimposed intermittent alpha and theta frequencies. Rarely beta frequencies were seen. Towards the end of the recording more theta frequencies were seen in the background after 8 AM. There was occasional generalized moderate amplitude sharp and spike waves that were rarely periodic at 1- 2 Hz for 1-4 seconds. After 4 AM generalized spike and sharp waves became rare. No abnormal clinical movements noted on video review Interpretation This is an abnormal continuous video EEG secondary to: 1) occasional to rare intermittent sharp and spike waves which were rarely periodic at 1-2 Hz 2) moderate background disorganization and slowing Clinical Correlation This EEG indicates: 1) generalized cerebral irritability and decreased seizure threshold 2) moderate generalized encephalopathy of nonspecific etiology There was no electrographic seizures.
[2017-03-28] MEDS ORDERED: VECURONIUM BROMIDE 10 MG VIAL IV ONE (09:49)
--- NOTE | 2017-03-28 10:05 | Procedure Note ---
Procedure Note Date of Service Mar 28, 2017. Procedure Note Arterial line placement This procedure was performed at 1 am Consent Informed consent was obtained from his after indications potential complications and alternative managements were discussed with her Monitoring throughout the procedure he was monitored with ECG pulse oximetry and BP cuff Anesthesia he was on versed intubated and sedated. In addition local lidocaine was given procedure note After time out was performed the right wrist area was prepared and draped in the usual sterile fashion using topical chlorhexidine. The radial artery was palpated, anesthesia was applied topically with 1% lidocain and a arterial line was inserted in an attempt to cannulate the artery. The first stick resulted in blood flashback, but no wire threading was possible. The catheter was changed and accessing the a line was reattempted with success in cannulating the artery and threading the wire. The plastic catheter was then advanced over the guidewire in the usual sterile fashion. The catheter was then sutured in place and dressed in the usual fashion. Proper arterial waves were obtained and the patient was given nicardepine titrated to SBP 140 or less cardizem drip titrated to HR <110 with PRN metoprolol. complications none EBL 5 ml
--- NOTE | 2017-03-28 20:48 | Discharge Summary ---
Discharge Summary Date of Service Mar 28, 2017. Discharge Summary Admission Date: Mar 27, 2017 at 21:44 Discharge Date: Mar 28, 2017 Discharge Disposition: Acute care facility Principal Diagnosis: INTRACRANIAL HEMORRHAGE- RIGHT EXTERNAL CAPSULE, BASAL GANGLIA CHRONIC ANTICOAGULATION WITH COUMADIN Secondary Diagnoses/Problems: Please refer to hospital course below. Procedures: A LINE PLACEMENT; EEG Consultations: POULTRY PINNER, NEUROLOGY Pending Studies/Follow-Up: Please refer to hospital course below. Admission Information HPI (per Admitting provider): 56 year old male with history of Atrial Fibrillation on coumadin, Hypertension, other problems noted below presenting with unresponsiveness. Follows with Dr. Lala for PCP and Dr. Harrison for Patient Service Associate. History obtained from patient's at bedside as patient is intubated. Per his , patient was feeling fine the past few days, although he reports to her that his blood pressure has not been under good control lately and that his medications are being adjusted by his doctors. Patient was last seen by his this morning before she went to work. Upon arriving this evening from work, patient's found him in the bathroom, unresponsive, incontinent of urine, and was breathing heavily. She then called 911. En route to the ER, patient was noted to have seizures and was given Ativan and Versed, eventually intubated. At the ER, patient was still having continuous seziures, prompting Propofol drip and Keppra to be started. He was also noted be hypertensive, and was given Labetalol. CT head revealed : 1.9 x 0.6 cm acute intraparenchymal hematoma within the right external capsule and basal ganglia. Mild associated edema with no significant mass effect. This may reflect a hypertensive hemorrhage. INR was found to be 3.5 and patient was given Vit K. On my exam, patient is intubated, not in distress, no signs of active seizure. Pupils ~3mm equal, reactive to light. Physical Exam (per Admitting): General Appearance: no apparent distress, + pertinent finding (intubated, sedated) Head: normocephalic, atraumatic Eyes: normal inspection, PERRL ENT: normal ENT inspection, + pertinent finding (intubated) Neck: no adenopathy, thyroid normal, no JVD, trachea midline Respiratory/Chest: lungs clear, normal breath sounds, no respiratory distress, no accessory muscle use Cardiovascular: no edema, no JVD, no murmur, + tachycardia Abdomen/GI: normal bowel sounds, soft, no organomegaly Extremities/Musculoskelatal: normal inspection, no calf tenderness, no pedal edema Neurologic/Psych: + pertinent finding (pupils equal round reactive to light) Skin: normal color, warm/dry, no rash Lymphatic: no adenopathy Hospital Course 56 year old male with history of Atrial Fibrillation on coumadin, Hypertension, other problems noted below presenting with unresponsiveness. INTRACRANIAL HEMORRHAGE- RIGHT EXTERNAL CAPSULE, BASAL GANGLIA CHRONIC ANTICOAGULATION WITH COUMADIN - INR 3.5 , given Vitamin K IV--> INR 1.3 - repeat CT head ordered: IMPRESSION: 1. Unchanged size and appearance of intraparenchymal hematoma within the right lentiform nucleus and external capsule region with mild amount of surrounding vasogenic edema and only minimal leftward midline shift, also stable. 2. No hydrocephalus or intraventricular hemorrhage extension. - on mechanical ventilation - transferred to [facility] for further management STATUS EPILEPTICUS - given multiple boluses of Diprivan at the ER--> changed to Versed in the ICU placed on Keppra - likely from #1 - Neurology consulted EEG monitoring ordered METABOLIC AND RESPIRATORY ACIDOSIS - pH improved from 7.05 to 7.3 - received IV fluids monitored Lactic acid HYPERTENSION - on Nicardipine drip--> changed to Cardizem drip POSSIBLE ASPIRATION PNEUMONIA - placed on Vanco + Zosyn ATRIAL FIBRILLATION ON COUMADIN - currently on sinus rhythm hold coumadin for intracranial bleed HISTORY OF ALCOHOL ABUSE - last drink December 2016 DVT PROPH - SCDs only in light of intracranial bleed FULL CODE PER DISPOSITION transferred to [facility] Total time spent on discharge = This includes examination of the patient, discharge planning, medication reconciliation, and communication with other providers. Discharge Instructions patient transferred to [facility]
[2017-03-30 00:05] LABS: HYDROXYETHYLFLURAZEPAM CONF NEGATIVE NG/ML (CUTOFF=50); HYDROXYMIDAZOLAM NEGATIVE NG/ML (CUTOFF=50); HYDROXYTRIAZOLAM CONF NEGATIVE NG/ML (CUTOFF=50); TEMAZEPAM CONF NEGATIVE NG/ML (CUTOFF=50)
== END 2017-03-28 09:50 | disposition short-term general hospital (02) | DRG 64 ==
LOC: C.EDB 19:32 → C.MSICU 21:44 → ENRESERV 22:03
PROVIDERS: ADMIT Internal Medicine; ATTEND Internal Medicine
PROC: 5A1935Z Respiratory Ventilation, Less than 24 Consecutive Hours (ICD-10-PCS; principal; 2017-03-27)
PROC: 03HY32Z Insertion of Monitoring Device into Upper Artery, Percutaneous Approach (ICD-10-PCS; 2017-03-28)
DX: I61.8 Other nontraumatic intracerebral hemorrhage (principal); J69.0 Pneumonitis due to inhalation of food and vomit; I48.92 Unspecified atrial flutter; E87.2 Acidosis; G40.901 Epilepsy, unspecified, not intractable, with status epilepticus; F10.20 Alcohol dependence, uncomplicated; K70.30 Alcoholic cirrhosis of liver without ascites; I48.91 Unspecified atrial fibrillation; D86.0 Sarcoidosis of lung; F43.21 Adjustment disorder with depressed mood; E78.5 Hyperlipidemia, unspecified; I10 Essential (primary) hypertension; Z79.01 Long term (current) use of anticoagulants; M48.02 Spinal stenosis, cervical region